=== PATIENT | female | born 1960 | race Caucasian/White ===

== ENCOUNTER 2020-11-06 13:28 | Outpatient (REF) | payer MEDICAID, SELFPAY ==
--- NOTE | ~2020-11-06 | US_ITS ---
EXAMINATION: US RETROPERITONEAL LIMITED (RENAL ONLY) CLINICAL INFORMATION: Renal stones. COMPARISON: Renal ultrasound 11/06/2019 and 08/14/2019. KUB 09/19/2019 and 09/07/2017. CT abdomen and pelvis 07/22/2017. TECHNIQUE: Real-time imaging of the kidneys. FINDINGS: RIGHT KIDNEY: 11.5 x 4.0 x 5.0 cm (SAG x AP x TRV). The kidney is normal in size, contour, and echogenicity. Renal cortical thickness is normal. No calculi or focal parenchymal lesions. No hydronephrosis. LEFT KIDNEY: 10.6 x 3.7 x 5.1 cm (SAG x AP x TRV). The kidney is normal in size, contour, and echogenicity. Renal cortical thickness is normal. No calculi or focal parenchymal lesions. No hydronephrosis. US/US renal BI IMPRESSION: Normal renal ultrasound.
== END 2020-11-06 13:29 | disposition home or self-care (01) ==
LOC: HO.US 13:28
PROVIDERS: Visit Provider Urology
DX: N20.0 Calculus of kidney (principal)
CPT/HCPCS: 76775

== ENCOUNTER 2020-11-06 14:12 | Outpatient (REF) | payer MEDICAID, SELFPAY | END 2020-11-06 14:13 | disposition home or self-care (01) | LOC: HO.LAB 14:12 | PROVIDERS: Visit Provider Internal Medicine | DX: Z20.822 Contact with and (suspected) exposure to COVID-19 (principal) | CPT/HCPCS: 36415; C9803; U0003; U0005 ==

== ENCOUNTER → 2020-11-20 15:05 | Outpatient (BNVA) | payer MEDICAID, SELFPAY | PROVIDERS: PCP Internal Medicine Geriatric Medicine; Visit Provider Urology ==

== ENCOUNTER 2021-02-26 12:55 | Emergency (ER) | payer MEDICAID, SELFPAY ==
--- NOTE | 2021-02-26 | ECG_ITS ---
Test Reason : CHEST PAIN Blood Pressure : / mmHG Vent. Rate : 086 BPM Atrial Rate : 086 BPM P-R Int : 172 ms QRS Dur : 082 ms QT Int : 400 ms P-R-T Axes : 041 060 071 degrees QTc Int : 478 ms Normal sinus rhythm Lateral T- wave changes - consider ischemia (repeat ECG to assess for serial changes) Abnormal ECG When compared to the previous EKG of Lateral T wave changes present Referred By: Generic ED Physician Electronically Signed By:Bertin Leonard
--- NOTE | ~2021-02-26 | XR_ITS ---
EXAMINATION: XR CHEST CLINICAL INFORMATION: Chest pain. COMPARISON: 12/06/2018 chest radiographs. TECHNIQUE: Frontal view of the chest was obtained. FINDINGS: No significant abnormality is noted involving the heart, lungs, mediastinum, bony thorax or soft tissues. XR/XR chest 1V IMPRESSION: No acute cardiopulmonary process.
[2021-02-26 13:00] VITALS: BP 137/74; PULSE 88; RESP 18; TEMP 37.1; O2SAT 96; BMI 35.6
--- NOTE | 2021-02-26 15:01 | ECG_ITS ---
Test Reason : REPEAT Blood Pressure : / mmHG Vent. Rate : 083 BPM Atrial Rate : 083 BPM P-R Int : 166 ms QRS Dur : 082 ms QT Int : 418 ms P-R-T Axes : 039 073 064 degrees QTc Int : 491 ms Normal sinus rhythm with sinus arrhythmia Nonspecific T wave changes Prolonged QT Abnormal ECG When compared with ECG of 26-FEB-2021 13:11, No significant change was found Referred By: Jyoti De La Rosa Electronically Signed By:Bertin Leonard
--- NOTE | 2021-02-26 15:02 | ED.CHESTPAIN ---
HPI - Chest Pain General Chief Complaint: Chest Pain Stated Complaint: chest pain Time Seen by Provider: 02/26/21 13:23 Source: patient Mode of arrival: ambulatory Limitations: no limitations History of Present Illness MD complaint: chest pain Onset (ago): day(s) (Tuesday then came back today worse since waking this AM) Timing of current episode: constant Prior episodes: Yes Onset: during rest Pain location: substernal Pain radiation: neck Severity: moderate Quality: heaviness Relieving factors: nothing Exacerbating factors: nothing Treatment prior to arrival: none Related Data Home Medications Medication Instructions Recorded Confirmed No Known Home Meds 11/20/20 11/20/20 Allergies Allergy/AdvReac Type Severity Reaction Status Date / Time acetaminophen Allergy Unknown MAKES HER Verified 02/26/21 12:59 [From EXCEDRIN BACK & BODY] FEEL SICK aspirin Allergy Unknown MAKES HER Verified 02/26/21 12:59 [From EXCEDRIN BACK & BODY] FEEL SICK calcium carbonate Allergy Unknown MAKES HER Verified 02/26/21 12:59 [From EXCEDRIN BACK & BODY] FEEL SICK caffeine AdvReac Unknown feels dizzy Verified 02/26/21 12:59 [Excedrin Extra Strength] Review of Systems Review of Systems: Constitutional : No Weight loss, No Fever, No Chills ENT/Mouth : No sore throat, No Rhinorrhea Eyes: No Eye Pain, No Swelling Cardiovascular : pos Chest Pain, no SOB, no Dyspnea on Exertion, No Orthopnea, No Edema, No Palpitations Respiratory : No Cough, No Sputum Gastrointestinal : no Nausea, No Vomiting, No Diarrhea, No abdominal Pain, No Hematochezia, No Melena Genitourinary : No Dysuria, No Urinary Frequency Musculoskeletal : No joint pain, No Myalgias, No Joint Swelling Skin : No Skin Lesions, No rash Neuro : No Weakness, No Numbness, No Dizziness, No Headache Psych : No Anxiety/Panic, No Depression Heme/Lymph: No Bruising, No Lymphadenopathy Endocrine : No Polyuria, No Polydipsia All other systems reviewed and are negative [facility] Past Medical History Medical History Asthma HTN (hypertension) Social History Social History (Updated 02/26/21 @ 15:29 by Jyoti De La Rosa DO) Patient Tobacco Use Status: Never used Tobacco Use of substances other than those prescribed or required for medical reasons: No Advance Directives: Yes Advance Directives Information Provided: Yes Advance Directives on File: No Physical Exam Vital Signs: Vital Signs: Last Vital Signs Temp 98.7 F 02/26/21 13:00 Pulse 88 02/26/21 13:00 Resp 18 02/26/21 13:00 BP 137/74 02/26/21 13:00 Pulse Ox 96 02/26/21 13:00 Body Mass Index 35.6 Appearance: Alert. Oriented X3. No acute distress. Eyes: Pupils equal, round and reactive to light. ENT: Pharynx normal. Neck: Normal inspection. Neck supple. CVS: Normal heart rate and rhythm. Pulses normal. Chest: ttp along upper costochondral border Respiratory: No respiratory distress. Breath sounds normal. Abdomen: Soft and nontender. Skin: Skin warm and dry. Normal skin color. Normal skin turgor. Extremities: No lower extremity edema. No calf ttp Neuro: Oriented X 3. No motor deficit. No sensory deficit. Course Course Course Narrative: signed out to Dr. Diaz pending labs and workup MDM - Chest Pain MDM Narrative Medical decision making narrative: 60 yo female with asthma, HTN, denies prior heart disease c/o chest pain and states her lungs hurt, it happened last week and resolved returns today early this AM she has nonspecific EKG changes does not meet criteria for STEMI will need labs, troponin, IV morphine for pain, ddimer, has allergy to aspirin - dispo per results and findings. ECG Data ECG #1: Attestation: I personally reviewed and interpreted this ECG as follows: ECG interpretation date: 02/26/21 ECG interpretation time: 15:13 Interpretation: Rate: 83 Rhythm: NSR [place]: normal Normal P waves. Normal LA NENA. Normal QRS complex. ST T wave : nonspecific I and aVL does not meet criteria for 1mm HARVEY, bipashic t wave in aVL qTC: prolonged prior studies: changed in lateral leads from 2015 The study has been interpreted contemporaneously by me. . Discharge Plan Discharge Clinical Impression: Chest pain Prescriptions: No Action No Known Home Meds RF: 0
[2021-02-26] MEDS: ondansetron HCL 4 MG/2 ML VIAL IVPUSH (16:26)
[2021-02-26] MEDS: Morphine Sulfate 4 MG/ML CARTRIDGE IVPUSH (16:26)
[2021-02-26 16:30] VITALS: BP 132/77; PULSE 75; RESP 16; O2SAT 97
[2021-02-26 16:32] LABS: MANUAL DIFF FLAG NO
[2021-02-26 16:36] LABS: Basophils Percent Auto 0.2 % (0-2); Eosinophils Absolute Auto 0.1 X10*3/uL (0.0-0.4); Eosinophils Percent Auto 1.5 % (0-4); Hematocrit 40.8 % (37-47); Hemoglobin 12.5 g/dl (12.0-16.0); Imm Gran Abs Auto 0.02 X10*3/uL (0.00-0.03); Imm Gran Pct Auto 0.2 % (0.0-0.4); Lymphocytes Absolute Auto 1.5 X10*3/uL (1.2-4.9); Lymphocytes Percent Auto 18.2 % (20-40); Mean Corpuscular HGB Conc 30.6 g/dl (31.0-35.0); Mean Corpuscular Hemoglobin 26.7 pg (27.0-33.0); Mean Platelet Volume 11.1 fL (9.4-12.3); Monocytes Absolute Auto 0.5 X10*3/uL (0.1-1.2); Monocytes Percent Auto 5.8 % (2-11); Neutrophils Absolute Auto 6.2 X10*3/uL (2.0-8.3); Neutrophils Percent Auto 74.1 % (45-73); Platelet Count 239 X10*3/uL (160-400); Red Blood Count 4.69 X10*6/uL (4.20-5.50); Red Cell Distribution Width 14.6 % (11.0-16.0); White Blood Count 8.4 X10*3/uL (4.8-10.8)
[2021-02-26 16:41] LABS: INTERNATIONAL NORM RATIO 0.9 (0.9-1.1); Prothrombin Time 11.1 SEC (10.8-13.0)
[2021-02-26 16:44] LABS: Partial Thromboplastin Time 32.9 SEC (24.1-38.0)
[2021-02-26 16:49] LABS: D Dimer < 200 NG/ML
[2021-02-26 17:02] LABS: Alanine Aminotransferase 18 U/L (0-31); Albumin Level 4.3 g/dL (3.5-5.0); Alkaline Phosphatase 130 U/L (39-117); Anion Gap 15 (12-20); Aspartate Amino Transferase 13 U/L (5-31); Bilirubin Direct 0.2 mg/dL (0.0-0.5); Bilirubin Total 0.6 mg/dL (0.0-1.0); Blood Urea Nitrogen 25 mg/dL (9-16); Calcium 10.2 mg/dL (8.4-10.2); Carbon Dioxide 26 mmol/L (22-29); Chloride 104 mmol/L (96-108); Estimated Glomerular Filt Rate 59; Glucose Random 88 mg/dL (60-115); Potassium 4.2 mmol/L (3.3-5.1); Sodium 141 mmol/L (135-145); Total Protein 7.4 g/dL (6.5-8.0)
[2021-02-26 17:08] LABS: Troponin-I High Sensitivity 92.4 ng/L (<3.5-17.0)
[2021-02-26 17:26] LABS: B Type Natriuretic Peptide 54 pg/mL (<100)
--- NOTE | 2021-02-26 17:50 | ECG_ITS ---
Test Reason : CP, REPEAT Blood Pressure : / mmHG Vent. Rate : 099 BPM Atrial Rate : 099 BPM P-R Int : 160 ms QRS Dur : 082 ms QT Int : 378 ms P-R-T Axes : 040 072 059 degrees QTc Int : 485 ms Sinus rhythm with Premature atrial complexes Nonspecific T wave changes When compared with ECG of 26-FEB-2021 15:04, Premature atrial complexes are now Present Referred By: Sana Diaz Electronically Signed By:Bertin Leonard
[2021-02-26] MEDS: Aspirin Enteric Coated 325 MG TABLET.DR PO (18:01)
[2021-02-26] MEDS: Nitroglycerin 0.4 MG TAB.SUBL SUBLINGUAL (18:06)
[2021-02-26 18:13] VITALS: BP 138/77
[2021-02-26] MEDS: Heparin Sodium,Porcine 5,000 UNIT/ML VIAL 3400 UNIT IVPUSH (18:38)
[2021-02-26] MEDS: Heparin Sodium,Porcine/1/2NS 25,000 UNIT/250 ML IV.SOLN 11.97 UNIT IVCONT (18:39)
[2021-02-26] MEDS: Ticagrelor 90 MG TABLET 180 MG PO (18:44)
[2021-02-26 18:45] LABS: Troponin-I High Sensitivity 84.1 ng/L (<3.5-17.0)
--- NOTE | 2021-02-26 18:47 | PC.NURSE ---
B/P 176/94, pain level 9. Sublingual nitro tab given, pt reports pain level 8, bp 138/78. O2 sat 92% RA, 2L NC applied , o2 sat 97%. Pt ST on monitor. Heparin drip started per protocol at 14u/kg/hr. Pt pending transfer to [facility]. Attempting to place second iv line, son at bedside.
--- NOTE | 2021-02-26 19:10 | PC.NURSE ---
report givn to
--- NOTE | 2021-02-26 19:10 | PC.NURSE ---
Report given to receiving nurse Lizette RN at [facility].
== END 2021-02-26 19:28 | disposition short-term general hospital (02) ==
PROVIDERS: Emergency Medicine; Emergency Provider Emergency Medicine; PCP Internal Medicine Geriatric Medicine
DX: R07.9 Chest pain, unspecified (principal); J45.909 Unspecified asthma, uncomplicated; I10 Essential (primary) hypertension
CPT/HCPCS: 36415; 71045; 80048; 80076; 83735; 83880; 84484; 85025; 85379; 85610; 85730; 93005; 96374; 96375; 99285; 99291; J2270; J2405

== ENCOUNTER 2021-04-20 09:37 | Outpatient (REF) | payer MEDICAID, SELFPAY | END 2021-04-20 09:38 | disposition home or self-care (01) | LOC: HO.LAB 09:37 | PROVIDERS: PCP Internal Medicine Geriatric Medicine; Visit Provider Internal Medicine | DX: Z20.822 Contact with and (suspected) exposure to COVID-19 (principal) | CPT/HCPCS: C9803; U0003; U0005 ==

== ENCOUNTER 2021-05-29 13:55 | Outpatient (REF) | payer MEDICAID, SELFPAY ==
--- NOTE | ~2021-05-29 | MM_ITS ---
EXAMINATION: MM SCREENING DIGITAL BREAST TOMOSYNTHESIS, BILATERAL CLINICAL INFORMATION: Screening. Asymptomatic. The lifetime risk of breast cancer based on the Tyrer-Cuzick Model is 5%. COMPARISON: Mammography: 12/21/2018, 10/31/2017, 09/17/2016 TECHNIQUE: Digital breast tomosynthesis is performed in both the craniocaudal and mediolateral oblique views along with computer-aided detection (CAD). Synthesized 2D images are generated from the tomosynthesis. FINDINGS: There are scattered areas of fibroglandular density (ACR BI-RADS breast composition Category b). There are no significant masses, abnormal calcifications, or other abnormalities. Parenchymal pattern is similar to prior studies. Scattered asymmetries are stable. There is no developing density. No interval mass or architectural abnormality. MM/MM tomosynthesis screening BI IMPRESSION: No mammographic evidence of malignancy. ASSESSMENT: BI-RADS 2: Benign RECOMMENDATION: Routine annual mammography screening. This patient's information was entered into a reminder system with a target due date for their next mammogram.
== END 2021-05-29 13:56 | disposition home or self-care (01) ==
LOC: HO.MAMMO 13:55
PROVIDERS: PCP Internal Medicine Geriatric Medicine; Visit Provider Internal Medicine Geriatric Medicine
DX: Z12.31 Encounter for screening mammogram for malignant neoplasm of breast (principal)
CPT/HCPCS: 77063; 77067

== ENCOUNTER 2021-10-14 14:02 | Outpatient (REF) | payer MEDICAID, SELFPAY ==
--- NOTE | ~2021-10-14 | US_ITS ---
EXAMINATION: US RETROPERITONEAL LIMITED (RENAL ONLY) CLINICAL INFORMATION: Calculus of kidney. COMPARISON: Renal ultrasound 11/06/2020 and 11/06/2019. X-ray abdomen KUB 09/19/2019. CT abdomen and pelvis 07/22/2017. TECHNIQUE: Real-time imaging of the kidneys. FINDINGS: RIGHT KIDNEY: 10.6 x 4.1 x 4.6 cm (SAG x AP x TRV). The kidney is normal in size, contour, and echogenicity. Renal cortical thickness is normal. No calculi or focal parenchymal lesions. No hydronephrosis. LEFT KIDNEY: 10.2 x 3.3 x 4.4 cm (SAG x AP x TRV). The kidney is normal in size, contour, and echogenicity. Renal cortical thickness is normal. No calculi or focal parenchymal lesions. No hydronephrosis. US/US renal BI IMPRESSION: Unremarkable renal ultrasound.
== END 2021-10-14 14:03 | disposition home or self-care (01) ==
LOC: HO.US 14:02
PROVIDERS: Visit Provider Urology
DX: N20.0 Calculus of kidney (principal)
CPT/HCPCS: 76775

== ENCOUNTER → 2021-11-20 11:31 | Outpatient (BNVA) | payer MEDICAID, SELFPAY | PROVIDERS: PCP Internal Medicine Geriatric Medicine | DX: Z13.89 Encounter for screening for other disorder (principal) ==

== ENCOUNTER → 2021-12-04 10:10 | Outpatient (BNVA) | payer MEDICAID, SELFPAY | PROVIDERS: PCP Internal Medicine Geriatric Medicine | DX: Z13.89 Encounter for screening for other disorder (principal) ==

== ENCOUNTER 2022-06-01 12:53 | Outpatient (REF) | payer MEDICAID, SELFPAY ==
--- NOTE | ~2022-06-01 | MM_ITS ---
EXAMINATION: MM SCREENING DIGITAL BREAST TOMOSYNTHESIS, BILATERAL CLINICAL INFORMATION: Screening. Asymptomatic. The lifetime risk of breast cancer based on the Tyrer-Cuzick Model is 4%. COMPARISON: Mammography: 05/29/2021, 12/21/2018, 10/31/2017 TECHNIQUE: Digital breast tomosynthesis is performed in both the craniocaudal and mediolateral oblique views along with computer-aided detection (CAD). Synthesized 2D images are generated from the tomosynthesis. FINDINGS: There are scattered areas of fibroglandular density (ACR BI-RADS breast composition Category b). There are no significant masses, abnormal calcifications, or other abnormalities. No developing density or interval architectural abnormality. Minor asymmetries stable. Parenchymal pattern is similar to prior studies. The axilla are unremarkable. MM/MM tomosynthesis screening BI IMPRESSION: No mammographic evidence of malignancy. ASSESSMENT: BI-RADS 2: Benign RECOMMENDATION: Routine annual mammography screening. This patient's information was entered into a reminder system with a target due date for their next mammogram.
== END 2022-06-01 12:54 | disposition home or self-care (01) ==
LOC: HO.MAMMO 12:53
PROVIDERS: PCP Internal Medicine Geriatric Medicine; Visit Provider Internal Medicine Geriatric Medicine
DX: Z12.31 Encounter for screening mammogram for malignant neoplasm of breast (principal)
CPT/HCPCS: 77063; 77067

== ENCOUNTER 2022-07-06 08:51 | Outpatient (REF) | payer MEDICAID, SELFPAY ==
--- NOTE | ~2022-07-06 | US_ITS ---
EXAMINATION: US RETROPERITONEAL LIMITED (RENAL ONLY) CLINICAL INFORMATION: Calculus of kidney. COMPARISON: Ultrasound retroperitoneal limited (renal only) 10/14/2021 and 11/06/2020. X-ray abdomen KUB 09/19/2019 and 09/07/2017. CT abdomen and pelvis without contrast 07/22/2017. MR abdomen without and with contrast 07/02/2016. TECHNIQUE: Real-time imaging of the kidneys. FINDINGS: RIGHT KIDNEY: 10.9 x 3.8 x 4.4 cm (SAG x AP x TRV). The kidney is normal in size, contour, and echogenicity. Renal cortical thickness is normal. No calculi or focal parenchymal lesions. No hydronephrosis. LEFT KIDNEY: 8.8 x 3.3 x 4.9 cm (SAG x AP x TRV). The kidney is normal in size, contour, and echogenicity. Renal cortical thickness is normal. No calculi or focal parenchymal lesions. No hydronephrosis. US/US renal BI IMPRESSION: Normal renal ultrasound. No stone seen.
== END 2022-07-06 08:52 | disposition home or self-care (01) ==
LOC: HO.US 08:51
DX: N20.0 Calculus of kidney (principal)
CPT/HCPCS: 76775

== ENCOUNTER 2022-08-04 08:00 | Outpatient (REF) | payer MEDICAID, SELFPAY ==
--- NOTE | ~2022-08-04 | XR_ITS ---
EXAMINATION: XR HAND, RIGHT CLINICAL INFORMATION: M79.641 - Pain in right hand. Patient notes pain third finger PIP. COMPARISON: None TECHNIQUE: PA, lateral, and oblique views of the right hand. FINDINGS: No acute or healing fracture, dislocation, or destructive process. The ulnar variance is neutral. There are degenerative changes DIP joints, greatest index finger. The carpus, MCP, and PIP joints are unremarkable. XR/XR hand RT min 3V IMPRESSION: Degenerative changes DIP joints, greatest index finger.
== END 2022-08-04 08:01 | disposition home or self-care (01) ==
LOC: HO.HOSX 08:00
PROVIDERS: Visit Provider Physician Assistant
DX: M67.441 Ganglion, right hand (principal)
CPT/HCPCS: 73130; 99202; 99212

== ENCOUNTER → 2022-11-01 08:28 | Outpatient (REF) | payer MEDICAID, SELFPAY ==
--- NOTE | 2022-11-01 | CA_ITS ---
Acquisition Time: 2022-11-01 09:05:31 Total Exercise Time: 00:03:44 Test Indications: PREOP Medications: SEE CHART Protocol: LYNDSAY Max HR: 136 BPM 86% of Pred: 157 BPM Max BP: 142/062 mmHG Max Work Load: 5.2 METS Exercise stress test using Lyndsay protocol, total of 3 min 44 sec, patient was getting tired and treadmil was stopped. METS 5.2, TAPHR upt o 85%. Pt denies CP, reports SOB. EKG with occasional PAC's no ischemic changes seen, Test reviewed with Dr. Maldonado. Referred By: Anglea Mcgowan Overread By: Alivia Silva NP
== END ==
LOC: HO.CARD 08:28
PROVIDERS: PCP Nurse Practitioner Primary Care; Visit Provider Nurse Practitioner Primary Care
DX: Z01.818 Encounter for other preprocedural examination (principal)
CPT/HCPCS: 93017

== ENCOUNTER → 2022-11-18 07:58 | Outpatient (REF) | payer MEDICAID, SELFPAY ==
--- NOTE | 2022-11-18 | CA_ITS ---
Acquisition Time: 2022-11-18 08:14:03 Total Exercise Time: 00:02:00 Test Indications: Pre-Op Evaluation Medications: SEE H Protocol: LEXISCAN Max HR: 114 BPM 72% of Pred: 157 BPM Max BP: 132/070 mmHG Max Work Load: 1.0 METS Pharmacoloigcal stress test with Lexiscan while sitting and kicking her legs, without anginal symptoms, without arrthymias, with normotensive response with non-diagnostic EKG. Patient reversed with Aminophylline 75mg IVP. Nuclear images pending. Test reviewed with Dr. Leonard. Referred By: Angela Mcgowan Overread By: ZARI HORNE
--- NOTE | ~2022-11-18 | NM_ITS ---
Myocardial perfusion study Indication: Chest pain to evaluate for myocardial ischemia Technique: The patient was brought in for a Lexiscan perfusion study on 11/18/2022. Patient performed low-level exercise and was injected 0.4 mg of Lexiscan intravenously. Within a minute of injection, 30 mCi of sestamibi was given intravenously. Images were obtained using the SPECT gamma camera interlaced with the gating device. Images were obtained in supine position. Resting perfusion study was performed on 11/19/2022. Patient was administered 30 mCi of sestamibi intravenously at rest. Images were then obtained in supine position. Images obtained with and without CT attenuation. Total DLP 82 mGy-cm Images were processed with the software and compared side to side in short axis, horizontal long axis and vertical long axis views. Findings: Both stress and rest perfusion imaging was suboptimal due to intense subdiaphragmatic uptake interfering with inferior wall uptake The stress perfusion study showed non attenuated images were also show normal uptake of radiotracer in all segments of LV myocardium. Attenuation corrected images show mildly reduced uptake in the apex of the LV myocardium. The gated study shows normal LV systolic function with calculated LVEF of 51%. LV cavity is normal in size. The gated study shows normal systolic wall thickening and contraction of segments. Resting study shows non attenuated images show normal uptake of radiotracer in all segments of LV myocardium. Gating at rest reveals normal systolic wall motion with ejection fraction at 45%. The findings are consistent with normal myocardial perfusion. NM/NM naveed perf SPECT rest & str Impression: 1. Myocardial perfusion imaging study shows normal myocardial perfusion 2. Gated LVEF is 51% (visually appears to be minimal, consider performing in echocardiogram to assess LV systolic function more accurately 3. Transient ischemic dilatation not present EKG is nondiagnostic for ischemia
== END ==
LOC: HO.CARD 07:58
PROVIDERS: PCP Internal Medicine Geriatric Medicine; Visit Provider Nurse Practitioner Primary Care
DX: R07.9 Chest pain, unspecified (principal)
CPT/HCPCS: 78452; 93017; A9500; J0280; J2785

== ENCOUNTER 2022-11-29 08:55 | Outpatient (REF) | payer MEDICAID, SELFPAY ==
--- NOTE | ~2022-11-29 | US_ITS ---
EXAMINATION: US RETROPERITONEAL LIMITED (RENAL ONLY) CLINICAL INFORMATION: Calculus of kidney. COMPARISON: Renal ultrasound 07/06/2022 and 10/14/2021. X-ray abdomen KUB 09/19/2019. CT abdomen and pelvis 07/22/2017. TECHNIQUE: Real-time imaging of the kidneys. FINDINGS: RIGHT KIDNEY: 12.0 x 4.2 x 4.1 cm (SAG x AP x TRV). The kidney is normal in size, contour, and echogenicity. Renal cortical thickness is normal. No calculi or focal parenchymal lesions. No hydronephrosis. There is mild pelvic fullness.. LEFT KIDNEY: 10.3 x 3.6 x 4.6 cm (SAG x AP x TRV). The kidney is normal in size, contour, and echogenicity. Renal cortical thickness is normal. No calculi or focal parenchymal lesions. No hydronephrosis. There is mild pelvic fullness. US/US renal BI IMPRESSION: Bilateral mild pelvic fullness.
== END 2022-11-29 08:56 | disposition home or self-care (01) ==
LOC: HO.US 08:55
PROVIDERS: PCP Internal Medicine Geriatric Medicine; Visit Provider Urology
DX: N20.0 Calculus of kidney (principal)
CPT/HCPCS: 76775

== ENCOUNTER → 2022-12-10 13:36 | Outpatient (BNVA) | payer MEDICAID, SELFPAY | PROVIDERS: PCP Internal Medicine Geriatric Medicine; Visit Provider Urology ==

== ENCOUNTER 2023-03-21 13:08 | Outpatient (REF) | payer MEDICAID, SELFPAY | END 2023-03-21 13:09 | disposition home or self-care (01) | LOC: HO.LNP 13:08 | PROVIDERS: Visit Provider Internal Medicine | DX: Z20.822 Contact with and (suspected) exposure to COVID-19 (principal); J40 Bronchitis, not specified as acute or chronic | CPT/HCPCS: 87636 ==

== ENCOUNTER 2023-06-07 12:32 | Outpatient (REF) | payer MEDICAID, SELFPAY | END 2023-06-07 12:33 | disposition home or self-care (01) | LOC: HO.MAMMO 12:32 | PROVIDERS: Visit Provider Internal Medicine Geriatric Medicine | DX: Z12.31 Encounter for screening mammogram for malignant neoplasm of breast (principal) | CPT/HCPCS: 77063; 77067 ==

== ENCOUNTER → 2023-06-07 13:30 | Outpatient (BNV) | payer MEDICAID, SELFPAY | PROVIDERS: Visit Provider Radiology Diagnostic Radiology | DX: Z12.31 Encounter for screening mammogram for malignant neoplasm of breast (principal) | CPT/HCPCS: 77063; 77067 ==

== ENCOUNTER 2023-10-12 14:26 | Outpatient (AMB) | payer MEDICAID, SELFPAY ==
--- NOTE | 2023-10-12 15:49 | A.OFFVIS_ITS ---
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 Zipper Language: Hot Box Operator Name: Tiffaniemaranda GREGORIA Kline/REESE DANIELS Information Interpreted: non-clinical & clinical Accompanied by: Self / Same As Patient Allergies acetaminophen [From EXCEDRIN BACK & BODY] Allergy (Unknown, Verified 10/12/23 15:53) MAKES HER FEEL SICK aspirin [From EXCEDRIN BACK & BODY] Allergy (Unknown, Verified 10/12/23 15:53) MAKES HER FEEL SICK calcium carbonate [From EXCEDRIN BACK & BODY] Allergy (Unknown, Verified 10/12/23 15:53) MAKES HER FEEL SICK caffeine [Excedrin Extra Strength] Adverse Reaction (Unknown, Verified 10/12/23 15:53) feels dizzy Medication List - Last Reconciled 10/12/23 by Priscilla Mills MD albuterol sulfate 90 mcg/actuation (Ventolin HFA) 2 puffs inhalation Q6H PRN atorvastatin 20 mg PO DAILY cholecalciferol (vitamin D3) 25 mcg PO DAILY loratadine 10 mg PO DAILY losartan-hydrochlorothiazide 50-12.5 mg 1 tab PO DAILY pantoprazole 40 mg PO DAILY pyridoxine (vitamin B6) 100 mg PO DAILY sodium chloride 0.65% (Saline Nasal) 1 - 2 sprays intranasal Q2-3H PRN HPI HPI Comments 2 History of Present Illness Details 10/12/23--Cathy is a 63-year-old female patient here for followup for history of kidney stones. Pt states she is drinking alot of water at home and watching the sodium in the diet. She has had some left flank pain and is concerned about another kidney stone. She denies gross hematuria. She denies fever. Review of chart: 12/10/2022--Telehealth visit Renal US results reviewed?11/29/22-- Kidneys: WNL, no renal calculi visualized. Plan: 10/12/23--Advised to consume adequate amou nt of water. Low salt diet. Low oxalate diet. Renal ultrasound Vitamin B6 100 mg daily [facility] Medical History (Updated 10/12/23 @ 16:46 by Priscilla Mills MD) High cholesterol High blood pressure Asthma HTN (hypertension) Social History (Updated 08/04/22 @ 10:35 by Mesfin Rizzo) Alcohol intake: never Patient Tobacco Use Status: Never used Tobacco Current occupational status: retired Current occupation: right hand dominant Review of Systems Const All systems reviewed & are unremarkable except as noted in HPI and below Reports no additional complaints Eyes Reports no additional complaints ENT Reports no additional complaints Card Denies dyspnea Resp Denies cough and Denies dyspnea GI Reports no additional complaints Reports no additional complaints Musc Reports no additional complaints Skin/Breast Denies rash and Denies unusual bruising Neuro Reports no additional complaints Psych Reports no additional complaints Endo Reports no additional complaints Ben/Lymph Reports no additional complaints Aller/Immun Reports no additional complaints Results AMB Urinalysis, Automated UA Leukoctes 0 Sarahi/uL Last Edit by GREGORIA Jernigan on 10/12/23 16:00 UA Nitrite Negative Last Edit by GREGORIA Jernigan on 10/12/23 16:00 UA Urobilinogen 0.2 mg/dL Last Edit by GREGORIA Jernigan on 10/12/23 16:0 0 UA Protein 0 mg/dL Last Edit by GREGORIA Jernigan on 10/12/23 16:00 UA pH 6.0 Last Edit by GREGORIA Jernigan on 10/12/23 16:00 UA Blood 0 Zeus/uL Last Edit by GREGORIA Jernigan on 10/12/23 16:00 UA Specific [place] 1.015 Last Edit by GREGORIA Jernigan on 10/12/23 16: 00 UA Ketone Negative Last Edit by GREGORIA Jernigan on 10/12/23 16:00 UA Bilirubin 0 mg/dL Last Edit by GREGORIA Jernigan on 10/12/23 16:00 UA Glucose 0 mg/dL Last Edit by GREGORIA Jernigan on 10/12/23 16:00 Results Reviewed Results Reviewed: Laboratory Last Values Urine pH (Auto) 6.0 10/12/23 15:55 Specific [place] (Auto) 1.015 10/12/23 15:55 Urine Protein (Auto) 0 mg/dL 10/12/23 15:55 Glucose (UA)(Auto) 0 mg/dL 10/12/23 15:55 Urine Ketones (Auto) Negative 10/12/23 15:55 Urine Blood (Auto) 0 Zeus/uL 10/12/23 15:55 Urine Nitrite (Auto) Negative 10/12/23 15:55 Urine Bilirubin (Auto) 0 mg/dL 10/12/23 15:55 Urine Urobilinogen (Auto) 0.2 mg/dL 10/12/23 15:55 Leukocyte Esterase (Auto) 0 Sarahi/uL 10/12/23 15:55 Date of Service: 11/29/22 EXAMINATION: US RETROPERITONEAL LIMITED (RENAL ONLY) CLINICAL INFORMATION: Calculus of kidney. COMPARISON: Renal ultrasound 07/06/2022 and 10/14/2021. X-ray abdomen KUB 09/19/2019. CT abdomen and pelvis 07/22/2017. TECHNIQUE: Real-time imaging of the kidneys. FINDINGS: RIGHT KIDNEY: 12.0 x 4.2 x 4.1 cm (SAG x AP x TRV). The kidney is normal in size, contour, and echogenicity. Renal cortical thickness is normal. No calculi or focal parenchymal lesions. No hydronephrosis. There is mild pelvic fullness.. LEFT KIDNEY: 10.3 x 3.6 x 4.6 cm (SAG x AP x TRV). The kidney is normal in size, contour, and echogenicity. Renal cortical thickness is normal. No calculi or focal parenchymal lesions. No hydronephrosis. There is mild pelvic fullness. IMPRESSION: Bilateral mild pelvic fullness. Assessment & Plan Assessment & Plan (1) History of renal calculi: Code(s): Z87.442 - Personal history of urinary calculi (2) Left flank discomfort: Code(s): R10.9 - Unspecified abdominal pain Plan Advised to consume adequate amount of water. Low salt diet. Low oxalate diet. Renal ultrasound Vitamin B6 100 mg daily Orders: Orders AMB Urinalysis Automated Today Z13.9 - Encounter for screening, unspecified US renal BI Today Z87.442 - Personal history of urinary calculi US renal BI 11 Months Z87.442 - Personal history of urinary calculi Medications: New pyridoxine (vitamin B6) 100 mg PO DAILY 90 tabs 3RF Patient Instructions: The patient had an opportunity to ask questions regarding treatment plan. All questions were answered. Imaging, Laboratory studies and physical exam results were discussed and reviewed in detail. No major barriers to understanding were identified. The patient expressed understanding and agreement with the above treatment plan. The patient is aware they should contact our office by phone for worsening of their current condition or the appearance of new symptoms. Compliance is encoura ged with any medications and followup testing that is ordered. It is a privilege to be allowed the opportunity to participate in the urologic care of your patient. If you have any questions or concerns regarding treatment for the above conditions please do not hesitate to contact me. The office telephone contact is [phone]. This note is constructed in part using voice recognition software. While every effort has been made to ensure accuracy supervisor filter assembly errors may have been included. Yours sincerely, Priscilla Mills MD Coding Level of Care Code Est Pt Level 4 (30840) Diagnoses History of renal calculi Z87.442 Left flank discomfort R10.9
== END 2023-10-12 16:55 | disposition home or self-care (01) ==
PROVIDERS: PCP Internal Medicine Geriatric Medicine; Visit Provider Urology
DX: Z87.442 Personal history of urinary calculi (principal); R10.9 Unspecified abdominal pain; Z13.9 Encounter for screening, unspecified
CPT/HCPCS: 99214

== ENCOUNTER → 2023-10-12 14:26 | Outpatient (BNVA) | payer MEDICAID, SELFPAY | PROVIDERS: PCP Internal Medicine Geriatric Medicine; Visit Provider Urology | DX: R10.9 Unspecified abdominal pain (principal); Z87.442 Personal history of urinary calculi | CPT/HCPCS: 81003; 99212 ==

== ENCOUNTER 2023-10-26 14:02 | Outpatient (REF) | payer MEDICAID, SELFPAY ==
--- NOTE | ~2023-10-26 | US_ITS ---
EXAMINATION: US RETROPERITONEAL LIMITED (RENAL ONLY) CLINICAL INFORMATION: Personal history of urinary calculi. COMPARISON: Renal ultrasound 11/29/2022 and 07/06/2022. X-ray abdomen KUB 09/19/2019 and 09/07/2017. CT abdomen and pelvis 08/23/2016. MR abdomen without and with contrast 07/02/2016. TECHNIQUE: Real-time imaging of the kidneys. FINDINGS: RIGHT KIDNEY: 12.1 x 5.5 x 4.4 cm (SAG x AP x TRV). The kidney is normal in size, contour, and echogenicity. Renal cortical thickness is normal. No calculi or focal parenchymal lesions. There is mild pelviectasis, without nhi hydronephrosis. LEFT KIDNEY: 10.7 x 3.4 x 4.4 cm (SAG x AP x TRV). The kidney is normal in size, contour, and echogenicity. Renal cortical thickness is normal. No calculi or focal parenchymal lesions. There is mild pelviectasis, without nhi hydronephrosis. US/US renal BI IMPRESSION: Unremarkable examination. No renal calculus or nhi hydronephrosis is noted bilaterally.
== END 2023-10-26 14:03 | disposition home or self-care (01) ==
LOC: HO.US 14:02
PROVIDERS: PCP Internal Medicine Geriatric Medicine; Visit Provider Urology
DX: Z87.442 Personal history of urinary calculi (principal)
CPT/HCPCS: 76775

== ENCOUNTER 2023-11-11 15:44 | Outpatient (AMB) | payer MEDICAID, SELFPAY ==
--- NOTE | 2023-11-11 15:48 | A.OFFVIS_ITS ---
Intake Intake Visit Reasons: US Results Intake Note: Patient presents today for a follow-up on Kidney Stones US Results: medications: Vitamin B6 Blood thinners: none Production Maintenance Mechanic Required: Yes Production Maintenance Mechanic Language: Legal Office Administrator Name: GREGORIA Jernigan/REESE DANIELS Information Interpreted: non-clinical & clinical Accompanied by: Self / Same As Patient Allergies acetaminophen [From EXCEDRIN BACK & BODY] Allergy (Unknown, Verified 11/11/23 15:48) MAKES HER FEEL SICK aspirin [From EXCEDRIN BACK & BODY] Allergy (Unknown, Verified 11/11/23 15:48) MAKES HER FEEL SICK calcium carbonate [From EXCEDRIN BACK & BODY] Allergy (Unknown, Verified 11/11/23 15:48) MAKES HER FEEL SICK caffeine [Excedrin Extra Strength] Adverse Reaction (Unknown, Verified 11/11/23 15:48) feels dizzy HPI HPI Comments History of Present Illness Details 11/11/23---Telehealth FU for h/o kidney st ones. Renal US reviewed--10/26/23--WNL -no stones visual Advised to consume adequate amount of water. Low salt diet. Low oxalate diet. Vitamin B6 100 mg daily Review of chart: 10/12/23--Cathy is a 63-year-old female patient here for followup for history of kidney stones. Pt states she is drinking alot of water at home and watching the sodium in the diet. She has had some left flank pain and is concerned about another kidney stone. She denies gross hematuria. She denies fever. Plan discussed --Advised to consume adequate amount of water. Low salt diet. Low oxalate diet. Monitor kidneys with Renal ultrasound. Vitamin B6 100 mg daily 12/10/2022--Telehealth visit Renal US results reviewed?11/29/22-- Kidneys: WNL, no renal calculi visualized. 11/11/23--PLAN: Advised to consume adequate amount of water. Low salt diet. Low oxalate diet. Cont to monitor kidneys---Renal ultrasound Vitamin B6 100 mg daily PFS Medical History (Updated 10/12/23 @ 16:46 by Priscilla Mills MD) High cholesterol High blood pressure Asthma HTN (hypertension) Family History (Updated 11/11/23 @ 15:49 by GREGORIA Jernigan) Father No problems noted. Mother No problems noted. Social History (Updated 08/04/22 @ 10:35 by Mesfin Rizzo) Alcohol intake: never Patient Tobacco Use Status: Never used Tobacco Current occupational status: retired Current occupation: right hand dominant Review of Systems Const All systems reviewed & are unremarkable except as noted in HPI and below Reports no additional complaints Eyes Reports no additional complaints ENT Reports no additional complaints Card Reports no additional complaints Resp Reports no additional complaints GI Reports no additional complaints Reports as per HPI Musc Reports no additional complaints Skin/Breast Reports system reviewed and no additional complaints, except as documented Neuro Reports no additional complaints Psych Reports no additional complaints Endo Reports no additional complaints Ben/Lymph Reports no additional complaints Aller/Immun Reports no additional complaints Results Reviewed Results Reviewed: Date of Service: 10/26/23 EXAMINATION: US RETROPERITONEAL LIMITED (RENAL ONLY) CLINICAL INFORMATION: Personal history of urinary calculi. COMPARISON: Renal ultrasound 11/29/2022 and 07/06/2022. X-ray abdomen KUB 09/19/2019 and 09/07/2017. CT abdomen and pelvis 08/23/2016. MR abdomen without and with contrast 07/02/2016. TECHNIQUE: Real-time imaging of the kidneys. FINDINGS: RIGHT KIDNEY: 12.1 x 5.5 x 4.4 cm (SAG x AP x TRV). The kidney is normal in size, contour, and echogenicity. Renal cortical thickness is normal. No calculi or focal parenchymal lesions. There is mild pelviectasis, without nhi hydronephrosis. LEFT KIDNEY: 10.7 x 3.4 x 4.4 cm (SAG x AP x TRV). The kidney is normal in size, contour, and echogenicity. Renal cortical thickness is normal. No calculi or focal parenchymal lesions. There is mild pelviectasis, without nhi hydronephrosis. IMPRESSION: Unremarkable examination. No renal calculus or nhi hydronephrosis is noted bilaterally. Assessment & Plan Assessment & Plan (1) History of renal calculi: Code(s): Z87.442 - Personal history of urinary calculi (2) Left flank discomfort: Code(s): R10.9 - Unspecified abdominal pain Plan Advised to consume adequate amount of water. Low salt diet. Low oxalate diet. Cont to monitor kidneys---Renal ultrasound Vitamin B6 100 mg daily Patient Instructions: The patient had an opportunity to ask questions regarding treatment plan. All questions were answered. Imaging, Laboratory studies and physical exam results were discussed and reviewed in detail. No major barriers to understanding were identified. The patient expressed understanding and agreement with the above treatment plan. The patient is aware they should contact our office by phone for worsening of their current condition or the appearance of new symptoms. Compliance is encouraged with any medications and followup testing that is ordered. It is a privilege to be allowed the opportunity to participate in the urologic care of your patient. If you have any questions or concerns regarding treatment for the above conditions please do not hesitate to contact me. The office telephone contact is [phone]. This note is constructed in part using voice recognition software. While every effort has been made to ensure accuracy machine maintenance servicer errors may have been included. Yours sincerely, Priscilla Mills MD Telehealth Telehealth Location of provider rendering services: practice address Location of patient: address on file Patient Identification confirmed using: Name, : Yes Telehealth method: voice only Patient verbally consented to treatment: Yes Patient verbally consented to billing insurance company: Yes Patient informed of any privacy concerns related to visit: Yes Minutes spent on Phone/Video with Pt.: 12 Coding Level of Care Code Tele Est Pt Level 3 (01747) Diagnoses History of renal calculi Z87.442 Left flank discomfort R10.9
== END 2023-11-11 16:46 | disposition home or self-care (01) ==
LOC: HO.HUSH 15:44
PROVIDERS: PCP Internal Medicine Geriatric Medicine; Visit Provider Urology
DX: Z87.442 Personal history of urinary calculi (principal); R10.9 Unspecified abdominal pain
CPT/HCPCS: 99213

== ENCOUNTER → 2023-11-11 15:44 | Outpatient (BNVA) | payer MEDICAID, SELFPAY | PROVIDERS: PCP Internal Medicine Geriatric Medicine; Visit Provider Urology ==

== ENCOUNTER 2023-12-14 10:08 | Outpatient (REF) | payer MEDICAID, SELFPAY | END 2023-12-14 10:09 | disposition home or self-care (01) | LOC: HO.HHCL 10:08 | PROVIDERS: Visit Provider Internal Medicine Geriatric Medicine | DX: Z13.89 Encounter for screening for other disorder (principal) ==

== ENCOUNTER 2023-12-15 11:17 | Outpatient (REF) | payer MEDICAID, SELFPAY ==
[2023-12-15 13:21] LABS: MANUAL DIFF FLAG NO
[2023-12-15 13:32] LABS: Basophils Percent Auto 0.5 % (0-2); Eosinophils Absolute Auto 0.1 X10*3/uL (0.0-0.4); Eosinophils Percent Auto 1.8 % (0-4); Hematocrit 38.8 % (37.0-47.0); Hemoglobin 12.1 g/dl (12.0-16.0); Imm Gran Abs Auto 0.01 X10*3/uL (0.00-0.03); Imm Gran Pct Auto 0.2 % (0.0-0.4); Lymphocytes Absolute Auto 1.6 X10*3/uL (1.2-4.9); Lymphocytes Percent Auto 26.2 % (20-40); Mean Corpuscular HGB Conc 31.2 g/dl (31.0-35.0); Mean Corpuscular Hemoglobin 26.7 pg (27.0-33.0); Mean Corpuscular Volume 85.5 fL (80.0-98.0); Mean Platelet Volume 11.1 fL (9.4-12.3); Monocytes Absolute Auto 0.4 X10*3/uL (0.1-1.2); Monocytes Percent Auto 6.6 % (2-11); Neutrophils Absolute Auto 3.9 x10*3/uL (2.0-8.3); Neutrophils Percent Auto 64.7 % (45-73); Platelet Count 252 X10*3/uL (160-400); Red Blood Count 4.54 X10*6/uL (4.20-5.50); Red Cell Distribution Width 14.8 % (11.0-16.0)
[2023-12-15 13:55] LABS: Alanine Aminotransferase 27 U/L (0-31); Albumin Level 3.9 g/dL (3.5-5.0); Alkaline Phosphatase 131 U/L (39-117); Anion Gap 10 (12-20); Aspartate Amino Transferase 17 U/L (5-31); Bilirubin Total 0.6 mg/dL (0.0-1.0); Blood Urea Nitrogen 22 mg/dL (9-16); Carbon Dioxide 31 mmol/L (22-29); Chloride 103 mmol/L (96-108); Cholesterol 194 mg/dL (<200); Estimated Glomerular Filt Rate > 60; Glucose Random 92 mg/dL (60-115); HDL Cholesterol 57 mg/dL (>40); LDL Cholesterol Calculated 108 mg/dL (<100); Potassium 4.1 mmol/L (3.3-5.1); Sodium 140 mmol/L (135-145); Total Protein 7.4 g/dL (6.5-8.0); Triglycerides 148 mg/dL (<150)
[2023-12-15 14:01] LABS: Creatinine Urine 78.34 mg/dL; Microalbum/Creatinine Ratio Ur 10.2 ug/mg cr (<30)
== END 2023-12-15 11:18 | disposition home or self-care (01) ==
LOC: HO.HHCL 11:17
PROVIDERS: Visit Provider Internal Medicine Geriatric Medicine
DX: Z00.00 Encounter for general adult medical examination without abnormal findings (principal); I10 Essential (primary) hypertension
CPT/HCPCS: 36415; 80053; 80061; 82043; 82570; 85025

== ENCOUNTER 2024-03-15 13:22 | Outpatient (REF) | payer MEDICAID, SELFPAY | END 2024-03-15 13:23 | disposition home or self-care (01) | LOC: HO.HHCLNP 13:22 | PROVIDERS: Visit Provider Family Medicine | DX: J02.9 Acute pharyngitis, unspecified (principal) | CPT/HCPCS: 87070; 87147 ==

== ENCOUNTER 2024-03-18 10:58 | Emergency (ER) | payer MEDICAID, SELFPAY ==
--- NOTE | ~2024-03-18 | XR_ITS ---
EXAMINATION: XR CHEST CLINICAL INFORMATION: Cough, pneumonia COMPARISON: Chest x-ray on 02/26/2021 TECHNIQUE: Frontal view of the chest was obtained. FINDINGS: The cardiac silhouette is normal. There is mild diffuse bronchial wall thickening. There are no areas of consolidation. There are no pleural effusions or pneumothoraces. The bones and soft tissues are unremarkable for the patient's age. XR/XR chest 1V IMPRESSION: Bronchial wall thickening may be infectious and/or inflammatory in etiology.
[2024-03-18 11:07] VITALS: BP 143/76; PULSE 88; RESP 24; TEMP 37.3; O2SAT 95; BMI 35.3
--- NOTE | 2024-03-18 11:11 | ECG_ITS ---
Test Reason : SOB, cough Blood Pressure : / mmHG Vent. Rate : 085 BPM Atrial Rate : 085 BPM P-R Int : 162 ms QRS Dur : 078 ms QT Int : 368 ms P-R-T Axes : 053 072 066 degrees QTc Int : 437 ms Normal sinus rhythm Normal ECG When compared with ECG of 26-FEB-2021 18:09, Premature atrial complexes are no longer Present Referred By: Stanley Francis Electronically Signed By:GINA ARNOLD MD
--- NOTE | 2024-03-18 11:12 | ED_ITS ---
HPI - General Adult General Chief complaint: Upper Respiratory Symptoms Stated complaint: Cough/SOB Time Seen by Provider: 03/18/24 11:15 Source: patient and old records reviewed Mode of arrival: ambulatory Limitations: no limitations History of Present Illness ED Provider: AYSHA GAMA narrative: 63 yo female with PMH of HTN, HLD, asthma here with c/o 1 week productive cough, wheezing, body aches and headaches - went to urgent care on was told she had white spots on throat but states all swabs were negative she was discharged home with amoxicillin and tessalon but it is not helping her cough and she feels short of breath. She did use her nebulizer this AM which helped. No travel or sick contacts. MD complaint: URI symptoms Onset (ago): week(s) (1) Location: chest Radiation: non-radiation Severity: moderate Relieving factors: rest Exacerbating factors: movement Associated symptoms: cough and shortness of breath Treatments prior to arrival: other (nebulizer) Related Data Home Medications ?Medication ?Instructions ?Recorded ?Confirmed atorvastatin 20 mg tablet 20 mg PO DAILY 11/20/21 10/12/23 loratadine 10 mg tablet 10 mg PO DAILY 11/20/21 10/12/23 losartan 50 mg-hydrochlorothiazide 1 tab PO DAILY 11/20/21 10/12/23 12.5 mg tablet pantoprazole 40 mg tablet,delayed 40 mg PO DAILY 11/20/21 10/12/23 release albuterol sulfate 90 mcg/actuation 2 puff inhalation Q6H PRN 10/12/23 10/12/23 aerosol inhaler (Ventolin HFA) cholecalciferol (vitamin D3) 25 25 mcg PO DAILY 10/12/23 10/12/23 mcg (1,000 unit) capsule sodium chloride 0.65 % nasal spray 1 - 2 spray intranasal Q2-3H PRN 10/12/23 10/12/23 aerosol (Saline Nasal) congestion Previous Rx's ?Medication ?Instructions ?Recorded pyridoxine (vitamin B6) 100 mg 100 mg PO DAILY #90 tabs 10/12/23 tablet azithromycin 250 mg tablet See Rx Instructions PO .COMPLEX #6 03/18/24 tabs codeine 10 mg-guaifenesin 100 mg/5 5 ml PO Q6H PRN cough #60 mL 03/18/24 mL oral liquid fluticasone propionate 100 1 inh inhalation BID 2 weeks #60 ea 03/18/24 mcg/actuation blister powder for inhalation prednisone 20 mg tablet 40 mg (2 x 20 mg) PO DAILY 4 days 03/18/24 #8 tabs Allergies Allergy/AdvReac Type Severity Reaction Status Date / Time acetaminophen Allergy Unknown MAKES HER Verified 03/18/24 11:08 [From EXCEDRIN BACK & BODY] FEEL SICK aspirin Allergy Unknown MAKES HER Verified 03/18/24 11:08 [From EXCEDRIN BACK & BODY] FEEL SICK calcium carbonate Allergy Unknown MAKES HER Verified 03/18/24 11:08 [From EXCEDRIN BACK & BODY] FEEL SICK caffeine AdvReac Unknown feels dizzy Verified 03/18/24 11:08 [Excedrin Extra Strength] Review of Systems 2 Review of Systems: Constitutional : No Fever, No Chills ENT/Mouth : No Hoarseness, No sore throat, No Rhinorrhea Eyes: No Redness, No Discharge, No Vision Changes Cardiovascular : No Chest Pain, positive SOB, positive Dyspnea on Exertion, No Edema Respiratory : positive Cough, pos Sputum, positive Wheezing, Gastrointestinal : No Nausea, No Vomiting, No Diarrhea, No abdominal Pain Genitourinary : No Dysuria, No Hematuria Musculoskeletal : No joint pain, No Myalgias Skin : No rash Neuro : No Weakness, No Numbness, No Headache Psych : No anxiety, depression All other systems reviewed and are negative FORMERLY [facility], [facility] Past Medical History Attestation statement: The following information was validated with the patient. Medical History High cholesterol High blood pressure Asthma HTN (hypertension) Family History Family History (Updated 11/11/23 @ 15:49 by GREGORIA Jernigan) Father No problems noted. Mother No problems noted. Social History Social History Alcohol intake: never Patient Tobacco Use Status: Never used Tobacco Advance Directives: No Advance Directives Information Provided: No Current occupational status: retired Current occupation: right hand dominant Physical Exam ED Vital Signs: Vital Signs - 24 hr 03/18/24 11:07 03/18/24 11:57 03/18/24 11:59 Temperature 99.1 F Pulse Rate 88 89 81 Respiratory Rate 24 H 18 11 L Blood Pressure 143/76 H 145/81 H Pulse Oximetry 95 98 Oxygen Delivery Method Room Air Room Air BMI result Body Mass Index 35.3 Appearance: Alert. Oriented X3. No acute distress. Eyes: Pupils equal, round and reactive to light. ENT: Pharynx normal. No white patches or thrush noted Neck: Normal inspection. Neck supple. CVS: Normal heart rate and rhythm. Pulses normal. Respiratory: No respiratory distress. Breath sounds coarse and mild diffuse exp wheezes no distress and not labored. Abdomen: Soft and nontender. Skin: Skin warm and dry. Normal skin color. Normal skin turgor. Extremities: No lower extremity edema. No calf ttp Neuro: Oriented X 3. No motor deficit. No sensory deficit. Course Course Course Narrative: RME Bone by BRIGETTE Francis. 63 yold female presents to the ED coughing, SOB, bodyaches, fever, chills, coughing greeh phelghm since . lungs posirtive for mild wheezing. no legs swelling. labs, EKg, and chest xray. Reevaluation(s) Reevaluation #1: 7 days of symptoms out of window for paxlovid Medications Administered Discontinued Medications Generic Name Dose Route Start Last Admin Trade Name Freq PRN Reason Stop Dose Admin Albuterol Sulfate 2.5 mg/ 0 mg 03/18/24 11:53 03/18/24 11:56 Albuterol/Ipratropium 3 ml INHALE 03/18/24 11:54 1 dose ONCE ONE Administration Guaifenesin/Codeine Phosphate 10 ml 03/18/24 11:34 03/18/24 11:47 Guaifen/Codeine Sf 200/20/10ml 10 Ml Liquid PO 03/18/24 11:35 10 ml ONCE ONE Administration Prednisone 40 mg 03/18/24 11:34 03/18/24 11:47 Prednisone 20 Mg Tablet PO 03/18/24 11:35 40 mg ONCE ONE Administration Medical Decision Making Medical Decision Making MDM Narrative: 63 yo female with PMH of HTN, HLD, asthma here with c/o 1 week productive cough, wheezing not feeling well using nebs at home not on prednisone started on amoxicillin for white spots on throat but negative strep. She feels not better from it. At this time will obtain swab, basic labs, CXR for pneumonia - suspect more bronchitis - start on steroids, nebs, change from augmentin to zpak. Aniticipate DC home. Differential Diagnosis Differential Diagnoses: The differential diagnosis associated with the presentation includes URI, bronchitis Admission/Observation Consideration of admission/observation: Escalation of care including admission/observation considered feels better, no hypoxia - stable for outpatient management Lab Data MDM Lab Attestation statement: I reviewed the patient's lab results. 03/18/24 11:18 03/18/24 11:18 Labs: Lab Results 03/18/24 Range/Units 11:18 WBC 7.4 (4.8-10.8) X10*3/uL RBC 4.24 (4.20-5.50) X10*6/uL Hgb 11.5 L (12.0-16.0) g/dl Hct 35.8 L (37.0-47.0) % MCV 84.4 (80.0-98.0) fL MCH 27.1 (27.0-33.0) pg MCHC 32.1 (31.0-35.0) g/dl RDW 14.9 (11.0-16.0) % Plt Count 243 (160-400) X10*3/uL MPV 10.7 (9.4-12.3) fL Immature Gran % (Auto) 0.4 (0.0-0.4) % Neut % (Auto) 71.6 (45-73) % Lymph % (Auto) 18.4 L (20-40) % [place] % (Auto) 6.9 (2-11) % Eos % (Auto) 2.3 (0-4) % Baso % (Auto) 0.4 (0-2) % Lymph # (Auto) 1.4 (1.2-4.9) X10*3/uL [place] # (Auto) 0.5 (0.1-1.2) X10*3/uL Eos # (Auto) 0.2 (0.0-0.4) X10*3/uL Baso # (Auto) 0.0 (0.0-0.2) X10*3/uL Abs Immat Gran (auto) 0.03 (0.00-0.03) X10*3/uL Absolute Neuts (auto) 5.3 (2.0-8.3) x10*3/uL Absolute Nucleated RBC 0.000 (0.0-0.012) X10*3/uL Nucleated RBC % (auto) 0.0 (0.0-0.2) /100WBC Sodium 141 (135-145) mmol/L Potassium 3.8 (3.3-5.1) mmol/L Chloride 104 (96-108) mmol/L Carbon Dioxide 27 (22-29) mmol/L Anion Gap 14 (12-20) BUN 15 (9-16) mg/dL Creatinine 0.84 (0.5-1.4) mg/dL Estim Creat Clear Calc 66.8 Estimated GFR > 60 Random Glucose 91 (60-115) mg/dL Calcium 9.7 (8.4-10.2) mg/dL Total Bilirubin 0.6 (0.0-1.0) mg/dL AST 14 (5-31) U/L ALT 19 (0-31) U/L Alkaline Phosphatase 113 (39-117) U/L Troponin I High Sens < 2.7 (<3.5-17.0) ng/L B-Natriuretic Peptide 46 (<100) pg/mL Total Protein 7.1 (6.5-8.0) g/dL Albumin 3.7 (3.5-5.0) g/dL Influenza Type A (PCR) NEGATIVE (Negative) Influenza Type B (PCR) NEGATIVE (Negative) RSV RNA Qual (PCR) NEGATIVE (Negative) SARS-CoV-2 RNA (RT-PCR) POSITIVE A (Negative) S. pyogenes GrpA LIZ Negative (Negative) Independent Interpretation I performed an independent interpretation of an: EKG and Plain X-Ray (bronchitis - no focal consolidation) Interpretation: Rate: 85 Rhythm: NSR [place]: normal Normal P waves. Normal LA NENA. Normal QRS complex. ST T wave : normal no HARVEY qTC: 437 prior studies: no acute ischemia The study has been interpreted contemporaneously by me. . Radiology Impression Discussion of test interpretation with radiology: I have reviewed the radiologist's reading. External Record Review External record reviewed: Inpatient record Prescription Management I considered prescription management with: Antibiotic and Other Discharge Plan Discharge Clinical Impression: Bronchitis, COVID-19 Patient Disposition: Home, Self-Care Instructions: Acute Bronchitis (ED), COVID-19 (Coronavirus Disease 2019) (ED) Additional Instructions: STOP AMOXICILLIN CONTINUE TO TAKE INHALERS AND NEBS new inhaler for 2 weeks return for any worsening symptoms or concerns such as worsening breathing Prescriptions: New azithromycin 250 mg tablet See Rx Instructions .ROUTE .COMPLEX Qty: 6 0RF Rx Instructions: For 250 mg dose pack: take 500 mg today (day 1), then 250 mg for 4 days (days 2-5) prednisone 20 mg tablet 40 mg PO DAILY 4 Days Qty: 8 0RF codeine-guaifenesin 10-100 mg/5 mL liquid 5 ml PO Q6H PRN (Reason: cough) Qty: 60 0RF fluticasone propionate 100 mcg/actuation blister with device 1 inh inhalation BID 14 Days Qty: 60 0RF Rx Instructions: rinse mouth after No Action loratadine 10 mg tablet 10 mg PO DAILY atorvastatin 20 mg tablet 20 mg PO DAILY pantoprazole 40 mg tablet,delayed release (DR/EC) 40 mg PO DAILY losartan-hydrochlorothiazide 50-12.5 mg tablet 1 tab PO DAILY Saline Nasal 0.65 % aerosol,spray 1 - 2 spray intranasal Q2-3H PRN (Reason: congestion) albuterol sulfate [Ventolin HFA] 90 mcg/actuation HFA aerosol inhaler 2 puff inhalation Q6H PRN cholecalciferol (vitamin D3) 25 mcg (1,000 unit) capsule 25 mcg PO DAILY pyridoxine (vitamin B6) 100 mg tablet 100 mg PO DAILY Qty: 90 3RF Print Language: Estonian
[2024-03-18 11:24] LABS: MANUAL DIFF FLAG NO
[2024-03-18 11:25] LABS: Basophils Percent Auto 0.4 % (0-2); Eosinophils Absolute Auto 0.2 X10*3/uL (0.0-0.4); Eosinophils Percent Auto 2.3 % (0-4); Hematocrit 35.8 % (37.0-47.0); Hemoglobin 11.5 g/dl (12.0-16.0); Imm Gran Abs Auto 0.03 X10*3/uL (0.00-0.03); Imm Gran Pct Auto 0.4 % (0.0-0.4); Lymphocytes Absolute Auto 1.4 X10*3/uL (1.2-4.9); Lymphocytes Percent Auto 18.4 % (20-40); Mean Corpuscular HGB Conc 32.1 g/dl (31.0-35.0); Mean Corpuscular Hemoglobin 27.1 pg (27.0-33.0); Mean Corpuscular Volume 84.4 fL (80.0-98.0); Mean Platelet Volume 10.7 fL (9.4-12.3); Monocytes Absolute Auto 0.5 X10*3/uL (0.1-1.2); Monocytes Percent Auto 6.9 % (2-11); Neutrophils Absolute Auto 5.3 x10*3/uL (2.0-8.3); Neutrophils Percent Auto 71.6 % (45-73); Platelet Count 243 X10*3/uL (160-400); Red Blood Count 4.24 X10*6/uL (4.20-5.50); Red Cell Distribution Width 14.9 % (11.0-16.0); White Blood Count 7.4 X10*3/uL (4.8-10.8)
[2024-03-18 11:37] LABS: IDNOW Serial# 08D9AD1C
[2024-03-18 11:38] LABS: Strep A Nucleic Acid Negative (Negative)
[2024-03-18] MEDS: guaiFEN/Codeine SF 200/20/10ML 10 ML LIQUID PO (11:47)
[2024-03-18] MEDS: predniSONE 20 MG TABLET 40 MG PO (11:47)
[2024-03-18 11:50] LABS: Alanine Aminotransferase 19 U/L (0-31); Albumin Level 3.7 g/dL (3.5-5.0); Alkaline Phosphatase 113 U/L (39-117); Anion Gap 14 (12-20); Aspartate Amino Transferase 14 U/L (5-31); Bilirubin Total 0.6 mg/dL (0.0-1.0); Blood Urea Nitrogen 15 mg/dL (9-16); Calcium 9.7 mg/dL (8.4-10.2); Carbon Dioxide 27 mmol/L (22-29); Chloride 104 mmol/L (96-108); Creatinine Clr Calc Pharmacy 66.8; Estimated Glomerular Filt Rate > 60; Glucose Random 91 mg/dL (60-115); Potassium 3.8 mmol/L (3.3-5.1); Sodium 141 mmol/L (135-145); Total Protein 7.1 g/dL (6.5-8.0)
[2024-03-18 11:53] LABS: B Type Natriuretic Peptide 46 pg/mL (<100)
[2024-03-18] MEDS: Albuterol Sulfate 2.5 MG, Albuterol/Iprat 2.5/0.5MG 3 ML 3 ML INHALE (11:56)
[2024-03-18 11:57] VITALS: PULSE 89; RESP 18; O2SAT 95
[2024-03-18 11:59] VITALS: BP 145/81; PULSE 81; RESP 11; O2SAT 98
[2024-03-18 12:00] LABS: Troponin-I High Sensitivity < 2.7 ng/L (<3.5-17.0)
[2024-03-18 12:04] LABS: Influenza A PCR NEGATIVE (Negative); Influenza B PCR NEGATIVE (Negative); Resp Syncy Virus RNA Qual PCR NEGATIVE (Negative); SARS COV2 PCR INHOUSE POSITIVE (Negative)
--- NOTE | 2024-03-18 12:06 | MHC.EDTECH ---
pt vitals signs taken, pt in the middle of breathing treatment, call mendez within reach.
[2024-03-18 12:43] VITALS: BP 145/81; PULSE 81; RESP 11; TEMP 36.9; O2SAT 98
== END 2024-03-18 12:44 | disposition home or self-care (01) ==
PROVIDERS: Physician Assistant; Emergency Provider Emergency Medicine; PCP Internal Medicine Geriatric Medicine
DX: U07.1 COVID-19 (principal); J40 Bronchitis, not specified as acute or chronic; R05.9 Cough, unspecified; R06.02 Shortness of breath; M79.10 Myalgia, unspecified site; Z79.899 Other long term (current) drug therapy
CPT/HCPCS: 0241U; 36415; 71045; 80053; 83880; 84484; 85025; 87651; 93005; 94640; 99284; 99285

== ENCOUNTER → 2024-03-18 11:11 | Outpatient (BNV) | payer MEDICAID, SELFPAY | PROVIDERS: Emergency Provider Emergency Medicine; PCP Internal Medicine Geriatric Medicine; Visit Provider Internal Medicine Cardiovascular Disease | DX: R06.02 Shortness of breath (principal) | CPT/HCPCS: 93010 ==

== ENCOUNTER 2024-05-30 12:56 | Outpatient (AMB) | payer MEDICAID, SELFPAY ==
[2024-05-30 13:16] VITALS: BP 136/64; PULSE 74; BMI 35.6
--- NOTE | 2024-05-30 13:16 | MHC.OFFVIS ---
Vital Signs 05/30/24 13:16 Height 5 ft 1 in Weight 188 lb 4.396 oz BMI 35.6 BP 136/64 Blood Pressure Location Lt brachial Position Sitting Pulse 74 Intake Visit Reasons: COLONSCOPY SCREENING Intake Note: New patient in office today for colonoscopy screening. CC: Patient reports constipation and abdominal pain. She states that she takes Prune lax once a week and is able to have BMs. She also takes Pantoprazole for GERD. Denies other GI symptoms. Clerical Adjudicator Required: Yes Accompanied by: Self / Same As Patient Allergies acetaminophen [From Excedrin Back and Body] Allergy (Verified 05/30/24 13:26) Unknown aspirin [From Excedrin Back and Body] Allergy (Verified 05/30/24 13:26) Unknown calcium carbonate [From Excedrin Back and Body] Allergy (Verified 05/30/24 13:26) Unknown HPI HPI COLONSCOPY SCREENING: Details: 63-year-old female here for preprocedural meeting to discuss a screening colonoscopy. She is referred by [facility]. PMX Asthma Allergic rhinitis Hypertension High cholesterol Obesity-BMI of 37 Hypertensive retinopathy Venous insufficiency Lumbar degenerative disc disease with spondylolisthesis Nephrolithiasis * SURGICAL HISTORY Back surgery lumbar fusion L4-L5 EGD and colonoscopy Cataract surgery Tubal ligation * ALLERGIES KRYSTA inhibitors Tylenol - pt denies Aspirin - pt denies Caffeine - pt denies * [facility] Laboratory Tests 03/18/24 11:18 WBC 7.4 Hgb 11.5 L Hct 35.8 L MCV 84.4 MCH 27.1 Plt Count 243 Estimated GFR > 60 Total Bilirubin 0.6 AST 14 ALT 19 Alkaline Phosphatase 113 TODAY'S VISIT [place] #Mus[place] She had prior colonoscopy at [facility], but was many, many years ago. I can not find it in the [facility] records. She says there were no polyps. She denies many of the listed allergies, specifically she says I'm not allergic to caffeine, I drink coffee. Her asthma is well controlled, no cardiac problems There are no prior problems with anesthesia or sedation. NO ID problems. There is no known FHX crc or polyps, her brother of throat cancer - smoker. [facility] Medical History History of renal calculi Left flank discomfort COVID-19 High cholesterol High blood pressure Asthma HTN (hypertension) Surgical History History of back surgery History of esophagogastroduodenoscopy (EGD) H/O colonoscopy Family History Father No problems noted. Mother No problems noted. Social History Alcohol intake: never Patient Tobacco Use Status: Never used Tobacco Current occupational status: retired Current occupation: right hand dominant Review of Systems Const Denies fatigue, Denies fever(s), Denies night sweats, Denies poor appetite and Denies weight loss ENT Reports Normal hearing present, Denies dental pain, Denies dysphagia, Denies hearing loss, Denies mouth pain, Denies odynophagia, Denies throat swelling, Denies tongue swelling and Reports other (Dentition adequate) Card Reports no additional complaints Resp Reports no additional complaints GI Details: Denies abdominal pain, Denies melena, Denies bloating, Denies hematochezia, Denies constipation, Denies GI cramping, Denies dysphagia, Denies excessive flatus, Denies early satiety, Denies heartburn, Denies diarrhea, Denies nausea, Denies odynophagia, Denies vomiting and Denies hematemesis Skin/Breast Denies pruritus, Denies lesions, Denies rash and Denies jaundice Neuro Reports Normal hearing present and Denies Abnormal speech present Endo Denies fatigue Aller/Immun Denies throat swelling and Denies tongue swelling Physical Exam Vital Signs: Last Vital Signs Pulse 74 05/30/24 13:16 BP 136/64 05/30/24 13:16 BMI result Body Mass Index 35.6 Const General: cooperative, no acute distress, well developed and well groomed Nutritional Appearance: well nourished and obese Orientation/consciousness: oriented to person, oriented to place and oriented to time Limitations: language barrier HEENT Head: Yes normocephalic and Yes atraumatic Eyes General: appearance normal, both eyes and all related structures Pupils: Equal, round and reactive pupils present Neck Neck: Yes normal visual inspection and Yes no lymphadenopathy Thyroid: Thyroid normal Resp Effort & Inspection: normal respiratory effort and able to speak in complete sentences Auscultation: clear to auscultation bilaterally Cardio Rate: regular rate Rhythm: regular rhythm Heart sounds: Normal, physiologic split S2 sound present Peripheral pulses: radial pulses present and posterior tibial pulses present GI Inspection: No distended, Yes Abdominal panniculus present and Yes obesity Palpation (GI): Soft to palpation, nontender, no guarding, not rigid and No hepatosplenomegaly present Percussion: Yes normal to percussion Auscultation: normal bowel sounds Rectal Exam - Female: deferred Skin General skin exam: no rashes or lesions noted, turgor normal, skin not dry, no jaundice, No spider nevi and no striae Rashes: no rashes Nails: normal Neuro General: oriented to person, oriented to place and oriented to time Cranial nerves: Yes Equal, round and reactive pupils present and Yes Normal hearing present Speech: No Abnormal speech present Extrem General: Yes normal to inspection, No clubbing, No cyanosis and Yes edema (Mild nonpitting) Psych Appearance: grossly normal and well kempt Mental Status: mental status grossly normal Speech and movement: Normal speech and movement present Affect: normal affect Attitude: cooperative Thought process: Normal thought process present and not confabulating Thought content: Normal thought content present Insight: Good insight present (Psych) Judgement: Good judgement present (Psych) Assessment & Plan Assessment & Plan (1) Pre-op examination: Code(s): Z01.818 - Encounter for other preprocedural examination Category: Medical Plan [place] #Musa She had prior colonoscopy at [facility], but was many, many years ago. I can not find it in the [facility] records. She says there were no polyps. She denies many of the listed allergies, specifically she says I'm not allergic to caffeine, I drink coffee. Her asthma is well controlled, no cardiac problems There are no prior problems with anesthesia or sedation. NO ID problems. There is no known FHX crc or polyps, her brother of throat cancer - smoker. Orders: Orders Colonoscopy - GI Use Only Today Z01.818 - Encounter for other preprocedural examination Medications: New peg 3350-electrolytes 236-22.74-6.74 -5.86 gram (Golytely) until fecal effluent is clear; do not exceed a total volume of 2,000 mL 240 mL PO Q10M 4,000 mL 0RF 1 day Z12.11 - Encounter for screening for malignant neoplasm of colon bisacodyl (Dulcolax (bisacodyl)) 10 mg (2 x 5 mg) PO BEDTIME 4 tabs 0RF 2 days Coding Level of Care Code New Pt Level 3 (46377) Diagnoses Pre-op examination Z01.818
== END 2024-05-30 13:59 | disposition home or self-care (01) ==
PROVIDERS: PCP Internal Medicine Geriatric Medicine; Visit Provider Nurse Practitioner
DX: Z01.818 Encounter for other preprocedural examination (principal)
CPT/HCPCS: 99203

== ENCOUNTER → 2024-05-30 12:56 | Outpatient (BNVA) | payer MEDICAID, SELFPAY | PROVIDERS: PCP Internal Medicine Geriatric Medicine; Visit Provider Nurse Practitioner | DX: Z01.818 Encounter for other preprocedural examination (principal) | CPT/HCPCS: 99212 ==

== ENCOUNTER 2024-06-04 11:18 | Emergency (ER) | payer MEDICAID, SELFPAY ==
--- NOTE | ~2024-06-04 | US_ITS ---
EXAMINATION: US TRIPLEX LOWER EXTREMITY, RIGHT CLINICAL INFORMATION: Edema and pain in right leg COMPARISON: None available. TECHNIQUE: Color-flow triplex imaging with spectral analysis and compression Doppler were performed on the right lower extremity. FINDINGS: Respiratory variation, normal compression and augmented flow are noted throughout the right lower extremity. The visualized common femoral vein, superficial femoral vein, profunda femoral vein, popliteal vein and midcalf peroneal and posterior tibial venous segments show no evidence of deep venous thrombosis. There is no Clarke's cyst. US/US venous duplex LE RT IMPRESSION: No evidence of deep venous thrombosis involving the right lower extremity. Electronically signed by: Jazmin Ochoa MD 06/04/2024 12:42 PM EDT
[2024-06-04 11:36] VITALS: BP 139/63; PULSE 86; RESP 18; TEMP 36.3; O2SAT 94; BMI 35.1
--- NOTE | 2024-06-04 11:40 | ED_ITS ---
HPI - General Adult General Chief complaint: Extremity Problem Stated complaint: R leg pain 4 days Time Seen by Provider: 06/04/24 16:37 Source: patient and translator and interpreter Mode of arrival: ambulatory Limitations: no limitations History of Present Illness ED Provider: Zara Prieto PA-C HPI narrative: 63 yo F with a past medical history hypertension, hyperlipidemia, obesity, nephrolithiasis, hypertensive retinopathy, venous insufficiency presents to the ED c/o atraumatic right leg pain x4 days. Patient states that pain has been progressively worsening, she is able to bear weight but her pain increases while walking. She has tried lidocaine patch, icy hot, home remedies without improvement in pain. Denies chest pain, shortness of breath, palpitations, cough, numbness and tingling, fever, chills, nausea, vomiting. No similar symptoms in past no further complaints this time. Onset (ago): day(s) Related Data Home Medications ?Medication ?Instructions ?Recorded ?Confirmed atorvastatin 20 mg tablet 20 mg PO DAILY 11/20/21 10/12/23 losartan 50 mg-hydrochlorothiazide 1 tab PO DAILY 11/20/21 10/12/23 12.5 mg tablet pantoprazole 40 mg tablet,delayed 40 mg PO DAILY 11/20/21 10/12/23 release albuterol sulfate 90 mcg/actuation 2 puff inhalation Q6H PRN 10/12/23 10/12/23 aerosol inhaler (Ventolin HFA) cholecalciferol (vitamin D3) 25 25 mcg PO DAILY 10/12/23 10/12/23 mcg (1,000 unit) capsule sodium chloride 0.65 % nasal spray 1 - 2 spray intranasal Q2-3H PRN 10/12/23 0 10/12/23 aerosol (Saline Nasal) congestion cetirizine 10 mg tablet 10 mg PO QAM 05/30/24 fluticasone furoate 100 inhalation 05/30/24 mcg/actuation blister powder for inhalation (Arnuity Ellipta) Previous Rx's ?Medication ?Instructions ?Recorded pyridoxine (vitamin B6) 100 mg 100 mg PO DAILY #90 tabs 10/12/23 tablet codeine 10 mg-guaifenesin 100 mg/5 5 ml PO Q6H PRN cough #60 mL 03/18/24 mL oral liquid fluticasone propionate 100 1 inh inhalation BID 2 weeks #60 ea 03/18/24 mcg/actuation blister powder for inhalation bisacodyl 5 mg tablet,delayed 10 mg (2 x 5 mg) PO BEDTIME 2 days 05/30/24 release (Dulcolax (bisacodyl)) #4 tabs peg 3350-electrolytes 236 240 ml PO Q10M 1 day #4,000 mL 05/30/24 gram-22.74 gram-6.74 gram-5.86 gram solution (Golytely) acetaminophen 500 mg tablet 500 mg PO Q6H PRN fever or pain 06/04/24 (Tylenol Extra Strength) #14 tabs naproxen 500 mg tablet 500 mg PO BID PRN pain 10 days #20 06/04/24 tabs Allergies Allergy/AdvReac Type Severity Reaction Status Date / Time acetaminophen Allergy Unknown Verified 06/04/24 11:40 [From Excedrin Back and Body] aspirin Allergy Unknown Verified 06/04/24 11:40 [From Excedrin Back and Body] calcium carbonate Allergy Unknown Verified 06/04/24 11:40 [From Excedrin Back and Body] Review of Systems Review of Systems: Yes all other systems are reviewed and are negative Constitutional: Constitutional: Reports as per [facility] Past Medical History Attestation statement: The following information was validated with the patient. Source: old records reviewed Medical History History of renal calculi Left flank discomfort COVID-19 High cholesterol High blood pressure Asthma HTN (hypertension) Surgical History History of back surgery History of esophagogastroduodenoscopy (EGD) H/O colonoscopy Family History Family History Father No problems noted. Mother No problems noted. Social History Social History Alcohol intake: never Patient Tobacco Use Status: Never used Tobacco Advance Directives: No Advance Directives Information Provided: No Current occupational status: retired Current occupation: right hand dominant Physical Exam ED Vital Signs: Vital Signs - 24 hr 06/04/24 11:36 06/04/24 17:33 Temperature 97.4 F 97.4 F Pulse Rate 86 86 Respiratory Rate 18 18 Blood Pressure 139/63 139/63 Pulse Oximetry 94 94 Oxygen Delivery Method Room Air Room Air BMI result Body Mass Index 35.1 Const General: cooperative, healthy appearing and no acute distress Orientation/consciousness: patient oriented x3 Limitations: no limitations HENMT Head: Yes normal to inspection and Yes atraumatic Ears: hearing grossly normal bilaterally General nose exam: Normal external nose present Face and sinus: Yes normal facial exam Eyes General: appearance normal, both eyes and all related structures EOM: EOMs intact bilaterally Neck Neck: Yes normal visual inspection and Yes no meningeal signs Resp Effort & Inspection: normal respiratory effort and no respiratory distress Cardio Rate: regular rate Skin Rashes: no rashes Wounds: no wounds Neuro General: patient oriented x3, tone normal and no meningeal signs Cranial nerves: Yes CN's II-XII intact bilaterally Gait exam (Neuro): Normal gait present Extrem Other: RLE w/+mild swelling to medial aspect of knee, + TTP. Limited range of motion to full knee flexion 2/2 pain. No ecchymosis, erythema, visual abnormality, crepitus, warmth. Neurovascularly intact. No calf ttp. Negative Dewey's sign General: Yes normal to inspection Course Course Course Narrative: RME, this is a rapid medical exam performed by Liban Rose please refer to primary provider for complete H&P- 63-year-old female with past medical history significant for hypertension, obesity presents for evaluation of atraumatic right leg pain. The pain is 2 her right lower leg for the last 4 days. She has no risk factors for DVT. Plan for ultrasound of right lower extremity. There was no erythema or significant edema to suggest infectious process. US venous duplex LE RT IMPRESSION: No evidence of deep venous thrombosis involving the right lower extremity. > Antony wrap applied. Recommended close Orthopedics/PCP follow-up Results discussed with patient including worrisome signs and symptoms and strict return precautions, and when to return to the emergency department. They verbalized understanding and feel safe for discharge at this time. Medications Administered Discontinued Medications Generic Name Dose Route Start Last Admin Trade Name Freq PRN Reason Stop Dose Admin Ketorolac Tromethamine 30 mg 06/04/24 16:52 06/04/24 17:04 Ketorolac Tromethamine 30 Mg/Ml Vial IM 06/04/24 16:53 30 mg ONCE ONE Administration Medical Decision Making Medical Decision Making [facility] Narrative: 63 yo F with a past medical history hypertension, hyperlipidemia, obesity, nephrolithiasis, hypertensive retinopathy, venous insufficiency presents to the ED c/o atraumatic right leg pain x4 days. On exam, vital signs stable, NAD, nontoxic appearing, right knee with mild swelling and tenderness to medial aspect. Slight limited full flexion secondary to pain. Negative Homans sign. No pitting edema. Concern for arthralgia vs DVT. No evidence of septic joint/arthritis. Compartments soft. Unlikely septic arthritis, fracture, abscess. Plan for venous duplex ultrasound. Please refer to course for remaining medical decision making, discussions with family/patient's and interpretation of labs/imaging. Differential Diagnosis Differential Diagnoses: The differential diagnosis associated with the presentation includes As above Independent Interpretation I performed an independent interpretation of an: Ultrasound Radiology Impression Discussion of test interpretation with radiology: I have reviewed the ra diologist's reading. External Record Review External record reviewed: Inpatient record, Office record, Outpatient record, Prior outpatient labs, Prior outpatient radiology, Primary care record and Outside ED record Tests considered The following testing was considered but not selected: As above Prescription Management I considered prescription management with: Pain Medication Discharge Plan Discharge Clinical Impression: Arthralgia Patient Disposition: Home, Self-Care Instructions: Arthralgia (ED) Additional Instructions: Your ultrasound was negative for blood clot Naproxen as an anti-inflammatory/pain medication, please take with food In addition take Tylenol Wear Antony wrap for comfort and stability Please follow-up with your doctor as well as Orthopedics as needed If symptoms persist or worsen return to the ED Prescriptions: New acetaminophen [Tylenol Extra Strength] 500 mg tablet 500 mg PO Q6H PRN (Reason: fever or pain) Qty: 14 0RF naproxen 500 mg tablet 500 mg PO BID PRN (Reason: pain) 10 Days Qty: 20 0RF No Action codeine-guaifenesin 10-100 mg/5 mL liquid 5 ml PO Q6H PRN (Reason: cough) Qty: 60 0RF fluticasone propionate 100 mcg/actuation blister with device 1 inh inhalation BID 14 Days Qty: 60 0RF Rx Instructions: rinse mouth after atorvastatin 20 mg tablet 20 mg PO DAILY pantoprazole 40 mg tablet,delayed release (DR/EC) 40 mg PO DAILY losartan-hydrochlorothiazide 50-12.5 mg tablet 1 tab PO DAILY peg 3350-electrolytes [Golytely] 236-22.74-6.74 -5.86 gram recon soln 240 ml PO Q10M 1 Days Qty: 4000 0RF Rx Instructions: until fecal effluent is clear; do not exceed a total volume of 2,000 mL bisacodyl [Dulcolax (bisacodyl)] 5 mg tablet,delayed release (DR/EC) 10 mg PO BEDTIME 2 Days Qty: 4 0RF cetirizine 10 mg tablet 10 mg PO QAM Arnuity Ellipta 100 mcg/actuation blister with device inhalation Saline Nasal 0.65 % aerosol,spray 1 - 2 spray intranasal Q2-3H PRN (Reason: congestion) albuterol sulfate [Ventolin HFA] 90 mcg/actuation HFA aerosol inhaler 2 puff inhalation Q6H PRN cholecalciferol (vitamin D3) 25 mcg (1,000 unit) capsule 25 mcg PO DAILY pyridoxine (vitamin B6) 100 mg tablet 100 mg PO DAILY Qty: 90 3RF Referrals: [facility] [facility] Surgeons [Provider Group] Name,MD Best [Primary Care Provider] - Interventions: ED Discharge Assessment Last Done: 06/04/24 17:33 Discharge Date/Time: 06/04/24 17:33 Print Language: Filipino
[2024-06-04] MEDS: Ketorolac Tromethamine 30 MG/ML VIAL IM (17:04)
--- NOTE | 2024-06-04 17:04 | PC.NURSE ---
PT states she does not have an allergy to Tylenol and is unaware on why it's in her chart, pt states she takes Tylenol at home and has no side effects from it.
[2024-06-04 17:33] VITALS: BP 139/63; PULSE 86; RESP 18; TEMP 36.3; O2SAT 94
== END 2024-06-04 17:33 | disposition home or self-care (01) ==
PROVIDERS: Emergency Provider Emergency Medicine; PCP Internal Medicine Geriatric Medicine
DX: M79.604 Pain in right leg (principal); I10 Essential (primary) hypertension; E78.5 Hyperlipidemia, unspecified
CPT/HCPCS: 93971; 96372; 99283; 99284; J1885

== ENCOUNTER 2024-06-10 10:44 | Emergency (ER) | payer MEDICAID, SELFPAY ==
--- NOTE | ~2024-06-10 | XR_ITS ---
EXAMINATION: XR KNEE, RIGHT CLINICAL INFORMATION: Pain. Difficulty emulating. COMPARISON: 11/01/2019 TECHNIQUE: Four views of the right knee. FINDINGS: Small joint effusion. Moderate progressive degenerative disease predominating in the patellofemoral joint. Diffuse demineralization. Diffuse soft tissue swelling of the right lower extremity. Vascular calcifications. No acute fracture. XR/XR knee RT 4V IMPRESSION: 1. Progressive degenerative disease predominating in the patellofemoral joint. 2. Small joint effusion. 3. Diffuse soft tissue edema of the right lower extremity with atherosclerotic peripheral vascular disease. Electronically signed by: Oliver Shin MD 06/10/2024 11:33 AM EDT
[2024-06-10 10:51] VITALS: BP 138/76; PULSE 86; RESP 18; TEMP 36.4; O2SAT 96; BMI 37.9
[2024-06-10] MEDS: predniSONE 20 MG TABLET 60 MG PO (12:24)
[2024-06-10] MEDS: Ketorolac Tromethamine 30 MG/ML VIAL IM (12:25)
--- NOTE | 2024-06-10 12:35 | ED_ITS ---
HPI - General Adult General Chief complaint: Extremity Problem Stated complaint: R knee pain Time Seen by Provider: 06/10/24 11:41 Source: patient Mode of arrival: ambulatory Limitations: no limitations History of Present Illness ED Provider: Stanley Ramirez [facility] narrative: 63 female history of hypertension, venous insufficiency, kidney stones, arthritis presents to the ED right knee pain for 1 week without any trauma. Patient states able to bear weight. Patient denies any chest pain or shortness of breath. Patient denies any redness, hotness, stiffness. Patient denies any calf pain, chest pain, shortness of breath, recent long travel, recent surgery, coughing up blood, or chest pain on inspiration. Related Data Home Medications ?Medication ?Instructions ?Recorded ?Confirmed atorvastatin 20 mg tablet 20 mg PO DAILY 11/20/21 10/12/23 losartan 50 mg-hydrochlorothiazide 1 tab PO DAILY 11/20/21 10/12/23 12.5 mg tablet pantoprazole 40 mg tablet,delayed 40 mg PO DAILY 11/20/21 10/12/23 release albuterol sulfate 90 mcg/actuation 2 puff inhalation Q6H PRN 10/12/23 10/12/23 aerosol inhaler (Ventolin HFA) cholecalciferol (vitamin D3) 25 25 mcg PO DAILY 10/12/23 10/12/23 mcg (1,000 unit) capsule sodium chloride 0.65 % nasal spray 1 - 2 spray intranasal Q2-3H PRN 10/12/23 10/12/23 aerosol (Saline Nasal) congestion cetirizine 10 mg tablet 10 mg PO QAM 05/30/24 fluticasone furoate 100 inhalation 05/30/24 mcg/actuation blister powder for inhalation (Arnuity Ellipta) Previous Rx's ?Medication ?Instructions ?Recorded pyridoxine (vitamin B6) 100 mg 100 mg PO DAILY #90 tabs 10/12/23 tablet codeine 10 mg-guaifenesin 100 mg/5 5 ml PO Q6H PRN cough #60 mL 03/18/24 mL oral liquid fluticasone propionate 100 1 inh inhalation BID 2 weeks #60 ea 03/18/24 mcg/actuation blister powder for inhalation bisacodyl 5 mg tablet,delayed 10 mg (2 x 5 mg) PO BEDTIME 2 days 05/30/24 release (Dulcolax (bisacodyl)) #4 tabs peg 3350-electrolytes 236 240 ml PO Q10M 1 day #4,000 mL 05/30/24 gram-22.74 gram-6.74 gram-5.86 gram solution (Golytely) acetaminophen 500 mg tablet 500 mg PO Q6H PRN fever or pain 06/04/24 (Tylenol Extra Strength) #14 tabs naproxen 500 mg tablet 500 mg PO BID PRN pain 10 days #20 06/04/24 tabs ketorolac 10 mg tablet 10 mg PO Q6H PRN pain 5 days #20 06/10/24 tabs prednisone 20 mg tablet 40 mg (2 x 20 mg) PO DAILY 5 days 06/10/24 #10 tabs Allergies Allergy/AdvReac Type Severity Reaction Status Date / Time acetaminophen Allergy Unknown Verified 06/10/24 10:53 [From Excedrin Back and Body] aspirin Allergy Unknown Verified 06/10/24 10:53 [From Excedrin Back and Body] calcium carbonate Allergy Unknown Verified 06/10/24 10:53 [From Excedrin Back and Body] Review of Systems 2 Review of Systems: Right knee pain Yes all other systems are reviewed and are negative [facility] Past Medical History Medical History History of renal calculi Left flank discomfort COVID-19 High cholesterol High blood pressure Asthma HTN (hypertension) Surgical History History of back surgery History of esophagogastroduodenoscopy (EGD) H/O colonoscopy Family History Family History Father No problems noted. Mother No problems noted. Social History Social History Alcohol intake: never Patient Tobacco Use Status: Never used Tobacco Advance Directives: No Advance Directives Information Provided: Yes Current occupational status: retired Current occupation: right hand dominant Physical Exam ED Vital Signs: Vital Signs - 24 hr 06/10/24 10:51 06/10/24 13:28 06/10/24 13:30 Temperature 97.6 F 98.6 F 98.6 F Pulse Rate 86 80 80 Respiratory Rate 18 20 20 Blood Pressure 138/76 146/86 H 146/86 H Pulse Oximetry 96 98 98 Oxygen Delivery Method Room Air Room Air Room Air BMI result Body Mass Index 37.9 Const General: cooperative, healthy appearing, comfortable, no acute distress, well developed, alert, awake and Physically active [facility] Head: Yes normal to inspection, Yes No palpable skull fracture present, Yes normocephalic, Yes atraumatic and No abrasion Eyes General: appearance normal, both eyes and all related structures Neck Neck: Yes normal visual inspection, Yes full ROM, Yes no lymphadenopathy, Yes no meningeal signs, Yes trachea midline, Yes supple, No anterior neck swelling and No tender Chest Chest palpation & inspection: normal inspection of the chest and normal palpation of entire chest wall Resp Effort & Inspection: normal respiratory effort and able to speak in complete sentences Auscultation: clear to auscultation bilaterally Cardio Jugular venous distension: no JVD Heart sounds: S1 normal heart sound present and S2 normal heart sound present GI Inspection: Yes normal to inspection Palpation (GI): Soft to palpation, not firm, nontender, no guarding and not rigid General: No CVA tenderness and Yes no CVA tenderness Back/Spine/Pelvis Back: no CVA tenderness, No CVA tenderness and No back tenderness Skin General skin exam: no rashes or lesions noted, elasticity normal and turgor normal Neuro General: gait normal, tone normal, moves all extremities, Normal light touch and pain sensation, no meningeal signs, no focal motor deficits, CN's II-XI intact bilaterally and normal sensation to monofilament Extrem General: Yes normal to inspection and Yes full ROM Knee images: 2 1. Positive for tenderness on palpation. Negative for swelling, fluctuance, ecchymosis, hotness, coldness, redness, or deformity. Complete range of motion of knee. Rest of extremity normal. Motor/neuro/vascular exam intact. Negative for calf pain or leg swelling. 2. Positive for tenderness on palpation. Negative for swelling, fluctuance, ecchymosis, hotness, coldness, redness, or deformity. Complete range of motion of knee. Rest of extremity normal. Motor/neuro/vascular exam intact. Negative for calf pain or leg swelling. Psych Appearance: grossly normal, well kempt and not disheveled Medications Administered Discontinued Medications Generic Name Dose Route Start Last Admin Trade Name Freq PRN Reason Stop Dose Admin Ketorolac Tromethamine 30 mg 06/10/24 12:07 06/10/24 12:25 Ketorolac Tromethamine 30 Mg/Ml Vial IM 06/10/24 12:08 30 mg ONCE ONE Administration Prednisone 60 mg 06/10/24 12:07 06/10/24 12:24 Prednisone 20 Mg Tablet PO 06/10/24 12:08 60 mg ONCE ONE Administration Medical Decision Making Medical Decision Making MDM Narrative: 63-year-old female with right knee pain history of arthritis presents to ED for right knee pain without any trauma. X-ray shows arthritis with small joint effusion. Presently no indication for arthrocentesis. Patient will be discharged informed to follow up with the PCP and primary care provider. Patient explained worrisome signs informed to return to ED immediately. not suspecting septic joint, gout, DVT, arterial occlusion, comparment syndrome, fracture, or disclocation. Patient explained worrisome signs and informed to return to the ED immeidately. Differential Diagnosis Differential Diagnoses: The differential diagnosis associated with the presentation includes (Right knee arthritis, fracture, dislocation) Admission/Observation Consideration of admission/observation: Escalation of care including admission/observation considered Independent Interpretation I performed an independent interpretation of an: Plain X-Ray Radiology Impression Discussion of test interpretation with radiology: I have reviewed the radiologist's reading. Independent Historian Clinical information obtained from an independent historian. History obtained from or confirmed by: Other (Patient) External Record Review External record reviewed: Other (prior visists) Prescription Management I considered prescription management with: Pain Medication Discharge Plan Discharge Clinical Impression: Arthritis of knee Patient Disposition: Home, Self-Care Instructions: Osteoarthritis (ED), Swollen Knee Joint (ED) Additional Instructions: You will need follow-up with primary care provider and orthopedic surgeon. You may need physical therapy and MRI. Return to the ED immediately for any knee swelling, redness, knee stiffness, leg swelling, calf pain, chest pain, shortness of breath, hotness, coldness, bluish black discoloration, inability to walk, or any other concerning symptoms. Do not take any other NSAIDS with ketorolac. Do not take naproxen, motrin, or alleve with Ketorolac. XR/XR knee RT 4V IMPRESSION: 1. Progressive degenerative disease predominating in the patellofemoral joint. 2. Small joint effusion. 3. Diffuse soft tissue edema of the right lower extremity with atherosclerotic peripheral vascular disease. Electronically signed by: Oliver Shin MD 06/10/2024 11:33 AM EDT RP Prescriptions: New ketorolac 10 mg tablet 10 mg PO Q6H PRN (Reason: pain) 5 Days Qty: 20 0RF Rx Instructions: Received 30 mg IM Toradol in the ED prednisone 20 mg tablet 40 mg PO DAILY 5 Days Qty: 10 0RF No Action codeine-guaifenesin 10-100 mg/5 mL liquid 5 ml PO Q6H PRN (Reason: cough) Qty: 60 0RF fluticasone propionate 100 mcg/actuation blister with device 1 inh inhalation BID 14 Days Qty: 60 0RF Rx Instructions: rinse mouth after acetaminophen [Tylenol Extra Strength] 500 mg tablet 500 mg PO Q6H PRN (Reason: fever or pain) Qty: 14 0RF naproxen 500 mg tablet 500 mg PO BID PRN (Reason: pain) 10 Days Qty: 20 0RF atorvastatin 20 mg tablet 20 mg PO DAILY pantoprazole 40 mg tablet,delayed release (DR/EC) 40 mg PO DAILY losartan-hydrochlorothiazide 50-12.5 mg tablet 1 tab PO DAILY peg 3350-electrolytes [Golytely] 236-22.74-6.74 -5.86 gram recon soln 240 ml PO Q10M 1 Days Qty: 4000 0RF Rx Instructions: until fecal effluent is clear; do not exceed a total volume of 2,000 mL bisacodyl [Dulcolax (bisacodyl)] 5 mg tablet,delayed release (DR/EC) 10 mg PO BEDTIME 2 Days Qty: 4 0RF cetirizine 10 mg tablet 10 mg PO QAM Arnuity Ellipta 100 mcg/actuation blister with device inhalation Saline Nasal 0.65 % aerosol,spray 1 - 2 spray intranasal Q2-3H PRN (Reason: congestion) albuterol sulfate [Ventolin HFA] 90 mcg/actuation HFA aerosol inhaler 2 puff inhalation Q6H PRN cholecalciferol (vitamin D3) 25 mcg (1,000 unit) capsule 25 mcg PO DAILY pyridoxine (vitamin B6) 100 mg tablet 100 mg PO DAILY Qty: 90 3RF Referrals: [facility] Orthopedic Surgeons [Provider Group] (Right knee arthritis) Stand Alone Forms: Work/School Release Interventions: ED Discharge Assessment Last Done: 06/10/24 13:30 Discharge Date/Time: 06/10/24 13:30 Print Language: Luxembourgish
[2024-06-10 13:28] VITALS: BP 146/86; PULSE 80; RESP 20; TEMP 37; O2SAT 98
[2024-06-10 13:30] VITALS: BP 146/86; PULSE 80; RESP 20; TEMP 37; O2SAT 98
== END 2024-06-10 13:30 | disposition home or self-care (01) ==
PROVIDERS: Emergency Provider Emergency Medicine; PCP Internal Medicine Geriatric Medicine
DX: M17.11 Unilateral primary osteoarthritis, right knee (principal); Z79.899 Other long term (current) drug therapy
CPT/HCPCS: 73564; 96372; 99284; J1885

== ENCOUNTER 2024-07-06 11:54 | Outpatient (AMB) | payer MEDICAID, SELFPAY ==
--- NOTE | 2024-07-06 11:55 | MHC.OFFVIS ---
Intake Visit Reasons: New Pt - Right knee Pain Intake Note: Cathy was a 63 year old female who presents today as a new patient with complaints of right knee pain. Patient reports that she has had ongoing pain for quite some time now. She has history of back surgery. Patient has seen the [facility] for her pain in the right knee on multiple occasions. She tried and failed naproxen, muscle relaxers, Ice , heat and voltaren. Increased pain with standing, stairs and increased acitivty. Allergies acetaminophen [From Excedrin Back and Body] Allergy (Verified 06/10/24 10:53) Unknown aspirin [From Excedrin Back and Body] Allergy (Verified 06/10/24 10:53) Unknown calcium carbonate [From Excedrin Back and Body] Allergy (Verified 06/10/24 10:53) Unknown HPI HPI New Pt - Right knee Pain: Details: Cathy was a 63 year old female who presents today as a new patient with complaints of right knee pain. Patient reports that she has had ongoing pain for quite some time now. She has history of back surgery. Patient has seen the [facility] for her pain in the right knee on multiple occasions. She tried and failed naproxen, muscle relaxers, Ice , heat and voltaren. Increased pain with standing, stairs and increased acitivty. [facility] Medical History History of renal calculi Left flank discomfort COVID-19 High cholesterol High blood pressure Asthma HTN (hypertension) Surgical History History of back surgery History of esophagogastroduodenoscopy (EGD) H/O colonoscopy Family History Father No problems noted. Mother No problems noted. Social History Alcohol intake: never Patient Tobacco Use Status: Never used Tobacco Current occupational status: retired Current occupation: right hand dominant Physical Exam Extrem Other: Mild effusion Medial tibial tenderness to palpation Lateral retropatellar tenderness to palpation Office Procedures Joint Inj/Aspir; Non-Pain Clin Joint Injection/Drain Details: Injected 1 mL of Decadron and 3 mL 1% lidocaine and 3 mL of 0.25% Marcaine. Site was prepped using aseptic technique. Patient tolerated the procedure well. Approach Used: anterolateral Shoulders, Hips, Knees, Knee Large Joint Injection : Right Knee Coding Procedure code (CPT) selection complete Results Reviewed Results Reviewed: I personally reviewed relevant radiographs. Patellofemoral OA moderate to severe Assessment & Plan Assessment & Plan (1) Localized osteoarthritis of right knee: Code(s): M17.11 - Unilateral primary osteoarthritis, right knee Category: Medical Plan: This is a 63-year-old woman with right knee osteoarthritis primarily involving the patellofemoral joint. I explained her diagnosis to her and treatment options. At this point we elected to inject her knee. This was done without complication. She may follow up in 3 months for repeat injection if she so desires. Coding Level of Care Code New Pt Level 3 (46143) Diagnoses Localized osteoarthritis of right knee M17.11 CPT Codes Shoulders, Hips, Knees, - Knee Large Joint Injection : Right Knee ([id number])
== END 2024-07-06 12:27 | disposition home or self-care (01) ==
LOC: HO.HOS 11:54
PROVIDERS: PCP Internal Medicine Geriatric Medicine; Visit Provider Orthopaedic Surgery
DX: M17.11 Unilateral primary osteoarthritis, right knee (principal)
CPT/HCPCS: 20610; 99203

== ENCOUNTER → 2024-07-06 11:54 | Outpatient (BNVA) | payer MEDICAID, SELFPAY | PROVIDERS: PCP Internal Medicine Geriatric Medicine; Visit Provider Orthopaedic Surgery | DX: M17.11 Unilateral primary osteoarthritis, right knee (principal) | CPT/HCPCS: 20610; 99202; J0665; J1100; J2003 ==

== ENCOUNTER 2024-07-13 14:23 | Outpatient (REF) | payer MEDICAID, SELFPAY ==
--- NOTE | ~2024-07-13 | MM_ITS ---
EXAMINATION: MM SCREENING DIGITAL BREAST TOMOSYNTHESIS, BILATERAL CLINICAL INFORMATION: Screening. Asymptomatic. COMPARISON: Mammography: Comparison is made with available priors TECHNIQUE: Digital breast mammography with tomosynthesis is performed in both the craniocaudal and mediolateral oblique views along with computer-aided detection (CAD). FINDINGS: The breasts are heterogeneously dense, which may obscure small masses (ACR BI-RADS breast composition Category c). There are no significant masses, abnormal calcifications, or other abnormalities. MM/MM tomosynthesis screening BI IMPRESSION: No mammographic evidence of malignancy. ASSESSMENT: BI-RADS BI-RADS 1 - Negative RECOMMENDATION: Routine annual mammography screening. 1 year F/U This examination should not preclude the clinical evaluation of a suspicious palpable abnormality. This patient's information was entered into a reminder system with a target due date for their next mammogram. Electronically signed by: Joseline Walter DO 07/24/2024 09:13 AM PEGGY
== END 2024-07-13 14:24 | disposition home or self-care (01) ==
LOC: HO.MAMMO 14:23
PROVIDERS: PCP Internal Medicine Geriatric Medicine; Visit Provider Internal Medicine Geriatric Medicine
DX: Z12.31 Encounter for screening mammogram for malignant neoplasm of breast (principal)
CPT/HCPCS: 77063; 77067

== ENCOUNTER → 2024-07-13 14:45 | Outpatient (BNV) | payer MEDICAID, SELFPAY | PROVIDERS: PCP Internal Medicine Geriatric Medicine; Visit Provider Internal Medicine | DX: Z12.31 Encounter for screening mammogram for malignant neoplasm of breast (principal) | CPT/HCPCS: 77063; 77067 ==

== ENCOUNTER 2024-08-19 17:45 | Outpatient (REF) | payer MEDICAID, SELFPAY ==
--- NOTE | ~2024-08-19 | MR_ITS ---
EXAMINATION: MR KNEE WITHOUT CONTRAST, RIGHT CLINICAL INFORMATION: Chronic right knee pain, did not respond to knee steroid injection. COMPARISON: XR right knee 06/10/2024. TECHNIQUE: MRI of the knee without contrast was performed using routine sequences on a high-field scanner. FINDINGS: MENISCI: Medial Meniscus: Complex tear of the meniscal body with a prominent radial component. Lateral Meniscus: Probable small undersurface tear of the anterior horn. LIGAMENTS: Cruciate: Intact. Collateral: Intact. Mild MCL bursitis. EXTENSOR MECHANISM: Intact. ARTICULAR CARTILAGE/BONE: Patellofemoral Compartment: Severe osteoarthritis with extensive full-thickness cartilage loss and surface remodeling throughout the lateral patellar facet and central/lateral trochlea with small degenerative cysts and prominent marginal osteophytes. Medial Compartment: Cartilage thinning throughout the weightbearing aspect with foci of full-thickness loss, prominent marrow edema and small marginal osteophytes. Lateral Compartment: Peripheral cartilage thinning and prominent marginal osteophytes. JOINT FLUID AND BURSAE: Small joint effusion. Several loose bodies are present within the posterior joint recess. Small chondral bodies present in the popliteus tendon sheath. MR/MR knee RT wo con IMPRESSION: 1. Complex tear of the medial meniscus body with a prominent radial component. 2. Probable small undersurface tear of the anterior horn of the lateral meniscus. 3. Severe patellofemoral and moderate medial compartment osteoarthritis with a small joint effusion and multiple loose bodies. Electronically signed by: Jose R Joy MD 08/23/2024 03:37 PM PEGGY Workstation: [id number]
== END 2024-08-19 17:46 | disposition home or self-care (01) ==
LOC: HO.MRI 17:45
PROVIDERS: PCP Internal Medicine Geriatric Medicine; Visit Provider Internal Medicine Geriatric Medicine
DX: M25.561 Pain in right knee (principal); G89.29 Other chronic pain
CPT/HCPCS: 73721

== ENCOUNTER 2024-10-08 12:59 | Outpatient (AMB) | payer MEDICAID, SELFPAY ==
--- NOTE | 2024-10-08 13:03 | A.OFFVIS_ITS ---
Intake Visit Reasons: Inj- RT Euflexxa #1 Intake Note: Cathy is a 63 year old female who presents today for a follow up of her right knee OA. Last injection was administered 07/06/24. Patient reports that she has not had adequate relief with the cortisone injection. She will be getting her first dose of Euflexxa gel injection on her right knee today. Allergies acetaminophen [From Excedrin Back and Body] Allergy (Verified 10/08/24 13:03) Unknown aspirin [From Excedrin Back and Body] Allergy (Verified 10/08/24 13:03) Unknown calcium carbonate [From Excedrin Back and Body] Allergy (Verified 10/08/24 13:03) Unknown HPI HPI Inj- RT Euflexxa #1: Details: Cathy is a 63 year old female who presents today for a follow up of her right knee OA. Last injection was administered 07/06/24. Patient reports that she has not had adequate relief with the cortisone injection. She will be getting her first dose of Euflexxa gel injection on her right knee today. [facility] Medical History History of renal calculi Left flank discomfort COVID-19 High cholesterol High blood pressure Asthma HTN (hypertension) Surgical History History of back surgery History of esophagogastroduodenoscopy (EGD) H/O colonoscopy Family History Father No problems noted. Mother No problems noted. Social History Alcohol intake: never Patient Tobacco Use Status: Never used Tobacco Current occupational status: retired Current occupation: right hand dominant Physical Exam Extrem Other: Skin clean dry and intact right knee Office Procedures Joint Inj/Aspir; Non-Pain Clin Joint Injection/Drain Details: Injected Euflexxa. Site was prepped using aseptic technique. Patient tolerated the procedure well. Shoulders, Hips, Knees, Knee Large Joint Injection : Right Knee Coding Procedure code (CPT) selection complete Assessment & Plan Assessment & Plan (1) Localized osteoarthritis of right knee: Code(s): M17.11 - Unilateral primary osteoarthritis, right knee Category: Medical Plan: I injected Euflexxa 09/07. No issues. Coding Level of Care Code Est Pt Level 2 (86224) Diagnoses Localized osteoarthritis of right knee M17.11 CPT Codes Shoulders, Hips, Knees, - Knee Large Joint Injection : Right Knee ([id number])
--- OUTSIDE RECORDS SUMMARY | 2024-10-08 14:17 | XMS_ITS | Encounter Summary ---
Author Organization [employer] Address [address] [facility] [address] [address] 7t [place] [address] Care Team Providers Care Nutrition Associate Name Role Phone Name, Best ROCA Primary Care Provider [phone] Reason for Visit * Reason Comments Cough Encounter Details Date Type Department Care Team ([facility] st Contact Info) Description 09/12/2024 6:20 PM EST Office Visit [facility] [address] [place], [place] [phone] Laura Don NP [address] [place], [place] [phone] Cough in adult patient Social History Tobacco Use Types Packs/Day Years Used Date Smoking Tobacco: Never Passive Smoke Exposure: Never Smokeless Tobacco: Never Alcohol Use Standard Drinks/Week Comments Never 0 (1 standard drink = 0.6 oz pur e alcohol) Alcohol Answer Date Recorded Frequency of Alcohol Consumption Not on file 06/22/2024 Average Number of Drinks Not on file 024 Frequency of Binge Drinking Not on file 06/05 Score 0 06/22/2024 Depression Answer Date Recorded Patient Health Questionnaire-9 Score 6 06/22/2024 Patient Health Questionnaire-9 Score 6 06/22/2024 Last PHQ-9: Questionnaire Data Not on file 1 Housing Stability Answer Date Recorded What is your housing situation today? I have carroll montilla 06/26/[address] you li ve. Do you have problems with any of the following? None of the above 06/26/2023 Food Insecurity Answer Date Recorded Within the past 12 months, y ou worried that your food would run out before you got money to buy more: Never True 06/26/2023 Within the past 12 months,th e food you bought just didn't last and you didn't have enough money to get more: Never True Transportation Answer Date Recorded In the past 12 months, has l ack of transportation kept you from medical appts, meetings, work or from getting things needed for daily living? No 06/26/2023 Utilities Answer Date Recorded In the past 12 months, has t he electric, gas, oil or water company threatened to shut off services in your home? No 06/26/2023 Depression Answer Date Recorded Patient Health Questionnaire-2 Score 2 06/22/2024 Comments Unknown Sex and Gender Information Value Date Recorded Sex Assigned at Female 07/05/2022 10:14 AM EDT Legal Sex Female 10:14 AM EDT Gender Identity Female 07/05/2022 10:14 AM EDT Sexual Orientation Straight 07/05/2022 10 :14 AM EDT documented as of this encounter Last Filed Vital Signs Vital Sign Reading Time Taken Comments Blood Pressure 114/76 09/12/2024 6:11 PM EST Pulse 93 09/12/2024 6:11 PM EST Temperature 36.8 ??C (98.3 ??F) 09/12/2024 6:11 PM ES T Respiratory Rate 18 09/12/2024 6:11 PM EST Oxygen Saturation 96% 09/12/2024 6:11 PM EST Inhaled Oxygen Concentration - - Weight 85.3 kg (188 lb) 09/12/2024 6:11 PM EST Height - - Body Mass Index 36.72 08/11/2024 8:55 AM EST documented in this encounter Progress Notes * Laura Don, KEYANNA - 09/12/2024 6:20 PM EST SUBJECTIVE: Cathy Joyner is a 63 y.o. female who presents to the [facility] for a sick visit. Denies recent illness, injury, or hospitalization. HPI Cathy states she's been sick with cough, body ache, headache, nasal congestion, sore throat for the past 4 days. Reports some shortness of breath and fever last night but did not have means of checking her temp. She denies sick contacts. She's been drinking tea with kajal and lemon and has alsotried flonase and not noticed any change in her symptoms. Review of Systems Constitutional: Negative. Negative for chills and fever. HENT: Positive for congestion and sore throat. Negative for ear pain. Respiratory: Positive for cough and shortness of breath. Negative for chest tightness and wheezing. Cardiovascular: Negative for chest pain. Gastrointestinal: Negative for abdominal pain, constipation, diarrhea and nausea. Genitourinary: Negative for dysuria. Musculoskeletal: Negative for arthralgias, back pain, myalgias and neck pain. Skin: Negative. Negative for rash and wound. Neurological: Negative for weakness, light-headedness and headaches. Psychiatric/Behavioral: Negative for behavioral problems, confusion, decreased concentration and suicidal ideas. OBJECTIVE: Visit Vitals BP 114/76 (BP Location: Right arm, Patient Position: Sitting, BP Cuff Size: Adult) Pulse 93 Temp 98.3 ??F (36.8 ??C) (Temporal) Resp 18 Wt 188 lb (85.3 kg) SpO2 96% BMI 36.72 kg/m?? Smoking Status Never BSA 1.9 m?? Patient Active Problem List Diagnosis Allergic conjunctivitis Allergic rhinitis Asthma Blurring of visual image Hiatal hernia Hyperlipidemia Hypertension Nephrolithiasis Chest pain Pain in lower limb Proteinuria Swelling of lower limb Obesity (BMI 35.0-39.9 without comorbidity) History of renal calculi Spondylolisthesis at L4-L5 level History of lumbar spinal fusion Bronchitis Venous insufficiency Hypertensive retinopathy Mild intermittent asthma with exacerbation Cough in adult Viral URI Pre-op examination Lumbar degenerative disc disease Left flank discomfort Ganglion cyst of finger of right hand COVID-19 Arthralgia Subacute maxillary sinusitis Physical Exam Vitals reviewed. Constitutional: General: She is not in acute distress. Appearance: Normal appearance. She is not ill-appearing. HENT: Head: Normocephalic and atraumatic. Right Ear: External ear normal. Left Ear: External ear normal. Nose: Nose normal. Eyes: General: No scleral icterus. Extraocular Movements: Extraocular movements intact. Cardiovascular: Rate and Rhythm: Normal rate and regular rhythm. Pulses: Normal pulses. Heart sounds: Normal heart sounds. Pulmonary: Effort: Pulmonary effort is normal. No respiratory distress. Breath sounds: Normal breath sounds. Decreased air movement present. Musculoskeletal: General: Normal range of motion. Cervical back: Normal range of motion and neck supple. No tenderness. Lymphadenopathy: Cervical: No cervical adenopathy. Skin: General: Skin is warm and dry. Neurological: General: No focal deficit present. Mental Status: She is alert and oriented to person, place, and time. Gait: Gait normal. Psychiatric: Mood and Affect: Mood normal. Behavior: Behavior normal. Assessment/Plan Diagnoses and all orders for this visit: Cough in adult patient Comments: -symptoms suggestive of URI -Rapid COVID-19, Influenza, and Strep all negative today -rx'ed tessalon pearls to aid with cough -advised increase fluid intake and rest. May take tylenol/ibuprofen for body aches. Use previously rx'ed flonase. -Sore throat: salt water gargles, continue drinking tea with honey & lemon, suck lozenge -come to walk-in center if symptoms worsen, increasing shortness of breath or wheezing Orders: - POCT Rapid COVID Ag - POCT rapid strep A manually resulted - Influenza A (ID NOW Rapid Molecular) - Influenza B (ID NOW Rapid Molecular) - benzonatate (Tessalon Perles) 100 MG capsule; Take 1 capsule (100 mg) by mouth if needed in the morning, at noon, and at bedtime for cough for up to 7 days. Do not crush or chew. Slovenian Translation: Provided by [facility] staff member GREGORIA Rivera documented in this encounter Plan of Treatment Upcoming Encounters Date Type Department Care Team (Late st Contact Info) Description 11/06/2024 1:00 PM EST Office Visit [facility] MEDICINE [address] [place] [phone] Name, MD Best [address] [place] [phone] documented as of this encounter Procedures Procedure Name Priority Date/Time Associated Diagnosis Comments POCT INFLUENZA B (ID NOW RAPID MOLECULAR) Routine 09/12/2024 6:22 PM EST Cough in adult patient POCT INFLUENZA A (ID NOW RAPID MOLECULAR) Routine 09/12/2024 6:21 PM EST Cough in adult patient POC RAMSAY ID NOW STREP A Routine 09/12/2024 6:15 PM EST Cough in adult patient POCT RAPID COVID ANTIGEN Routine 09/12/2024 6:15 PM EST Cough in adult patient documented in this encounter Results * Influenza B (ID NOW Rapid Molecular) (09/12/2024 6:22 PM EST) [facility] Influenza B Negative Negative, Indeterminate [facility] Swab 09/12/2024 6:22 PM EST us Laura Appram PROPERTY ECONOMIST POINT OF CARE TEST ENTER/EDIT O RDERABLES Final Result Performing Organization Address [facility]/ZIP Co de Phone Number [facility] [address] [place] [phone] * Influenza A (ID NOW Rapid Molecular) (09/12/2024 6:21 PM EST) [facility] Influenza A Negative Negative, Indeterminate [facility] Swab 09/12/2024 6:21 PM EST us Sanchez Appram PROPERTY ECONOMIST POINT OF CARE TEST ENTER/EDIT O RDERABLES Final Result Performing Organization Address [facility] Co de Phone Number [facility] [address] [place] [phone] * POCT rapid strep A manually resulted (09/12/2024 6:15 PM EST) [facility] Rapid Strep A Screen Negative Negative, None Detected Swab 09/12/2024 6:15 PM EST us Laura Appram PROPERTY ECONOMIST POINT OF CARE TEST ENTER/EDIT O RDERABLES Final Result * POCT Rapid COVID Ag (09/12/2024 6:15 PM EST) [facility] Rapid COVID Ag Negative Swab 09/12/2024 6:15 PM EST us Laura Appram PROPERTY ECONOMIST POINT OF CARE TEST ENTER/EDIT O RDERABLES Final Result documented in this encounter Visit Diagnoses Diagnosis Cough in adult patient documented in this encounter Additional Health Concerns Assessment Noted Time PHQ-9 Depression Total Score: 6 06/22/20 24 1:53 PM EDT documented as of this encounter Care Teams Nutrition Associate Relationship Specialty Start Date End Date Name, MD Best [address] [place] [address] PCP - General Family Medicine 11/07/15 documented as of this encounter
--- OUTSIDE RECORDS SUMMARY | 2024-10-08 14:17 | XMS_ITS | Encounter Summary ---
Author Organization [employer] Address [address] [facility] 7t [place] [address] Care Team Providers Care Ship Steward Name Role Phone Name, Best ROCA Primary Care Provider [phone] Reason for Visit * Reason Onset Date Comments triage 10/19/2022 Encounter Details Date Type Department Care Team ([facility] st Contact Info) Description 10/19/2022 Telephone [facility] MEDICINE [address] [place], [place] [phone] Name, MD Best [address] [place], [place] [phone] triage Social History Tobacco Use Types Packs/Day Years Used Date Smoking Tobacco: Never Smokeless Tobacco: Never Alcohol Use Standard Drinks/Week Comments Never 0 (1 standard drink = 0.6 oz pur e alcohol) Comments Unknown Sex and Gender Information Value Date Recorded Sex Assigned at Female 07/05/2022 10:14 AM EDT Legal Sex Female 10:14 AM EDT Gender Identity Female 07/05/2022 10:14 AM EDT Sexual Orientation Straight 07/05/2022 10 :14 AM EDT COVID-19 Exposure Response Date Recorded In the last 10 days, have yo u been in contact with someone who was confirmed or suspected to have Coronavirus/COVID-19? No / Unsure 10/11/2022 1:35 PM EST documented as of this encounter Miscellaneous Notes * Telephone Encounter - Chuck Acuña - 10/19/2022 9:55 AM EST Symptom: Medication Question Outcome: Schedule an urgent appointment (within 4 hours) or talk to a nurse or provider soon Reason: New prescription question The caller accepted this outcome speaks albanian documented in this encounter Plan of Treatment Upcoming Encounters Date Type Department Care Team (Late st Contact Info) Description 11/06/2024 1:00 PM EST Office Visit [facility] MEDICINE [address] [place] [address] Name, MD Best [address] [place] [address] documented as of this encounter Visit Diagnoses Not on filedocumented in this encounter Care Teams Ship Steward Relationship Specialty Start Date End Date Name, MD Best [address] [place] [phone] PCP - General Family Medicine 11/07/15 documented as of this encounter
--- OUTSIDE RECORDS SUMMARY | 2024-10-08 14:17 | XMS_ITS | Encounter Summary ---
Author Organization [employer] Address [address] 7t [place] [address] Care Team Providers Care Electronic Instrument Trades Worker Name Role Phone Name, Best ROCA Primary Care Provider [phone] Encounter Details Date Type Department Care Team (Late st Contact Info) Description 03/27/2024 Telephone [facility] MEDICINE [address] [place], [place] [phone] Name, MD Best [address] [place], [place] [phone] Social History Tobacco Use Types Packs/Day Years Used Date Smoking Tobacco: Never Passive Smoke Exposure: Never Smokeless Tobacco: Never Alcohol Use Standard Drinks/Week Comments Never 0 (1 standard drink = 0.6 oz pur e alcohol) Depression Answer Date Recorded Patient Health Questionnaire-9 Score 0 12/29/2022 Housing Stability Answer Date Recorded What is [...] Answer Date Recorded Patient Health Questionnaire-2 Score 0 12/29/2022 Comments Unknown Sex and Gender Information Value Date Recorded Sex Assigned at Female 07/05/2022 10:14 AM EDT Legal Sex Female 10:14 AM EDT Gender Identity Female 07/05/2022 10:14 AM EDT Sexual Orientation Straight 07/05/2022 10 :14 AM EDT documented as of this encounter Miscellaneous Notes * Telephone Encounter - Siena Figueroa RN - 03/27/2024 1:34 PM EDT FYI T/C to pt. Through [employer] id - [id number] for below message, No answer. Not able to LVM. ( RN cannot see any discussion for liquid cough medication in last apt. Sending to PCP as FYI ) * Telephone Encounter - Cee Briceno - 03/27/2024 11:19 AM EDT Tc from pt requesting status on liquid cough medication that was going to be prescribe on last visit. documented in this encounter Plan of Treatment Upcoming Encounters Date Type Department Care Team (Late st Contact Info) Description 11/06/2024 1:00 PM EST Office Visit [facility] MEDICINE [address] [place] [phone] Name, MD Best [address] [place] [address] documented as of this encounter Visit Diagnoses Not on filedocumented in this encounter Additional Health Concerns Assessment Noted Time PHQ-9 Depression Total Score: 0 12/30/19 9:03 AM EDT documented as of this encounter Care Teams Electronic Instrument Trades Worker Relationship Specialty Start Date End Date Name, MD Best [address] [place] [phone] PCP - General Family Medicine 11/07/15 documented as of this encounter
--- OUTSIDE RECORDS SUMMARY | 2024-10-08 14:17 | XMS_ITS | Encounter Summary ---
Author Organization [employer] [facility] Address [address] [facility] 7t h Floor [place] [phone] Care Team Providers Care Youtuber Name Role Phone Name, Best ROCA Primary Care Provider [phone] Encounter Details Date Type Department Care Team (Late Contact Info) Description 02/28/2023 Abstract [facility] ADULT DENTAL [address] [place], [place] [phone] Alex Yusuf DDS [address] [place], [place] [phone] Social History Tobacco Use Types Packs/Day Years Used Date Smoking Tobacco: Never Passive Smoke Exposure: Never Smokeless Tobacco: Never Alcohol Use Standard Drinks/Week Comments Never 0 (1 standard drink = 0.6 oz pur e alcohol) Depression Answer Date Recorded Patient Health Questionnaire-9 Score 0 12/29/2022 Depression Answer Date Recorded Patient Health Questionnaire-2 [...] suspected to have Coronavirus/COVID-19? No / Unsure 03/02/2023 9:16 AM EDT documented as of this encounter Plan of Treatment Upcoming Encounters Date Type Department Care Team (Late st Contact Info) Description 11/06/2024 1:00 PM EST Office Visit [facility] MEDICINE [address] [place], [place] [phone] Name, MD Best [address] [place], [place] [phone] documented as of this encounter Visit Diagnoses Not on filedocumented in this encounter Additional Health Concerns Assessment Noted Time PHQ-9 Depression Total Score: 0 12/30/19 23 9:03 AM EDT documented as of this encounter Care Teams Youtuber Relationship Specialty Start Date End Date Name, MD Best [address] [place] [address] PCP - General Family Medicine 11/07/15 documented as of this encounter
--- OUTSIDE RECORDS SUMMARY | 2024-10-08 14:17 | XMS_ITS | Encounter Summary ---
Author Organization [employer] [facility] Address [address] [facility] 7t [place] [address] Care Team Providers Care Wastewater Operator Name Role Phone Name, Best ROCA Primary Care Provider [phone] Encounter Details Date Type Department Care Team (Late st Contact Info) Description 02/28/2023 Abstract [facility] ADULT DENTAL [address] [place], [place] [phone] Misty Fitzgerald [address] [place], [place] [phone] Social History Tobacco Use Types Packs/Day Years [...] Encounters Date Type Department Care Team (Late Contact Info) Description 11/06/2024 1:00 PM EST Office Visit [facility] MEDICINE [address] [place], [place] [phone] Name, MD Best [address] [place] [address] documented as of this encounter Visit Diagnoses Not on filedocumented in this encounter Additional Health Concerns Assessment Noted Time PHQ-9 Depression Total Score: 0 12/30/19 23 9:03 AM EDT documented as of this encounter Care Teams Wastewater Operator Relationship Specialty Start Date End Date Name, MD Best [address] [place] [address] PCP - General Family Medicine 11/07/15 documented as of this encounter
--- OUTSIDE RECORDS SUMMARY | 2024-10-08 14:17 | XMS_ITS | Encounter Summary ---
Author Organization [employer] Address [address] [facility] 7t [place] [address] Care Team Providers Care Warehouse Pricing And Inventory Clerk Name Role Phone Name, Best ROCA Primary Care Provider [phone] Reason for Visit * Reason Onset Date Comments Medication Question 07/26/2023 Encounter Details Date Type Department Care Team ([facility] st Contact Info) Description 07/26/2023 Telephone [facility] MEDICINE [address] [place], [place] [phone] Mikael Olivares MD [address] [place], [place] [phone] Medication Question Social History Tobacco Use Types Packs/Day Years Used Date Smoking Tobacco: Never Passive Smoke Exposure: Never Smokeless Tobacco: Never Alcohol Use Standard Drinks/Week Comments Never 0 (1 standard drink = 0.6 oz pur e alcohol) Depression Answer Date Recorded Patient Health Questionnaire-9 Score 0 12/29/2022 Housing Stability Answer Date Recorded What is your housing situation today? I have carrollrafael montilla 06/26/[address] you [...] encounter Miscellaneous Notes * Telephone Encounter - Jaykristian Andrés Webber - 07/26/2023 3:43 PM EST Tc from pt requesting a call in regards to medications prescribe for Cough: benzonatate (Tessalon Perles) 100 MG capsule and benzonatate (Tessalon) 100 MG capsule. Pt states that medication is not covered by her insurance is requesting if she could be prescribed: Meredith Tussin which was prescribed before for cough by her PCP Please contact pt at [phone] [place] Citizen Speaker documented in this encounter Plan of Treatment Upcoming Encounters Date Type Department Care Team (Late st Contact Info) Description 11/06/2024 1:00 PM EST Office Visit [facility] MEDICINE [address] [place] [phone] Name, MD Best [address] [place] [address] documented as of this encounter Visit Diagnoses Not on filedocumented in this encounter Additional Health Concerns Assessment Noted Time PHQ-9 Depression Total Score: 0 12/30/19 23 9:03 AM EDT documented as of this encounter Care Teams Warehouse Pricing And Inventory Clerk Relationship Specialty Start Date End Date Name, MD Best [address] [place] [phone] PCP - General Family Medicine 11/07/15 documented as of this encounter
--- OUTSIDE RECORDS SUMMARY | 2024-10-08 14:17 | XMS_ITS | Encounter Summary ---
Author Organization [employer] Address [address] 7[address] [place] [address] Care Team Providers Care Dryerman/Woman Name Role Phone Name, Best ROCA Primary Care Provider [phone] Encounter Details Date Type Department Care Team (Latest Contact Info) Description 09/12/2024 Travel Social History Tobacco Use Types Packs/Day Years [...] Description 11/06/2024 1:00 PM EST Office Visit [facility] MEDICINE [address] [place] [phone] Name, MD Best [address] [place] [phone] documented as of this encounter Visit Diagnoses Not on filedocumented in this encounter Additional Health Concerns Assessment Noted Time PHQ-9 Depression Total Score: 6 06/22/20 24 1:53 PM EDT documented as of this encounter Care Teams Dryerman/Woman Relationship Specialty Start Date End Date Name, MD Best [address] [place] [phone] PCP - General Family Medicine 11/07/15 documented as of this encounter
--- OUTSIDE RECORDS SUMMARY | 2024-10-08 14:17 | XMS_ITS | Encounter Summary ---
Author Organization [employer] Address [address] [facility] 7t [place] [address] Care Team Providers Care Practice Support Specialist Name Role Phone Name, Best ROCA Primary Care Provider [phone] Reason for Visit * Reason Comments Med Refill Encounter Details Date Type Department Care Team ([facility] st Contact Info) Description 09/24/2024 Refill [facility] MEDICINE [address] [place], [place] [phone] Name, MD Best [address] [place] [address] Hyperlipidemia, unspecified hyperlipidemia type Social History Tobacco Use Types Packs/Day Years [...] Description 11/06/2024 1:00 PM EST Office Visit [facility] MEDICINE [address] [place] [phone] Name, MD Best [address] [place] [address] documented as of this encounter Visit Diagnoses Diagnosis Hyperlipidemia, unspecified hyperlipidemia type documented in this encounter Additional Health Concerns Assessment Noted Time PHQ-9 Depression Total Score: 6 06/22/20 24 1:53 PM EDT documented as of this encounter Care Teams Practice Support Specialist Relationship Specialty Start Date End Date Best Marcelo MD [address] [place] [phone] PCP - General Family Medicine 11/07/15 documented as of this encounter
--- OUTSIDE RECORDS SUMMARY | 2024-10-08 14:17 | XMS_ITS | Clinical Summary ---
Author Organization [employer] Address [address] [facility] [address] [place] [address] Care Team Providers Care Arcade Attendant Name Role Phone Name, Best ROCA Primary Care Provider [phone] Allergies Active Allergy Reactions Criticality Noted Date Comments Antony Inhibitors Cough 08/21/2010 Acetaminophen Unknown 02/06/2016 Caffeine 02/06/2016 Calcium Carbonate Unknown 06/04/2024 Medications cholecalciferol (Vitamin D-3) 25 MCG (1000 UT) tablet Take 1,000 Units by mouth in the morning. Active clobetasol (Temovate) 0.05 % ointmentIndicatio ns:Lichen sclerosus of vulva Apply topically 2 times daily. 30 g Active pyridoxine (Vitamin B-6) 100 MG tablet Take 100 mg by mouth in the morning. Active albuterol (Ventolin HFA) 108 (90 Base) MCG/ACT inhalerIndication s:Mild intermittent asthma with exacerbation Inhale 2 puffs every 6 (six) hours if needed for shortness of breath or wheezing. 18 g 1 024 Active sodium chloride (Estill Nasal [place]) 0.65 % nasal sprayIndications: Mild intermittent asthma with exacerbation,Coni l URI 1-2 sprays on each nostril every 2-3 hours as needed for nasal congestion 44 mL 1 Active fluticasone furoate (Arnuity Ellipta) 100 MCG/ACT inhaler Inhale 1 puff Once per day. Rinse mouth with water after use to reduce aftertaste and incidence of candidiasis. Do not swallow. 1 each 024 2024 Active cetirizine (ZyrTEC) 10 MG tablet TAKE 1 TABLET BY MOUTH EVERY DAY IN THE MORNING 90 tablet 1 024 Active pantoprazole (ProtoNix) 40 MG EC tabletIndications :Heartburn TAKE 1 TABLET BY MOUTH EVERY DAY 90 tablet Active albuterol (2.5 MG/3ML) 0.083% nebulizer solutionIndicatio ns:Mild intermittent asthma with exacerbation TAKE 3 ML (2.5 MG) VIA NEBULIZATION EVERY 6 HOURS NEEDED FOR WHEEZE 75 mL Active acetaminophen (Tylenol) 500 MG tablet 2 tablets Q4-6h2 tablets Q4-6h 30 tablet Active losartan-hydroCHL OROthiazide (Hyzaar) 50-12.5 MG tablet TAKE 1 TABLET BY MOUTH EVERY DAY 90 tablet 1 024 Active fluticasone (Flonase) 50 MCG/ACT nasal sprayIndications: Mild intermittent asthma with exacerbation SPRAY 1 SPRAY INTO EACH NOSTRIL ONCE A DAY 48 mL Active atorvastatin (Lipitor) 20 MG tabletIndications :Hyperlipidemia, unspecified hyperlipidemia type TAKE 1 TABLET BY MOUTH EVERY DAY IN THE MORNING 90 tablet 1 025 Active atorvastatin (Lipitor) 20 MG tabletIndications :Hyperlipidemia, unspecified hyperlipidemia type TAKE 1 TABLET BY MOUTH EVERY DAY IN THE MORNING 90 tablet 1 024 2024 Discontinued benzonatate (Tessalon Perles) 100 MG capsuleIndication s:Cough in adult patient Take 1 capsule (100 mg) by mouth if needed in the morning, at noon, and at bedtime for cough for up to 7 days. Do not crush or chew. 20 capsule 025 2024 Active Problems Problem Noted Date Diagnosed Date Subacute maxillary sinusitis 08/06/2024 Assessment & Plan (08/06/2024 1:38 PM EST): Augmentin x 7d Rest (sleep at least 8 hours a night). Hydrate with plenty of water (avoid caffeine and alcohol). Use saline nose drops to loosen mucus + Flonase bid x 1w Take Acetaminophen (Tylenol??)/Ibuprofen as needed to reduce fever, headache, body aches or discomfort Gargle with salt water and use throat sprays/lozenges for throat pain. Use heated, humidified air. If you do not have a humidifier, take hot showers. Pre-op examination 06/21/2024 Lumbar degenerative disc disease 06/21/2024 Left flank discomfort 06/21/2024 Ganglion cyst of finger of right hand 06/21/2024 Overview (06/21/2024): Ring finger COVID-19 06/21/2024 Arthralgia 06/21/2024 Mild intermittent asthma with exacerbation 03/26 Assessment & Plan (08/06/2024 1:36 PM EST): Use albuterol tid prn sough/wheezing/ SOB Cough in adult 03/26/2024 Viral URI 03/26/2024 Venous insufficiency 12/12/2023 Hypertensive retinopathy 12/12/2023 Bronchitis 03/18/2023 Assessment & Plan (03/18/2023 9:46 AM EDT): Drink plenty of fluids rest Obesity (BMI 35.0-39.9 without comorbidity) 12/05 History of renal calculi 12/29/2022 Spondylolisthesis at L4-L5 level 12/29/2022 History of lumbar spinal fusion 12/29/2022 Overview (12/29/2022): [facility] on 12/06/22 for spinal fusion: L4-5 transforaminal lumbar interbody fusion and percutaneous posterior instrumented spinal fusion. Allergic conjunctivitis 10/09/2018 Blurring of visual image 10/09/2018 Pain in lower limb 04/12/2017 Swelling of lower limb 04/12/2017 Allergic rhinitis 12/14/2016 Nephrolithiasis 04/05/2016 Proteinuria 09/10/2015 Chest pain 03/01/2014 Asthma 10/02/2012 Hiatal hernia 10/02/2012 Hyperlipidemia 10/02/2012 Hypertension 10/02/2012 Resolved Problems Problem Noted Date Diagnosed Date Resolved Date Abdominal pain, generalized 12/29/2022 12/29/2022 H/O nausea 12/29/2022 12/29/2022 Heartburn symptom 12/29/2022 12/29/2022 LUQ abdominal pain 12/29/2022 Acute midline thoracic back pain 09/21/2022 12/29/2022 Assessment & Plan (09/21/2022 10:55 AM EST): She does have hx of thorascic back pain but reprots this morning it was worse than normal . Improving thoracic back pain pt describes as in the lungs Normal vitals, EKG without evidence of ischemia or past infacrtsion. I recommen Emergency Room evaluation for further imaging. Pt does not want to go. She agrees to go if sympoms worsen or do not improved. Chronic thoracic back pain 02/01/2019 0 12/29/2022 Thoracic radiculopathy 07/13/201612/29 Encounters Date Type Department Care Team Description 09/24/2024 Refill [facility] [address] [place] [phone] Best Marcelo MD Hyperlipidemia, unspecified hyperlipidemia type 09/12/2024 6:20 PM EST Office Visit [facility] [address] [place] [phone] Laura Don NP Cough in adult patient 09/12/2024 Travel 09/03/2024 Telephone [facility] [address] [place] [address] [phone] Rochelle Gaona MA jan recalls 08/27/2024 Orders Only [facility] [address] [place] [address] [phone] Best Marcelo MD Chronic pain of right knee (Primary Dx); Old peripheral tear of meniscus of right knee, unspecified meniscus 08/12/2024 Refill [facility] [address] [place] [address] [phone] Best Marcelo MD Mild intermittent asthma with exacerbation 08/11/2024 9:00 AM EST Office Visit [facility] [address] [place] [address] [phone] Best Marcelo MD Chronic pain of right knee (Primary Dx) 08/11/2024 Travel 08/10/2024 Telephone [facility] [address] [place] [address] [phone] Best Marcelo MD Nurse Triage 08/06/2024 2:40 PM EST Office Visit [facility] [address] [place] [address] Suzanne Frazier MD Subacute maxillary sinusitis (Primary Dx); Mild intermittent asthma with exacerbation; Acute cough 08/06/2024 Travel 08/01/2024 Telephone [facility] [address] [place] [phone] Best Marcelo MD Nurse Triage 08/01/2024 Refill [facility] [address] [place] [phone] Best Marcelo MD Heartburn; Mild intermittent asthma with exacerbation 08/01/2024 Refill [facility] [address] [place] [address] Suzanne Frazier MD Mild intermittent asthma with exacerbation 07/13/2024 Orders Only [facility] [address] [place] [address] [phone] Best Marcelo MD from Last 3 Months Immunizations Name Administration Dates Next Due Hep B, adult 03/06/2013,09/27/2012,08/16/2012 Influenza Injectable Quadriv alant Preservative Free IIV4 MDCK 09/03/2023,05/22/2022,05/21/2018 Influenza injectable quadriv alent IIV4 with preservative 05/29/2019 Influenza injectable quadriv alent preservative free 05/19/2021,05/24/2020,05/02/2017,06/04,05/20/2016,04/29/2015 Influenza, IIV3, injectable 05/24/2020,0 05/29/2019,05/21/2018,05/02,06/04/2016,05/20/2016,04/29/2015 ,07/16/2011 Influenza, Injectable, MDCK, preservative free 05/12/2024 Influenza, Split (incl. nitin fied surface antigen) 05/18/2013 Moderna Covid-19 Vaccine 12+ 10/01/2021,09/28/19 22 Pneumococcal Conjugate PCV 20 12/29/2022 Pneumococcal Polysaccharide PPSV23 07/24/1997 Tdap 09/10/2016 Zoster, Recombinant 03/02/2023,12/29/2022 Social History Tobacco Use Types Packs/Day Years Used Date Smoking Tobacco: Never Passive Smoke Exposure: Never Smokeless Tobacco: Never Tobacco Cessation:Counseling Given: Not Answered Alcohol Use Standard Drinks/Week Comments Never 0 [...] Orientation Straight 07/05/2022 10 :14 AM EDT Last Filed Vital Signs Vital Sign Reading Time Taken Comments Blood Pressure 114/76 09/12/2024 6:11 PM EST Pulse 93 09/12/2024 6:11 PM EST Temperature 36.8 ??C (98.3 ??F) 09/12/2024 6:11 PM ES T Respiratory Rate 18 09/12/2024 6:11 PM EST Oxygen Saturation 96% 09/12/2024 6:11 PM EST Inhaled Oxygen Concentration - - Weight 85.3 kg (188 lb) 09/12/2024 6:11 PM EST Height 152.4 cm (5') 08/11/2024 8:55 AM EST Body Mass Index 36.72 08/11/2024 8:55 AM EST Plan of Treatment Upcoming Encounters Date Type Department Care Team (Late st Contact Info) Description 11/06/2024 1:00 PM EST Office Visit [facility] [address] [place], [place] [phone] Name, MD Best [address] [place] [address] Health Maintenance Due Date Last Done Comments CT Colonography 1960 Colonoscopy 1960 Colorectal Cancer Screening 1960 FIT DNA/Cologuard 1959 FIT 1959 FOBT 1960 Sigmoidoscopy 1960 RSV Patients and Patients Aged 60 years or older (1 - Risk 60-74 years 1-dose series) 2019 Dental Oral Exam 07/08/2022 01/04/2022, , 05/31/2019, Additional history exists Dental Prophylaxis 07/08/2022 01/04/2022, 0 01/01/2021, 04/18/2019, Additional history exists Dental X-Ray: Full Mouth 01/03/2024 01/01/2021, 07/06 Dental X-Ray: Bitewings 02/26/2024 02/25/20 23, 01/04/2022, 01/01/2021, Additional history exists COVID-19 Vaccine ( season) 2024 10/01/2021, 09/28/2021, 01/05/2021, Additional history exists SDOH Screening 12/04/2024 12/05/2023 Alcohol/Substance Use Screening 06/22/2025 06/22/2024 Depression Screening 06/22/2025 06/22/2024, 06/22/20 24 Mammogram 07/13/2025 07/13/2024, 10/0 11/2022, 06/07/2023, Additional history exists Pap Smear 07/14/2025 07/14/2022 Tobacco Screening 08/11/2025 08/11/2024 DTaP/Tdap/Td Vaccines (2 - Td or Tdap) 09/10/2026 09/10/2016 Cervical Cancer Screening 07/14/2027 HPV/Cotest 07/14/2027 07/14/2022 Lipid Panel 12/14/2028 12/15/2023 Hepatitis B Vaccines Completed 03/06/2013, 09/27/2012, 08/16/2012 Hepatitis C Screening Completed 07/14/2022 Pneumococcal Vaccine: 50+ Years Completed 12/29/2022, 07/24/1997 Zoster Vaccines Completed 03/02/2023, 12/29/2022 Influenza Vaccine Completed 05/12/2024, , 05/22/2022, Additional history exists HIB Vaccines Aged Out No longer eligi ble based on patient's age to complete this topic HPV Vaccines Aged Out No longer eligi ble based on patient's age to complete this topic Hepatitis A Vaccines Aged Out No long er eligible based on patient's age to complete this topic IPV Vaccines Aged Out No longer eligi ble based on patient's age to complete this topic Meningococcal Vaccine Aged Out No magnus manju eligible based on patient's age to complete this topic RSV under 20 months Aged Out No longe r eligible based on patient's age to complete this topic Rotavirus Vaccines Aged Out No longer eligible based on patient's age to complete this topic Procedures Procedure Name Priority Date/Time Associated Diagnosis [...] 6:15 PM EST Cough in adult patient MR KNEE WO CONTRAST RIGHT Routine 08/19/2024 5:45 PM EST Chronic pain of right knee POCT COVID-19 AG RAMSAY ID NOW Routine 08/06/2024 1:33 PM EST Acute cough POCT INFLUENZA B (ID NOW RAPID MOLECULAR) Routine 08/06/2024 1:33 PM EST Acute cough POCT INFLUENZA A (ID NOW RAPID MOLECULAR) Routine 08/06/2024 1:33 PM EST Acute cough BI MAMMOGRAM SCREENING TOMOSYNTHESIS BILATERAL Routine 07/13/2024 2:24 PM EST LIPID PANEL, STANDARD Routine 12/15/2023 11:23 AM EDT Primary hypertension PE (physical exam), annual BITEWINGS - 4 RADIOGRAPHIC IMAGES Routine 02/24/2023 9:00 AM EDT ZZZ HISTORICAL HEPATITIS C AB W/REFL TO HCV RNA, QN, PCR Routine 07/14/2022 3:30 PM EST THINPREP IMAGING PAP AND HPV MRNA E6/E7, WITH CT/NG, TRICHOMONAS Routine 07/14/2022 3:03 PM EST PROPHYLAXIS - ADULT Routine 01/04/2022 1 2:00 AM EDT PERIODIC ORAL EVALUATION - ESTABLISHED PATIENT Routine 01/04/2022 12:00 AM EDT DIAGNOSTIC - DIAGNOSTIC IMAGING - INTRAORAL - COMPREHENSIVE SERIES OF RADIOGRAPHIC IMAGES Routine 01/01/2021 12:00 AM EDT from Last 3 Months or Most Recently Relevant to Health Maintenance Results * Influenza B (ID NOW Rapid Molecular) (09/12/2024 6:22 PM EST) Only the most recent of2 resultswithin the time period is included. Influenza B Negative Negative, Indeterminate [facility] Swab 09/12/2024 6:22 PM EST us Laura Appram SOLAR SALES MANAGER POINT OF CARE TEST ENTER/EDIT O RDERABLES Final Result Performing Organization Address City/[facility]/ZIP Co de Phone Number [facility] [address] [place] [phone] * Influenza A (ID NOW Rapid Molecular) (09/12/2024 6:21 PM EST) Only the most recent of2 resultswithin the time period is included. [facility] Influenza A Negative Negative, Indeterminate [facility] Swab 09/12/2024 6:21 PM EST Laura Herrera SOLAR SALES MANAGER POINT OF CARE TEST ENTER/EDIT O RDERABLES Final Result Performing Organization Address [facility] Co de Phone Number [facility] [address] [place] [address] [phone] * POCT rapid strep A manually resulted (09/12/2024 6:15 PM EST) [facility] Rapid Strep A Screen Negative Negative, None Detected Swab 09/12/2024 6:15 PM EST Laura Herrera SOLAR SALES MANAGER POINT OF CARE TEST ENTER/EDIT O RDERABLES Final Result * POCT Rapid COVID Ag (09/12/2024 6:15 PM EST) [facility] Rapid COVID Ag Negative Swab 09/12/2024 6:15 PM EST Laura Herrera SOLAR SALES MANAGER POINT OF CARE TEST ENTER/EDIT O RDERABLES Final Result * MR Knee w/o Contrast Right (08/19/2024 5:45 PM EST) Anatomical Region Laterality Modality Magnetic Resonan ce 08/19/2024 5:45 PM EST Narrative 08/23/2024 3:39 PM EST ? [facility] ?[address] ?[place] [address] ? Magnetic Resonance Report ? Signed ? Patient: Fuller Melguizo,Cathy ?MR#: ?? [id number] ? : 1960 ?Acct:[id number] ? Age/Sex: 63 / F ?ADM Date: 08/19/24 ? Loc: HO.MRI ? Attending Dr: Best Marcelo MD ? Ordering Physician: Best Marcelo MD ?? Date of Service: 08/19/24 ?? Procedure(s): MR knee RT wo con ?? Accession Number(s): [id number] ? cc: Best Marcelo MD ? EXAMINATION: ?? MR KNEE WITHOUT CONTRAST, RIGHT ? CLINICAL INFORMATION: ?? Chronic right knee pain, did not respond to knee steroid injection. ? COMPARISON: ?? XR right knee 06/10/2024. ? TECHNIQUE: ?? MRI of the knee without contrast was performed using routine sequences ?? on a high-field scanner. ? FINDINGS: ? MENISCI: ? Medial Meniscus: Complex tear of the meniscal body with a prominent ?? radial component. ?? Lateral Meniscus: Probable small undersurface tear of the anterior ?? horn. ? LIGAMENTS: ? Cruciate: Intact. ?? Collateral: Intact. Mild MCL bursitis. ? EXTENSOR MECHANISM: Intact. ? ARTICULAR CARTILAGE/BONE: ? Patellofemoral Compartment: ??Severe osteoarthritis with extensive ?? full-thickness cartilage loss and surface remodeling throughout the ?? lateral patellar facet and central/lateral trochlea with small ?? degenerative cysts and prominent marginal osteophytes. ? Medial Compartment: Cartilage thinning throughout the weightbearing ?? aspect with foci of full-thickness loss, prominent marrow edema and ?? small marginal osteophytes. ? Lateral Compartment: Peripheral cartilage thinning and prominent ?? marginal osteophytes. ? JOINT FLUID AND BURSAE: Small joint effusion. Several loose bodies are ?? present within the posterior joint recess. Small chondral bodies ?? present in the popliteus tendon sheath. ? MR/MR knee RT wo con ?? IMPRESSION: ?? 1. Complex tear of the medial meniscus body with a prominent radial ?? component. ? 2. Probable small undersurface tear of the anterior horn of the lateral ?? meniscus. ? 3. Severe patellofemoral and moderate medial compartment osteoarthritis ?? with a small joint effusion and multiple loose bodies. ? Electronically signed by: ??Jose R Joy MD ??08/23/2024 03:37 PM ?? EST RP ? Dictated By: ?Jose R Joy MD ? Signed By: ?<Electronically signed by Jose R Joy MD in OV> ? 08/23/247 ? DD/ 5825 ? TD/TT: 08/19/24 1824 ? Lead Manufacturing Engineer: DM ? Procedure Note Donzehrater, Image - 08/23/[address] [address] Magnetic Resonance Report Signed Patient: Gwen Humphreys#: [id number] : 1960Acct:[id number] Age/Sex: 63 / FADM Date: 08/19/24 Loc: HO.MRI Attending Dr: Best Marcelo MD Ordering Physician: Best Marcelo MD Date of Service: 08/19/24 Procedure(s): MR knee RT wo con Accession Number(s): [id number] cc: Best Marcelo MD EXAMINATION: MR KNEE WITHOUT CONTRAST, RIGHT CLINICAL INFORMATION: Chronic right knee pain, did not respond to knee steroid injection. COMPARISON: XR right knee 06/10/2024. TECHNIQUE: MRI of the knee without contrast was performed using routine sequences on a high-field scanner. FINDINGS: MENISCI: Medial Meniscus: Complex tear of the meniscal body with a prominent radial component. Lateral Meniscus: Probable small undersurface tear of the anterior horn. LIGAMENTS: Cruciate: Intact. Collateral: Intact. Mild MCL bursitis. EXTENSOR MECHANISM: Intact. ARTICULAR CARTILAGE/BONE: Patellofemoral Compartment: Severe osteoarthritis with extensive full-thickness cartilage loss and surface remodeling throughout the lateral patellar facet and central/lateral trochlea with small degenerative cysts and prominent marginal osteophytes. Medial Compartment: Cartilage thinning throughout the weightbearing aspect with foci of full-thickness loss, prominent marrow edema and small marginal osteophytes. Lateral Compartment: Peripheral cartilage thinning and prominent marginal osteophytes. JOINT FLUID AND BURSAE: Small joint effusion. Several loose bodies are present within the posterior joint recess. Small chondral bodies present in the popliteus tendon sheath. MR/MR knee RT wo con IMPRESSION: 1. Complex tear of the medial meniscus body with a prominent radial component. 2. Probable small undersurface tear of the anterior horn of the lateral meniscus. 3. Severe patellofemoral and moderate medial compartment osteoarthritis with a small joint effusion and multiple loose bodies. Electronically signed by: Jose R Joy MD 08/23/2024 03:37 PM EST RP Dictated By: Jose R Joy MD Signed By: <Electronically signed by Joes R Joy MD inOV> 08/23/24 1537 DD/ 1745 TD/TT: 08/19/24 1824 Lead Manufacturing Engineer: DM us Best Marcelo MD IMG MRI PROCEDURES Final Result * POCT COVID-19 Ag Ramsay ID NOW (08/06/2024 1:33 PM EST) Coronavirus Antigen PCR Negative Negative, Indeterminate, None Detected, Invalid, Specimen unsatisfactory for evaluation, Weakly Positive Swab 08/06/2024 1:33 PM EST us Suzanne Frazier MD POINT OF CARE TEST ENTER /EDIT ORDERABLES Final Result * BI Mammogram Screening Tomosynthesis Bilateral (07/13/2024 2:24 PM EST) Anatomical Region Laterality Modality Breast Bilateral Mammography 07/13/2024 2:24 PM EST Narrative 07/24/2024 9:16 AM EST ? [facility] ? [address] ?[place] [address] ? Mammography Report ? Signed ? Patient: Fuller Melguizo,Cathy ?MR#: ?? [id number] ? : 1960 ?Acct:[id number] ? Age/Sex: 63 / F ?ADM Date: 11/08/24 ? Loc: HO.MAMMO ? Attending Dr: Best Marcelo MD ? Ordering Physician: Best Marcelo MD ?Results: 1Negative ? Date of Service: 07/13/24 ?Follow Up: 1 Year From Orig ?? inal Mammogram ? Procedure(s): MM tomosynthesis screening BI ?? Accession Number(s): [id number] ? cc: Davian,Best ROCA ? EXAMINATION: ?? MM SCREENING DIGITAL BREAST TOMOSYNTHESIS, BILATERAL ? CLINICAL INFORMATION: ? Screening. Asymptomatic. ? COMPARISON: ?? Mammography: Comparison is made with available priors ? TECHNIQUE: ?? Digital breast mammography with tomosynthesis is performed in both the ?? craniocaudal and mediolateral oblique views along with computer-aided ?? detection (CAD). ? FINDINGS: ?? The breasts are heterogeneously dense, which may obscure small masses ?? (ACR BI-RADS breast composition Category c). ? There are no significant masses, abnormal calcifications, or other ?? abnormalities. ? MM/MM tomosynthesis screening BI ?? IMPRESSION: ?? No mammographic evidence of malignancy. ? ASSESSMENT: ? BI-RADS BI-RADS 1 - Negative ? RECOMMENDATION: ?? Routine annual mammography screening. ? 1 year F/U ? This examination should not preclude the clinical evaluation of a ?? suspicious palpable abnormality. ? This patient's information was entered into a reminder system with a ?? target due date for their next mammogram. ? Electronically signed by: ??Joseline Walter DO ??07/24/2024 09:13 AM EST ?? RP ? Dictated By: ?Joseline Walter DO ? Signed By: ?<Electronically signed by Joseline Walter, DO in OV> ? 07/24/24 0913 ? DD/ 1424 ? TD/TT: 07/13/24 1440 ? Lead Manufacturing Engineer: ? Procedure Note Donzehrater, Image - 07/24/2024 [facility] [address] [place] [address] Mammography Report Signed Patient: Gwen Humphreys#: [id number] : 1960Acct:[id number] Age/Sex: 63 / FADM Date: 07/13/24 Loc: HO.MAMMO Attending Dr: Best Marcelo MD Ordering Physician: Best Marceloesults: 1Negative Date of Service: 07/13/24Follow Up: 1 Year From Orig inal Mammogram Procedure(s): MM tomosynthesis screening BI Accession Number(s): [id number] cc: Best Marcelo MD EXAMINATION: MM SCREENING DIGITAL BREAST TOMOSYNTHESIS, BILATERAL CLINICAL INFORMATION: Screening. Asymptomatic. COMPARISON: Mammography: Comparison is made with available priors TECHNIQUE: Digital breast mammography with tomosynthesis is performed in both the craniocaudal and mediolateral oblique views along with computer-aided detection (CAD). FINDINGS: The breasts are heterogeneously dense, which may obscure small masses (ACR BI-RADS breast composition Category c). There are no significant masses, abnormal calcifications, or other abnormalities. MM/MM tomosynthesis screening BI IMPRESSION: No mammographic evidence of malignancy. ASSESSMENT: BI-RADS BI-RADS 1 - Negative RECOMMENDATION: Routine annual mammography screening. 1 year F/U This examination should not preclude the clinical evaluation of a suspicious palpable abnormality. This patient's information was entered into a reminder system with a target due date for their next mammogram. Electronically signed by: Joseline Walter DO 07/24/2024 09:13 AM EST Dictated By: Joseline Walter DO Signed By: <Electronically signed by Joseline Walter DO in OV> 07/24/24 0913 DD/ 1424 TD/TT: 07/13/24 1440 Lead Manufacturing Engineer: us Jewell Name IMG BI PROCEDURES Final Result * (ABNORMAL) Lipid Panel, Standard (12/15/2023 11:23 AM EDT) Triglycerides 148 <150 mg/dL [facility] Comment:Desirable Triglyceri de: less than 150 mg/dLBorderline High Triglyceride 150-199 mg/dLHigh Triglyceride: 200-499 mg/dLVery High Triglyceride: greater than or equal to 5OO mg/dL Cholesterol 194 <200 mg/dL [facility] Comment:Desirable Cholestero l: less than 200 mg/dLBorderline High Cholesterol: 200-239 mg/dLHigh Cholesterol: greater than 239 mg/dL LDL Cholesterol Calculated 108(H) <100 mg/dL [facility] Comment:Desirable LDL: less than 100 mg/dLNear Optimal/Above Optimal LDL: 110- 129 mg/dLBorderline High LDL: 130-159 mg/dLHigh LDL: 160-189 mg/dLVery High LDL: greater than or equal to 190 mg/dL HDL Cholesterol 57 >40 mg/dL [facility] Comment:Desirable HDL: great er than 40 mg/dL Note: This HDL assay may give artificially low results in patients with liver disease. Blood Venous blood specimen / Unknown 12/15/2023 11:23 AM EDT 12/15/2023 1:16 PM EDT us Best Marcelo MD LAB BLOOD ORDERABLES Final Resul t [facility] [address] [place] [address] [phone] * HEPATITIS C AB W/REFL TO HCV RNA, QN, PCR (07/14/2022 3:30 PM EST) HEPATITIS C ANTIBODY NON-REACTI VE NON-REACT FABIANA CONVERTED LEGACY LABS INDEX 0.02 <1.00 CONVERTED [facility] Comment: ?? HCV antibody was non-reactive. There is no laboratory ?? evidence of HCV infection. ?? In most cases, no further action is required. However, if recent HCV exposure is suspected, a test for HCV RNA (test code 10463) is suggested. ?? For additional information please refer to http://Lola [email or web address]/faq/EIB77c4 (This link is being provided for informational/ educational purposes only.) ?? 07/14/2022 3:30 PM EST Michell Epperson CNM HISTORICAL/NON ORDERABLE LABS Final Result CONVERTED [facility] * THINPREP TIS PAP AND HPV mRNA E6/E7, CT/NG, TRICH (07/14/2022 3:03 PM EST) Chlamydia trachomatis RNA, TMA, Urogenital NOT DETECTED NOT DETECTED CONVERTED [facility] Clinical Information: NIL NEG 2014 CONVERTED [facility] COMMENT SEE COMMENT MISHAE D [facility] Comment: The analytical performance characteristics of this assay, when used to test SurePath(TM) specimens have been determined by [facility]. The modifications have not been cleared or approved by the FDA. This assay has been validated pursuant to the CLIA regulations and is used for clinical purposes. ?? For additional information, please refer to [email or web address] [email or web address]/faq/FPG679 (This link is being provided for information/ educational purposes only.) ?? COMMENT SEE COMMENT TINA D [facility] Environmental Comment: EXPLANATORY NOTE: ? The Pap is a screening test for cervical cancer. It is ?? not a diagnostic test and is subject to false negative ?? and false positive results. It is most reliable when a ?? satisfactory sample, regularly obtained, is submitted ?? with relevant clinical findings and history, and when ?? the Pap result is evaluated along with historic and ?? current clinical information. ?? COMMENT: This Pap test has been evaluated with computer assisted technology. CONVERTED [facility] Office Services Specialist: SEE COMMENT CONVERTED [facility] Comment: MSM, CT(ASCP) CT screening location: [address] ??[id number] HPV nRNA E6/E7 Not Detected Not Detected CONVERTED [facility] Comment: Methodology: Compliance Quality Performance Analyst-Mediated Amplification This assay detects E6/E7 viral messenger RNA (mRNA) from 14 high-risk HPV types (16,18,31,33,35,39,45,51,52,56,58,59,66,68). ? Cervical sources are required for HPV testing. If a vaginal source from a patient who has had a total hysterectomy with removal of cervix was ?? submitted, please contact the testing laboratory for alternative testing options. ?? For additional information, please refer to http://Lola [email or web address]/faq/LUC538i6 (This link if provided for information/ educational purposes only.) Interpretation/Re sult: Negative for intraepithelial lesion or malignancy. CONVERTED [facility]GAC[facility] LAB[facility] LMP: 50 YR CONVERTED [facility] Neisseria gonorrhoeae RNA, TMA, Urogenital NOT DETECTED NOT DETECTED CONVERTED [facility] Prev. BX: NONE GIVEN CONVERTED [facility] Prev. PAP: NONE GIVEN CONVERTE D [facility] SOURCE: None given CON[facility]ED [facility] Statement Of Adequacy: SEE COMMENT [facility] Comment: Satisfactory for evaluation. Endocervical/transformation zone component present. Trichomonas vaginalis, QL, TMA, PAP Vial NOT DETECTED NOT DETECTED [facility] Comment: The analytical performance characteristics of this assay have been determined by [facility]. The modifications have not been cleared or approved by the FDA. This assay has been validated pursuant to the CLIA regulations and is used for clinical purposes. ?? For additional information, please refer to [email or web address]/Trichomonastma (This link is being provided for information/ educational purposes only.) ?? 07/14/2022 3:03 PM EST Michell Epperson CNM LAB PATHOLOGY ORDERABLES Final Result CONVERTED [facility] from Last 3 Months or Most Recently Relevant to Health Maintenance Insurance [place]IC[place] * Guarantor: Cathy Humphreys Account Type Relation to Patient Date of Phone Billing Address Personal/Family Self [address] Perri Turpin [place] Care Teams Arcade Attendant Relationship Specialty Start Date End Date Name, MD Best [address] [place] [address] AIDAN Turpin [address] PCP - General Family Medicine 11/07/15
--- OUTSIDE RECORDS SUMMARY | 2024-10-08 14:17 | XMS_ITS | Encounter Summary ---
Author Organization [facility] [employer] [facility] Address [address] 7t h Floor [place] [id number] Care Team Providers Care Recruiter Account Manager Name Role Phone Name, Best ROCA Primary Care Provider [phone] Encounter Details Date Type Department Care Team (Latest Contact Info) Description 01/01/2021 Abstract [facility] CONVERSIONS Dental, Provider, DDS Social History Tobacco Use Types Packs/Day Years Used Date Smoking Tobacco: Never Assessed Comments Unknown Sex and Gender Information Value [...] Description 11/06/2024 1:00 PM EST Office Visit [facility] MEDICINE [address] [place] [address] Name, MD Best [address] [place] [address] documented as of this encounter Visit Diagnoses Not on filedocumented in this encounter Care Teams Recruiter Account Manager Relationship Specialty Start Date End Date Name, MD Best [address] [place] [address] PCP - General Family Medicine 11/07/15 documented as of this encounter
--- OUTSIDE RECORDS SUMMARY | 2024-10-08 14:17 | XMS_ITS | Encounter Summary ---
Author Organization [employer] Address [address] 7t [place] [address] Care Team Providers Care Manager Laundry Name Role Phone Name, Best ROCA Primary Care Provider [phone] Reason for Visit * Reason Comments Med Refill Encounter Details Date Type Department Care Team ([facility] st Contact Info) Description 08/20/2023 Refill [facility] [address] [place], [place] [phone] Jason Lopes FNP Viral URI Social History Tobacco Use Types Packs/Day Years [...] Description 11/06/2024 1:00 PM EST Office Visit [facility] [address] [place] [address] NameBest MD [address] [place] [address] documented as of this encounter Visit Diagnoses Diagnosis Viral URI Acute upper respiratory infections of unspecified site documented in this encounter Additional Health Concerns Assessment Noted Time PHQ-9 Depression Total Score: 0 12/30/19 23 9:03 AM EDT documented as of this encounter Care Teams Manager Laundry Relationship Specialty Start Date End Date NameBest MD [address] [place] [phone] PCP - General Family Medicine 11/07/15 documented as of this encounter
--- OUTSIDE RECORDS SUMMARY | 2024-10-08 14:17 | XMS_ITS | Encounter Summary ---
Author Organization [facility] [employer] [facility] Address [address] [facility] 7t [place] [address] Care Team Providers Care Student Activities Director Name Role Phone Name, Best ROCA Primary Care Provider [phone] Encounter Details Date Type Department Care Team (Latest Contact Info) Description 01/04/2022 Abstract [facility] CONVERSIONS Dental, Provider, DDS Social History Tobacco [...] Description 11/06/2024 1:00 PM EST Office Visit [facility] MEDICINE [address] [place] [address] Name, MD Best [address] [place] [address] documented as of this encounter Visit Diagnoses Not on filedocumented in this encounter Care Teams Student Activities Director Relationship Specialty Start Date End Date Name, MD Best [address] [place] [address] PCP - General Family Medicine 11/07/15 documented as of this encounter
--- OUTSIDE RECORDS SUMMARY | 2024-10-08 14:17 | XMS_ITS | Encounter Summary ---
Author Organization [employer] [facility] Address [address] [place] [id number] Care Team Providers Care Transportation Security Officer Name Role Phone Name, Best ROCA Primary Care Provider [phone] Encounter Details Date Type Department Care Team (Latest Contact Info) Description 10/19/2018 Abstract [facility] CONVERSIONS Dental, Provider, DDS Social History [...] Description 11/06/2024 1:00 PM EST Office Visit [facility] MEDICINE [address] [place] [address] Name, MD Best [address] [place] [address] documented as of this encounter Visit Diagnoses Not on filedocumented in this encounter Care Teams Transportation Security Officer Relationship Specialty Start Date End Date Name, MD Best [address] [place] [address] PCP - General Family Medicine 11/07/15 documented as of this encounter
--- OUTSIDE RECORDS SUMMARY | 2024-10-08 14:17 | XMS_ITS | Encounter Summary ---
Author Organization [employer] Address [address] [facility] 7t [place] [address] Care Team Providers Care Care Rep Name Role Phone Name, Best ROCA Primary Care Provider [phone] Reason for Visit * Reason Onset Date Comments Appointment Request 06/12/2024 Encounter Details Date Type Department Care Team ([facility] st Contact Info) Description 06/12/2024 Telephone [facility] MED[facility] [address] [place], [place] [phone] Name, MD Best [address] [place], [place] [phone] Appointment Request Social History Tobacco Use Types Packs/Day Years [...] encounter Miscellaneous Notes * Telephone Encounter - Misty Freedmane - 06/12/2024 11:14 AM EDT Tc from pt requesting to r/s today's follow up. No availability. Audio Visual Equipment Rental Clerk advised will send a message. Contact pt at [phone] documented in this encounter Plan of Treatment Upcoming Encounters Date Type Department Care Team (Late st Contact Info) Description 11/06/2024 1:00 PM EST Office Visit [facility] MED[facility]INE [address] [place] [address] Name, MD Best [address] [place] [address] documented as of this encounter Visit Diagnoses Not on filedocumented in this encounter Additional Health Concerns Assessment Noted Time PHQ-9 Depression Total Score: 0 12/30/19 23 9:03 AM EDT documented as of this encounter Care Teams Care Rep Relationship Specialty Start Date End Date Name, MD Best [address] [place] [address] PCP - General Family Medicine 11/07/15 documented as of this encounter
== END 2024-10-08 13:48 | disposition home or self-care (01) ==
PROVIDERS: PCP Internal Medicine Geriatric Medicine; Visit Provider Orthopaedic Surgery
DX: M17.11 Unilateral primary osteoarthritis, right knee (principal)
CPT/HCPCS: 20610

== ENCOUNTER → 2024-10-08 12:59 | Outpatient (BNVA) | payer MEDICAID, SELFPAY | PROVIDERS: PCP Internal Medicine Geriatric Medicine; Visit Provider Orthopaedic Surgery | DX: M17.11 Unilateral primary osteoarthritis, right knee (principal) | CPT/HCPCS: 20610; J7323 ==

== ENCOUNTER 2024-10-09 | Outpatient (REF) | payer MEDICARE, SELFPAY ==
[2024-10-05 09:29] VITALS: BMI 35.5
--- NOTE | ~2024-10-09 | XR_ITS ---
EXAMINATION: XR SHOULDER 2 OR MORE VIEWS RIGHT HISTORY: acute right shoulder pain COMPARISON: There are no prior studies available for comparison. FINDINGS: Four views of the right shoulder are submitted. Osseous mineralization is normal. There is no fracture or dislocation. The glenohumeral joint is maintained. There is mild degenerative change of the AC joint. The soft tissues are unremarkable. 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 Electronically signed by: Alejo Bravo MD 10/09/2024 09:47 AM PEGGY MAJOR
--- OUTSIDE RECORDS SUMMARY | 2025-02-26 14:20 | XMS_ITS | Encounter Summary ---
Author Organization [employer] [facility] Address [address] [place] [id number] Care Team Providers Care Automotive Electrical Fitter Name Role Phone Name, Best ROCA Primary Care Provider [phone] Encounter Details Date Type Department Care Team (Latest Contact Info) Description 01/01/2021 Abstract [facility] Dental, Provider, DDS Social History Tobacco Use Types Packs/Day Years Used Date Smoking Tobacco: Never Assessed Comments Unknown Sex and Gender Information Value Date Recorded Sex Assigned at Female 07/05/2022 10:14 AM EDT Legal Sex Female 10:14 AM EDT Gender Identity Female 07/05/2022 10:14 AM EDT Sexual Orientation Straight 07/05/2022 10 :14 AM EDT documented as of this encounter Plan of Treatment Not on file documented as of this encounter Visit Diagnoses Not on filedocumented in this encounter Care Teams Automotive Electrical Fitter Relationship Specialty Start Date End Date Name, MD Best [address] [place] [address] PCP - General Family Medicine 11/07/15 documented as of this encounter
== END 2024-10-09 00:01 | disposition home or self-care (01) ==
LOC: HO.XRAY
PROVIDERS: PCP Internal Medicine Geriatric Medicine; Visit Provider Family Medicine
DX: M25.511 Pain in right shoulder (principal)
CPT/HCPCS: 73030

== ENCOUNTER → 2024-10-09 09:10 | Outpatient (BNV) | payer MEDICARE, MEDICAID, SELFPAY | PROVIDERS: PCP Internal Medicine Geriatric Medicine; Visit Provider Radiology Diagnostic Radiology | DX: M25.511 Pain in right shoulder (principal) | CPT/HCPCS: 73030 ==

== ENCOUNTER 2024-10-24 12:28 | Outpatient (REF) | payer MEDICARE, SELFPAY ==
--- NOTE | ~2024-10-24 | US_ITS ---
CLINICAL HISTORY: N20.0 - Calculus of kidney US Renal Comparison: None Findings: Right kidney normal size and echotexture, 11 cm length. Left kidney normal size and echotexture, 9.9cm length. Query duplicated right renal collecting system. Otherwise unremarkable kidneys without evidence of stone or hydronephrosis. IMPRESSION: 1. Normal kidneys. This document has been electronically signed by: Evelia Smith MD on 10/25/2024 12:01:27
--- OUTSIDE RECORDS SUMMARY | 2024-10-24 12:48 | XMS_ITS | Encounter Summary ---
Author Organization [employer] Address [address] 7[address] [place] [address] Care Team Providers Care Physical Therapy Aides Teacher Name Role Phone Name, Best ROCA Primary Care Provider [phone] Reason for Visit * Reason Comments Med Refill Encounter Details Date Type Department Care Team ([facility] st Contact Info) Description 08/20/2023 Refill [facility] [address] [place], [place] [phone] Jason Lopes FNP Viral URI Social History [...] Visit [facility] MEDICINE [address] [place] [address] NameBest MD [address] [place] [address] documented as of this encounter Visit Diagnoses Diagnosis Viral URI Acute upper respiratory infections of unspecified site documented in this encounter Additional Health Concerns Assessment Noted Time PHQ-9 Depression Total Score: 0 12/30/19 23 9:03 AM EDT documented as of this encounter Care Teams Physical Therapy Aides Teacher Relationship Specialty Start Date End Date NameBest MD [address] [place] [address] PCP - General Family Medicine 11/07/15 documented as of this encounter
--- OUTSIDE RECORDS SUMMARY | 2024-10-24 12:48 | XMS_ITS | Encounter Summary ---
Author Organization [facility] [employer] [facility] Address [address] [facility] 7t [place] [address] Care Team Providers Care Stained Glass Joiner Name Role Phone Name, Best ROCA Primary Care Provider [phone] Encounter Details Date Type Department Care Team (Latest Contact Info) Description 01/04/2022 Abstract [facility] CONVERSIONS Dental, Provider, DDS Social History Tobacco [...] Description 11/06/2024 1:00 PM EST Office Visit [facility] MEDICINE [address] [place] [address] Name, MD Best [address] [place] [address] documented as of this encounter Visit Diagnoses Not on filedocumented in this encounter Care Teams Stained Glass Joiner Relationship Specialty Start Date End Date Name, MD Best [address] [place] [address] PCP - General Family Medicine 11/07/15 documented as of this encounter
--- OUTSIDE RECORDS SUMMARY | 2024-10-24 12:48 | XMS_ITS | Encounter Summary ---
Author Organization [employer] Address [address] [place] [address] Care Team Providers Care Sweatband Decorating Machine Operator Name Role Phone Name, Best ROCA Primary Care Provider [phone] Encounter Details Date Type Department Care Team (Late st Contact Info) Description 03/27/2024 Telephone [facility] MEDICINE [address] [place], [place] [phone] Name, MD Best [address] [place], [place] [phone] Social History Tobacco Use Types Packs/Day Years [...] PM EDT FYI T/C to pt. Through Wengo id - [id number] for below message, No answer. Not able [...] Description 11/06/2024 1:00 PM EST Office Visit [facility] MEDICINE [address] [place] [address] Name, MD Best [address] [place] [address] documented as of this encounter Visit Diagnoses Not on filedocumented in this encounter Additional Health Concerns Assessment Noted Time PHQ-9 Depression Total Score: 0 12/30/19 9:03 AM EDT documented as of this encounter Care Teams Sweatband Decorating Machine Operator Relationship Specialty Start Date End Date Name, MD Best [address] [place] [address] PCP - General Family Medicine 11/07/15 documented as of this encounter
--- OUTSIDE RECORDS SUMMARY | 2024-10-24 12:48 | XMS_ITS | Encounter Summary ---
Author Organization [facility] [employer] [facility] Address [address] [facility] 7t [place] [address] Care Team Providers Care Back Maker Name Role Phone Name, Best ROCA Primary Care Provider [phone] Encounter Details Date Type Department Care Team (Latest Contact Info) Description 01/01/2021 Abstract [facility] CONVERSIONS Dental, Provider, DDS Social History [...] Description 11/06/2024 1:00 PM EST Office Visit [facility] MEDICINE [address] [place] [address] Name, MD Best [address] [place] [address] documented as of this encounter Visit Diagnoses Not on filedocumented in this encounter Care Teams Back Maker Relationship Specialty Start Date End Date Name, MD Best [address] [place] [address] PCP - General Family Medicine 11/07/15 documented as of this encounter
--- OUTSIDE RECORDS SUMMARY | 2024-10-24 12:48 | XMS_ITS | Encounter Summary ---
Author Organization [employer] Address [address] [facility] 7t [place] [address] Care Team Providers Care Industrial Maintenance Repairer Name Role Phone Name, Best ROCA Primary Care Provider [phone] Reason for Visit * Reason Onset Date Comments triage 10/19/2022 Encounter Details Date Type Department Care Team ([facility] st Contact Info) Description 10/19/2022 Telephone [facility] MEDIC[facility] [address] [place], [place] [phone] Name, MD Best [address] [place] [address] triage Social History Tobacco Use Types Packs/Day [...] question The caller accepted this outcome speaks lithuanian documented in this encounter Plan of Treatment Upcoming Encounters Date Type Department Care Team (Late st Contact Info) Description 11/06/2024 1:00 PM EST Office Visit [facility] MED[facility] [address] [place] [address] Name, MD Best [address] [place] [address] documented as of this encounter Visit Diagnoses Not on filedocumented in this encounter Care Teams Industrial Maintenance Repairer Relationship Specialty Start Date End Date Name, MD Best [address] [place] [address] PCP - General Family Medicine 11/07/15 documented as of this encounter
--- OUTSIDE RECORDS SUMMARY | 2024-10-24 12:48 | XMS_ITS | Clinical Summary ---
Author Organization [employer] Address [address] [facility] 7t [place] [address] Care Team Providers Care Overhead Garage Door Hanger Name Role Phone Name, Best ROCA Primary Care Provider [phone] Allergies Active Allergy Reactions Criticality Noted Date [...] 18 g 1 024 Active sodium chloride ([place] Nasal [place]) 0.65 % nasal sprayIndications: Mild intermittent asthma [...] BY MOUTH EVERY DAY 90 tablet 1 Active fluticasone (Flonase) 50 MCG/ACT nasal sprayIndications: Mild intermittent asthma with exacerbation SPRAY 1 SPRAY INTO EACH NOSTRIL ONCE A DAY 48 mL Active atorvastatin (Lipitor) 20 MG tabletIndications :Hyperlipidemia, unspecified hyperlipidemia type TAKE 1 TABLET BY MOUTH EVERY DAY IN THE MORNING 90 tablet 1 025 Active Lidocaine 5 % creamIndications: Acute pain of right shoulder Apply topically bid 30 g 3 025 Active cyclobenzaprine (Flexeril) 5 MG tabletIndications :Acute pain of right shoulder 1 tab po at bedtime prn pain kazakh 20 tablet 025 Active atorvastatin (Lipitor) 20 MG tabletIndications :Hyperlipidemia, unspecified hyperlipidemia type TAKE 1 TABLET BY MOUTH EVERY DAY IN THE MORNING 90 tablet 1 024 2024 Discontinued cyclobenzaprine (Flexeril) 5 MG tablet Take 1 tablet (5 mg) by mouth 3 times daily for 10 days. 30 tablet 025 2024 Discontinued Active Problems Problem Noted Date Diagnosed Date Acute pain of right shoulder 10/09/2024 Assessment & Plan (10/09/2024 9:09 AM EST): Likely musculoskeletal. Non-focal, normal motor exam without neurological deficits. -x ray ordered -Recommend acetaminophen, lidocaine cream and muscle relaxer prn. Physical therapy referral offered and ortho referral offered but pt declines at this time. She will call if she changes her mind. -Lifting precaution sand stretching reviewed. -ER precaution discussed. Subacute maxillary sinusitis 08/06/2024 Assessment & Plan [...] Encounters Date Type Department Care Team Description 10/09/2024 8:40 AM EST Office Visit [facility] [address] [place] [phone] Rosa Starkey MD Acute pain of right shoulder (Primary Dx); Radiculopathy, unspecified spinal region 09/24/2024 Refill [facility] [address] [place], [place] [phone] Name, MD Best Hyperlipidemia, unspecified hyperlipidemia type 09/12/2024 6:20 PM EST Office Visit [facility] [address] [place], [place] [phone] Laura Don NP Cough in adult patient 09/12/2024 Travel 09/03/2024 Telephone [facility] [address] [place] [address] [phone] Rochelle Gaona MA jan recalls 08/27/2024 Orders Only [facility] [address] [place] [address] 34972 NameBest MD Chronic pain of right knee (Primary Dx); Old peripheral tear of meniscus of right knee, unspecified meniscus 08/12/2024 Refill [facility] [address] [place] [address] [phone] Best Marcelo MD Mild intermittent asthma with exacerbation 08/11/2024 9:00 AM EST Office Visit [facility] [address] [place] [address] [phone] NameBest MD Chronic pain of right knee (Primary Dx) 08/11/2024 Travel 08/10/2024 Telephone [facility] [address] [place] [address] [phone] Best Marcelo MD Nurse Triage 08/06/2024 2:40 PM EST Office Visit [facility] [address] [place] [address] [phone] Suzanne Frazier MD Subacute maxillary sinusitis (Primary Dx); Mild intermittent asthma with exacerbation; Acute cough 08/06/2024 Travel 08/01/2024 Telephone [facility] [address] [place] [address] [phone] Best Marcelo MD Nurse Triage 08/01/2024 Refill [facility] [address] [place] [address] 47868 Best Marcelo MD Heartburn; Mild intermittent asthma with exacerbation 08/01/2024 Refill [facility] [address] [place] [address] [phone] Suzanne Frazier MD Mild intermittent asthma with exacerbation from Last 3 Months Immunizations Name Administration Dates Next Due Hep B, adult 03/06/2013,09/27/2012,08/16/2012 Influenza Injectable Quadriv alant Preservative Free IIV4 MDCK 09/03/2023,05/22/2022,05/21/2018 Influenza injectable quadriv alent IIV4 with preservative 05/29/2019 Influenza injectable quadriv alent preservative free 05/19/2021,05/24/2020,05/02/2017,06/04,05/20/2016,04/29/2015 Influenza, IIV3, injectable 05/24/2020,0 05/29/2019,05/21/2018,05/02,06/04/2016,05/20/2016,04/29/2015 ,07/16/2011 Influenza, Injectable, MDCK, preservative free 05/12/2024 Influenza, Split (incl. nitin fied surface antigen) 05/18/2013 Moderna Covid-19 Vaccine 12+ 10/01/2021,09/28/19 Pneumococcal Conjugate PCV 20 12/29/2022 Pneumococcal Polysaccharide [...] Sign Reading Time Taken Comments Blood Pressure 133/72 10/09/2024 8:51 AM EST Pulse 79 10/09/2024 8:51 AM EST Temperature 36.7 ??C (98.1 ??F) 10/09/2024 8:51 AM ES T Respiratory Rate 18 10/09/2024 8:51 AM EST Oxygen Saturation 97% 10/09/2024 8:51 AM EST Inhaled Oxygen Concentration - - Weight 85.7 kg (189 lb) 10/09/2024 8:51 AM EST Height 152.4 cm (5') 08/11/2024 8:55 AM EST Body Mass Index 36.91 08/11/2024 8:55 AM EST Plan of Treatment Upcoming Encounters Date Type Department Care Team (Late st Contact Info) Description 11/06/2024 1:00 PM EST Office Visit [facility] [address] [place] [phone] Name, MD Best [address] [place] [phone] Health Maintenance Due Date Last Done Comments [...] 06/22/2025 06/22/2024 Depression Screening 06/22/2025 06/22/2024, 06/22/20 Mammogram 07/13/2025 07/13/2024, 11/2022, 06/07/2023, Additional history exists Pap Smear 07/14/2025 07/14/2022 Tobacco Screening 10/09/2025 10/09/2024 DTaP/Tdap/Td Vaccines (2 - Td or Tdap) [...] Procedure Name Priority Date/Time Associated Diagnosis Comments XR SHOULDER 2+ VIEWS RIGHT Routine 10/09/2024 9:10 AM EST Acute pain of right shoulder POCT INFLUENZA B (ID NOW RAPID MOLECULAR) [...] ESTABLISHED PATIENT Routine 01/04/2022 12:00 AM EDT INTRAORAL - COMPLETE SERIES OF RADIOGRAPHIC IMAGES Routine 01/01/2021 12:00 AM EDT from Last 3 Months or Most Recently Relevant to Health Maintenance Results * XR Shoulder 2+ Views Right (10/09/2024 9:10 AM EST) Anatomical Region Laterality Modality Upper Extremities, Shoulder Right Radi ographic Imaging 10/09/2024 9:10 AM EST Narrative 10/09/2024 9:50 AM EST ? [facility] ?[address] ?[place] [address] ?XRay Report ? Signed ? Patient: Cathy Humphreys ?MR#: ?? [id number] ? : 1960 ?Acct:[id number] ? Age/Sex: 64 / F ?ADM Date: 10/05/24 ? Loc: HO.SSS ? Attending Dr: Tiffani Portillo MD ? Ordering Physician: Rosa Starkey MD ?? Date of Service: 10/09/24 ?? Procedure(s): XR shoulder RT min 2V ?? Accession Number(s): [id number] ? cc: Rosa Starkey MD; Best Marcelo MD ? EXAMINATION: ??XR SHOULDER 2 OR MORE VIEWS RIGHT ? HISTORY: acute right shoulder pain ? COMPARISON: There are no prior studies available for comparison. ? FINDINGS: ? Four views of the right shoulder are submitted. ??Osseous mineralization ?? is normal. ??There is no fracture or dislocation. ??The glenohumeral ?? joint is maintained. There is mild degenerative change of the AC joint. ?? The soft tissues are unremarkable. ? XR/XR shoulder RT min 2V ?? IMPRESSION: ? 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 ? Electronically signed by: ??Alejo Bravo MD ??10/09/2024 09:47 AM EST ?? RP ? Dictated By: ?Alejo Bravo MD ? Signed By: ?<Electronically signed by Alejo Bravo MD in OV> ?10/09/24 0947 ? DD/ 0910 ? TD/TT: 10/09/24 0930 ? Records Management Engineer: ? Procedure Note Donzehrater, Image - 10/09/[address] [address] XRay Report Signed Patient: Adolfo HumphreysR#: [id number] : 1960Acct:[id number] Age/Sex: 64 / FADM Date: 10/05/24 Loc: HO.SSS Attending Dr: Tiffani Portillo MD Ordering Physician: Rosa Starkey MD Date of Service: 10/09/24 Procedure(s): XR shoulder RT min 2V Accession Number(s): [id number] cc: Rosa Starkey MD; Name,Best ROCA EXAMINATION: XR SHOULDER 2 OR MORE VIEWS RIGHT HISTORY: acute right shoulder pain COMPARISON: There are no prior studies available for comparison. FINDINGS: Four views of the right shoulder are submitted. Osseous mineralization is normal. There is no fracture or dislocation. The glenohumeral joint is maintained. There is mild degenerative change of the AC joint. The soft tissues are unremarkable. 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 Electronically signed by: Alejo Bravo MD 10/09/2024 09:47 AM EST Dictated By: Alejo Bravo MD Signed By: <Electronically signed by Alejo Bravo MD in OV> 10/09/2447 DD/ 0910 TD/TT: 10/09/24929 Records Management Engineer: Rosa Starkey MD IMG XR PROCEDURES Edited R esult - Final * Influenza B (ID NOW Rapid Molecular) (09/12/2024 6:22 PM EST) Only the most recent of2 resultswithin the time period is included. Influenza B Negative Negative, Indeterminate [facility] Swab 09/12/2024 6:22 PM EST us Laura Herreram SAMPLER AND TEST PREPARER POINT OF CARE TEST ENTER/EDIT O RDERABLES Final Result Performing Organization Address City/[facility]/ZIP Co de Phone Number [facility] [address] [place] [phone] * Influenza A (ID NOW Rapid Molecular) (09/12/2024 6:21 PM EST) Only the most recent of2 resultswithin the time period is included. [facility] Influenza A Negative Negative, Indeterminate [facility] Swab 09/12/2024 6:21 PM EST Laura Herrera SAMPLER AND TEST PREPARER POINT OF CARE TEST ENTER/EDIT O RDERABLES Final Result Performing Organization Address [facility] Co de Phone Number [facility] [address] [place] [phone] * POCT rapid strep A manually resulted (09/12/2024 6:15 PM EST) [facility] Rapid Strep A Screen Negative Negative, None Detected Swab 09/12/2024 6:15 PM EST us Laura Herrera SAMPLER AND TEST PREPARER POINT OF CARE TEST ENTER/EDIT O RDERABLES Final Result * POCT Rapid COVID Ag (09/12/2024 6:15 PM EST) [facility] Rapid COVID Ag Negative Swab 09/12/2024 6:15 PM EST us Sanchez Appram SAMPLER AND TEST PREPARER POINT OF CARE TEST ENTER/EDIT O RDERABLES Final Result * MR Knee w/o Contrast Right (08/19/2024 5:45 PM EST) Anatomical Region Laterality Modality Magnetic Resonan ce 08/19/2024 5:45 PM EST Narrative 08/23/2024 3:39 PM EST ? [facility] [facility] ?[address] ?[place] [address] ? Magnetic Resonance Report ? Signed ? Patient: Fuller Melguizo,Cathy ?MR#: ?? [id number] ? : 1960 ?Acct:[id number] ? Age/Sex: 63 / F ?ADM Date: 08/19/24 ? Loc: HO.MRI ? Attending Dr: Best Marcelo MD ? Ordering Physician: Best Marcelo MD ?? Date of Service: 08/19/24 ?? Procedure(s): MR knee RT wo con ?? Accession Number(s): [id number] ? cc: Best Marcelo MD ? EXAMINATION: [...] Jose R Joy MD in OV> ? 08/23/24 1537 ? DD/ 1745 ? TD/TT: 08/19/24 1824 ? Records Management Engineer: DM ? Procedure Note Donotnelsoninterpreter, Image - 08/23/2024 [place] [address] Magnetic Resonance Report Signed Patient: Gwen Humphreys#: [id number] : 1960Acct:[id number] Age/Sex: 63 / FADM Date: 08/19/24 Loc: HO.MRI Attending Dr: Best Marcelo MD Ordering Physician: Best Marcelo MD Date of Service: 08/19/24 Procedure(s): MR knee RT wo con Accession Number(s): [id number] cc: Best Marcelo MD EXAMINATION: MR KNEE [...] Joy MD Signed By: <Electronically signed by Jose R Joy MD inOV> 08/23/24 1537 DD/ 1745 TD/TT: 08/19/24 1824 Records Management Engineer: SHYANNE us Bets Marcelo MD IMG MRI PROCEDURES Final Result [...] EST Narrative 07/24/2024 9:16 AM EST ? [facility] [place] ? [address] ?[place] [address] ? Mammography Report ? Signed ? Patient: Fuller Melguizo,Cathy ?MR#: ?? [id number] ? : 1960 ?Acct:[id number] ? Age/Sex: 63 / F ?ADM Date: 11/08/24 ? Loc: HO.MAMMO ? Attending Dr: Best Marcelo MD ? Ordering Physician: Best Marcelo MD ?Results: 1Negative ? Date of Service: 07/13/24 ?Follow Up: 1 Year From Orig ?? inal Mammogram ? Procedure(s): MM tomosynthesis screening BI ?? Accession Number(s): [id number] ? cc: Davian,Best ROCA ? EXAMINATION: ?? [...] in OV> ? 07/24/24 0913 ? DD/ [facility] ? TD/TT: 07/13/24 1440 ? Records Management Engineer: ? Procedure Note Donotuseinterpreter, Image - 07/24/2024 [facility] [address] [place] [address] Mammography Report Signed Patient: Gwen Humphreys#: [id number] : 1960Acct:[id number] Age/Sex: 63 / FADM Date: 07/13/24 Loc: HO.MAMMO Attending Dr: Best Marcelo MD Ordering Physician: Best Marcelo MDResults: 1Negative Date of Service: 07/13/24Follow Up: 1 Year From Orig inal Mammogram Procedure(s): MM tomosynthesis screening BI Accession Number(s): [id number] cc: Best Marcelo MD EXAMINATION: MM SCREENING [...] DO Signed By: <Electronically signed by Joseline Walter, DO in OV> 07/24/24 0913 DD/ 1424 TD/TT: 07/13/24 1440 Records Management Engineer: us Best Marcelo MD IMG BI PROCEDURES Final Result * (ABNORMAL) Lipid Panel, Standard (12/15/2023 11:23 AM EDT) Triglycerides 148 <150 mg/dL [facility] Comment:Desirable Triglyceri de: less than 150 mg/dLBorderline High Triglyceride 150-199 mg/dLHigh Triglyceride: 200-499 mg/dLVery High Triglyceride: greater than or equal to 5OO mg/dL Cholesterol 194 <200 mg/dL [facility] Comment:Desirable Cholestero l: less than 200 mg/dLBorderline High Cholesterol: 200-239 mg/dLHigh Cholesterol: greater than 239 mg/dL LDL Cholesterol Calculated 108(H) <100 mg/dL [facility] Comment:Desirable LDL: less than 100 mg/dLNear Optimal/Above Optimal LDL: 110- 129 mg/dLBorderline High LDL: 130-159 mg/dLHigh LDL: 160-189 mg/dLVery High LDL: greater than or equal to 190 mg/dL HDL Cholesterol 57 >40 mg/dL [facility] Comment:Desirable HDL: great er than 40 mg/dL Note: This HDL assay may give artificially low results in patients with liver disease. Blood Venous blood specimen / Unknown 12/15/2023 11:23 AM EDT 12/15/2023 1:16 PM EDT us Best Marcelo MD LAB BLOOD ORDERABLES Final Resul t [facility] [address] [place], [place] [phone] * HEPATITIS C AB W/REFL TO [...] a test for HCV RNA (test code 12089) is suggested. ?? For additional information please refer to http://[employer].Phone2Action/faq/TAU86t2 (This link is being provided for informational/ educational purposes only.) ?? 07/14/2022 3:30 PM EST us Michell Epperson CNM HISTORICAL/NON ORDERABLE LABS Final Result [facility] [employer] [facility] * THINPREP TIS PAP AND HPV mRNA E6/E7, CT/NG, TRICH (07/14/2022 3:03 PM EST) Chlamydia trachomatis RNA, TMA, Urogenital NOT DETECTED NOT DETECTED [facility]VERT[facility] [facility] Clinical Information: NIL NEG 2014 CONVERTED [facility] COMMENT SEE COMMENT TINA D [facility] Comment: The analytical performance characteristics of this assay, when used to test SurePath(TM) specimens have been determined by [employer]. The modifications have not been cleared or approved by the FDA. This assay has been validated pursuant to the CLIA regulations and is used for clinical purposes. ?? For additional information, please refer to https://[employer].Phone[employer]Action/faq/ZWY141 (This link is being provided for information/ educational purposes only.) ?? COMMENT SEE COMMENT TINA Montgomery [employer] Comment: EXPLANATORY NOTE: ? The Pap is [...] been evaluated with computer assisted technology. CONVERTED [facility] Automatic Quilling Machine Operator: SEE COMMENT [employer] (RIS) Comment: MSM, CT(ASCP) CT screening location: [address] ??[address] HPV nRNA E6/E7 Not Detected Not Detected CONVERTED [facility]GACY LABS Comment: Methodology: Ice Cream Machine Operator-Mediated Amplification This assay detects E6/E7 viral messenger RNA (mRNA) from 14 high-risk HPV types (16,18,31,33,35,39,45,51,52,56,58,59,66,68). ? Cervical sources are required for HPV testing. If a vaginal source from a patient who has had a total hysterectomy with removal of cervix was ?? submitted, please contact the testing laboratory for alternative testing options. ?? For additional information, please refer to http://[employer].Phone2Action/faq/SOY304m0 (This link if provided for information/ educational [...] of this assay have been determined by [employer]. The modifications have not been cleared or approved by the FDA. This assay has been validated pursuant to the CLIA regulations and is used for clinical purposes. ?? For additional information, please refer to http://[employer].Phone[employer]Action/ faq/Trichomonastma (This link is being provided for information/ educational purposes only.) ?? 07/14/2022 3:03 PM EST Michell Epperson CNM LAB PATHOLOGY ORDERABLES Final Result CONVERTED [facility]GACY LABS from Last 3 Months or Most Recently Relevant to Health Maintenance Insurance [facility] STANDARD [address] [place] DENT[place]-[facility] MEDICAID STAND ADULT Care Teams Overhead Garage Door Hanger Relationship Specialty Start Date End Date Name, MD Best [address] [place] [phone] PCP - General Family Medicine 11/07/15
--- OUTSIDE RECORDS SUMMARY | 2024-10-24 12:48 | XMS_ITS | Encounter Summary ---
Author Organization [employer] Address [address] [facility] 7t [place] [address] Care Team Providers Care Document Control Assistant Name Role Phone Name, Best ROCA Primary Care Provider [phone] Reason for Visit * Reason Onset Date Comments Appointment Request 06/12/2024 Encounter Details Date Type Department Care Team ([facility] st Contact Info) Description 06/12/2024 Telephone [facility] [address] [place], [place] [phone] Name, MD Best [address] [place], [place] [phone] Appointment Request Social History Tobacco Use Types [...] to r/s today's follow up. No availability. Casting Room Helper advised will send a message. Contact pt at [phone] documented in this encounter Plan of Treatment Upcoming Encounters Date Type Department Care Team (Late st Contact Info) Description 11/06/2024 1:00 PM EST Office Visit [facility] [address] [place] [address] Name, MD Best [address] [place] [address] documented as of this encounter Visit Diagnoses Not on filedocumented in this encounter Additional Health Concerns Assessment Noted Time PHQ-9 Depression Total Score: 0 12/30/19 23 9:03 AM EDT documented as of this encounter Care Teams Document Control Assistant Relationship Specialty Start Date End Date Name, MD Best [address] [place] [address] PCP - General Family Medicine 11/07/15 documented as of this encounter
--- OUTSIDE RECORDS SUMMARY | 2024-10-24 12:48 | XMS_ITS | Encounter Summary ---
Author Organization [employer] Address [address] [facility] 7t [place] [address] Care Team Providers Care Junior Copywriter Name Role Phone Name, Best ROCA Primary Care Provider [phone] Reason for Visit * Reason Onset Date Comments Medication Question 07/26/2023 Encounter Details Date Type Department Care Team ([facility] st Contact Info) Description 07/26/2023 Telephone [facility] [address] [place], [place] [phone] Mikael Olivares MD [address] [place], [place] [phone] Medication Question Social History Tobacco Use Types [...] by her PCP Please contact pt at [phone] Portuguese Speaker documented in this encounter Plan of Treatment Upcoming Encounters Date Type Department Care Team (Late st Contact Info) Description 11/06/2024 1:00 PM EST Office Visit [facility] [address] [place] [phone] Name, MD Best [address] [place] [address] documented as of this encounter Visit Diagnoses Not on filedocumented in this encounter Additional Health Concerns Assessment Noted Time PHQ-9 Depression Total Score: 0 12/30/19 23 9:03 AM EDT documented as of this encounter Care Teams Junior Copywriter Relationship Specialty Start Date End Date Name, MD Best [address] [place] [phone] PCP - General Family Medicine 11/07/15 documented as of this encounter
--- OUTSIDE RECORDS SUMMARY | 2024-10-24 12:48 | XMS_ITS | Encounter Summary ---
Author Organization [employer] [facility] Address [address] [facility] 7t h Floor [place] [phone] Care Team Providers Care Machinist Mate Name Role Phone Name, Best ROCA Primary Care Provider [phone] Encounter Details Date Type Department Care Team (Latest Contact Info) Description 10/19/2018 Abstract [facility] CONVERSIONS Dental, Provider, DDS Social History [...] Description 11/06/2024 1:00 PM EST Office Visit [facility] [address] [place] [address] Name, MD Bset [address] [place] [address] documented as of this encounter Visit Diagnoses Not on filedocumented in this encounter Care Teams Machinist Mate Relationship Specialty Start Date End Date Name, MD Best [address] [place] [address] PCP - General Family Medicine 11/07/15 documented as of this encounter
--- OUTSIDE RECORDS SUMMARY | 2024-10-24 12:48 | XMS_ITS | Encounter Summary ---
Author Organization [employer] Address [address] [facility] 7t h Floor [place] [phone] Care Team Providers Care Caving Guide Name Role Phone Name, Best ROCA Primary Care Provider [phone] Encounter Details Date Type Department Care Team (Late Contact Info) Description 02/28/[address] [facility] [address] [place], [place] [phone] Alex Yusuf DDS [address] [place], [place] [phone] Social History Tobacco Use Types Packs/Day Years [...] Description 11/06/2024 1:00 PM EST Office Visit [facility] [address] [place], [place] [phone] Name, MD Best [address] [place], [place] [phone] documented as of this encounter Visit Diagnoses Not on filedocumented in this encounter Additional Health Concerns Assessment Noted Time PHQ-9 Depression Total Score: 0 12/30/19 23 9:03 AM EDT documented as of this encounter Care Teams Caving Guide Relationship Specialty Start Date End Date Name, MD Best [address] [place] [address] PCP - General Family Medicine 11/07/15 documented as of this encounter
--- OUTSIDE RECORDS SUMMARY | 2024-10-24 12:48 | XMS_ITS | Encounter Summary ---
Author Organization [employer] Address [address] [facility] 7t [place] [address] Care Team Providers Care Floor Steward/Stewardess Name Role Phone Name, Best ROCA Primary Care Provider Reason for Visit * Reason Comments Med Refill Encounter Details Date Type Department Care Team ([facility] st Contact Info) Description 09/24/2024 Refill [facility] [address] [place], [place] [phone] Name, MD Best [address] [place] [address] Hyperlipidemia, unspecified hyperlipidemia type Social History Tobacco [...] 1:00 PM EST Office Visit [facility] [address] [place] [phone] Name, MD Best [address] [place] [address] documented as of this encounter Visit Diagnoses Diagnosis Hyperlipidemia, unspecified hyperlipidemia type documented in this encounter Additional Health Concerns Assessment Noted Time PHQ-9 Depression Total Score: 6 06/22/20 24 1:53 PM EDT documented as of this encounter Care Teams Floor Steward/Stewardess Relationship Specialty Start Date End Date Best Marcelo MD [address] [place] [phone] PCP - General Family Medicine 11/07/15 documented as of this encounter
--- OUTSIDE RECORDS SUMMARY | 2024-10-24 12:48 | XMS_ITS | Encounter Summary ---
Author Organization [employer] [facility] Address 75 [facility] 7t [place] [address] Care Team Providers Care Coloring Room Worker Name Role Phone Name, Best ROCA Primary Care Provider [phone] Encounter Details Date Type Department Care Team (Late st Contact Info) Description 02/28/2023 Abstract [facility] ADULT DENTAL [address] [place], [place] [phone] Misyt Fitzgerald [address] [place], [place] [phone] Social History Tobacco Use Types Packs/Day Years [...] Description 11/06/2024 1:00 PM EST Office Visit [facility] MEDICINE [address] [place], [place] [phone] Name, MD Best 230 [place] [address] documented as of this encounter Visit Diagnoses Not on filedocumented in this encounter Additional Health Concerns Assessment Noted Time PHQ-9 Depression Total Score: 0 12/30/19 23 9:03 AM EDT documented as of this encounter Care Teams Coloring Room Worker Relationship Specialty Start Date End Date Name, MD Best 230 [place] [address] PCP - General Family Medicine 11/07/15 documented as of this encounter
--- OUTSIDE RECORDS SUMMARY | 2024-10-24 12:48 | XMS_ITS | Encounter Summary ---
Author Organization [employer] Address 75 [facility] 7t [place] [address] Care Team Providers Care Refrigeration Service Technician Name Role Phone Name, Best ROCA Primary Care Provider [phone] Reason for Visit * Reason Comments Arm Pain Encounter Details Date Type Department Care Team ([facility] st Contact Info) Description 10/09/2024 8:40 AM EST Office Visit [facility] 230 [place], [place] [phone] Rosa Starkey MD 230 [place] [address] Acute pain of right shoulder (Primary Dx); Radiculopathy, unspecified spinal region Social History Tobacco Use Types Packs/Day Years [...] (189 lb) 10/09/2024 8:51 AM EST Height - - Body Mass Index 36.91 08/11/2024 8:55 AM EST documented in this encounter Progress Notes * Rosa Starkey MD - 10/09/2024 8:40 AM EST Subjective Patient ID: Cathy Joyner is a 64 y.o. female who presents to walk in clinic for Arm Pain. Arm Pain The incident occurred more than 1 week ago. There was no injury mechanism. The pain is present in the upper right arm. The quality of the pain is described as aching. The pain radiates to the right neck. The pain is at a severity of 7/10. The pain is moderate. The pain has been Fluctuating since the incident. Pertinent negatives include no chest pain, muscle weakness, numbness or tingling. The symptoms are aggravated by lifting. She has tried nothing for the symptoms. The treatment provided mild relief. Review of Systems Cardiovascular: Negative for chest pain. Neurological: Negative for tingling and numbness. Objective Visit Vitals BP 133/72 (BP Location: Left arm, Patient Position: Sitting, BP Cuff Size: Adult) Pulse 79 Temp 98.1 ??F (36.7 ??C) (Temporal) Resp 18 Body mass index is 36.91 kg/m??. Physical Exam Constitutional: Comments: Pain with removing shirt. Musculoskeletal: Right shoulder: Decreased range of motion. Comments: Tenderness up entire arm and spasm. Problem List Items Addressed This Visit Acute pain of right shoulder - Primary Likely musculoskeletal. Non-focal, normal motor exam without neurological deficits. -x ray ordered -Recommend acetaminophen, lidocaine cream and muscle relaxer prn. Physical therapy referral offered and ortho referral offered but pt declines at this time. She willcall if she changes her mind. -Lifting precaution sand stretching reviewed. -ER precaution discussed. Relevant Medications Lidocaine 5 % cream cyclobenzaprine (Flexeril) 5 MG tablet Other Relevant Orders XR Shoulder 2+ Views Right Other Visit Diagnoses Radiculopathy, unspecified spinal region Addendum 10/09/2510:21 AM XR/XR shoulder RT min 2V IMPRESSION: Mild degenerative change of the AC joint. documented in this encounter Miscellaneous Notes * Assessment & Plan Note - Rosa Starkey MD - 10/09/2024 9:09 AM EST Associated Problem(s): Acute pain of right shoulder Likely musculoskeletal. Non-focal, normal motor exam without neurological deficits. -x ray ordered -Recommend acetaminophen, lidocaine cream and muscle relaxer prn. Physical therapy referral offered and ortho referral offered but pt declines at this time. She willcall if she changes her mind. -Lifting precaution sand stretching reviewed. -ER precaution discussed. documented in this encounter Plan of Treatment Upcoming Encounters Date Type Department Care Team (Late st Contact Info) Description 11/06/2024 1:00 PM EST Office Visit [facility] [address] [place] [address] Name, [place] [address] documented as of this encounter Procedures Procedure Name Priority Date/Time Associated Diagnosis Comments XR SHOULDER 2+ VIEWS RIGHT Routine 10/09/2024 9:10 AM EST Acute pain of right shoulder documented in this encounter Results * XR Shoulder 2+ Views Right (10/09/2024 9:10 AM EST) Anatomical Region Laterality Modality Upper Extremities, Shoulder Right Radi ographic Imaging 10/09/2024 9:10 AM EST Narrative 10/09/2024 9:50 AM EST ? [facility] ?[address] ?[place] [address] ?XRay Report ? Signed ? Patient: Cathy Humphreys ?MR#: ?? [id number] ? : 1960 ?Acct:[id number] ? Age/Sex: 64 / F ?ADM Date: 10/05/24 ? Loc: HO.SSS ? Attending Dr: Tiffani Portillo MD ? Ordering Physician: Rosa Starkey MD ?? Date of Service: 10/09/24 ?? Procedure(s): XR shoulder RT min 2V ?? Accession Number(s): [id number] ? cc: Rosa Starkey MD; Name,Best ROCA ? EXAMINATION: ??XR SHOULDER 2 OR MORE [...] ?10/09/24 0947 ? DD/ 0910 ? TD/TT: 10/09/2430 ? Weld Technician: ? Procedure Note Donzehrater, Image - 10/09/[address] [address] XRay Report Signed Patient: Adolfo HumphreysR#: [id number] : 1960Acct:[id number] Age/Sex: 64 / FADM Date: 10/05/24 Loc: HO.SSS Attending Dr: Tiffani Portillo MD Ordering Physician: Rosa Starkey MD Date of Service: 10/09/24 Procedure(s): XR shoulder RT min 2V Accession Number(s): [id number] cc: Rosa Starkey MD; Name,Best ROCA EXAMINATION: [...] signed by Alejo Bravo MD in OV> 10/09/24946 DD/ 9 TD/TT: 10/09/24929 Weld Technician: Rosa Starkey MD IMG XR PROCEDURES Edited R esult - Final documented in this encounter Visit Diagnoses Diagnosis Acute pain of right shoulder- Primary Radiculopathy, unspecified spinal region documented in this encounter Additional Health Concerns Assessment Noted Time PHQ-9 Depression Total Score: 6 06/22/20 24 1:53 PM EDT documented as of this encounter Care Teams Refrigeration Service Technician Relationship Specialty Start Date End Date Name, MD Best [address] [place] [address] PCP - General Family Medicine 11/07/15 documented as of this encounter
== END 2024-10-24 12:29 | disposition home or self-care (01) ==
LOC: HO.US 12:28
PROVIDERS: PCP Internal Medicine Geriatric Medicine; Visit Provider Urology
DX: N20.0 Calculus of kidney (principal)
CPT/HCPCS: 76775

== ENCOUNTER → 2024-10-24 12:29 | Outpatient (BNV) | payer MEDICARE, SELFPAY | PROVIDERS: PCP Internal Medicine Geriatric Medicine; Visit Provider Radiology Diagnostic Radiology | DX: N20.0 Calculus of kidney (principal) | CPT/HCPCS: 76775 ==

== ENCOUNTER 2024-10-26 13:02 | Outpatient (AMB) | payer MEDICARE, SELFPAY ==
--- OUTSIDE RECORDS SUMMARY | 2024-10-26 13:30 | XMS_ITS | Encounter Summary ---
Author Organization [employer] Address [address] [facility] [address] 7t [place] [address] Care Team Providers Care Sexual Health Physician Name Role Phone Name, Best ROCA Primary Care Provider [phone] Encounter Details Date Type Department Care Team (Late st Contact Info) Description 10/24/2024 Orders Only [facility] External Provider, [facility] Social History Tobacco Use Types Packs/Day Years [...] t he electric, gas, oil or water [employer] threatened to shut off services in your [...] Description 11/06/2024 1:00 PM EST Office Visit [address] [address] Best Marcelo MD [address] [place] [address] 01/21/2025 2:45 PM EDT Office Visit [address] [address] Best Marcelo MD [address] [place] [address] documented as of this encounter Procedures Procedure Name Priority Date/Time Associated Diagnosis Comments US RENAL BI Routine 10/25/2024 12:01 PM EST documented in this encounter Results * US RENAL BI (10/25/2024 12:01 PM EST) Anatomical Region Laterality Modality Abdomen Ultrasound 10/25/2024 12:0 1 PM EST Narrative 10/25/2024 12:02 PM EST ? [facility] ?[address] ?[place] [address] ? Ultrasound Report ? Signed ? Patient: Fuller Melguizo,Cathy ?MR#: ?? [id number] ? : 1960 ?Acct:[id number] ? Age/Sex: 64 / F ?ADM Date: 02/19/25 ? Loc: HO.US ? Attending Dr: Priscilla Mills MD ? Ordering Physician: Priscilla Mills MD ?? Date of Service: 10/24/24 ?? Procedure(s): US renal BI ?? Accession Number(s): [id number] ? cc: Priscilla Mills MD; Name,Best ROCA ? CLINICAL HISTORY: N20.0 - Calculus of kidney ? US Renal ? Comparison: None ? Findings: ?? Right kidney normal size and echotexture, 11 cm length. ?? Left kidney normal size and echotexture, 9.9cm length. ? Query duplicated right renal collecting system. Otherwise unremarkable ?? kidneys without evidence of stone or hydronephrosis. ? IMPRESSION: ?? 1. Normal kidneys. ? This document has been electronically signed by: Evelia Smith MD on ?? 10/25/2024 12:01:27 ? Dictated By: ?Evelia Smith MD ? Signed By: ?<Electronically signed by Evelia Smith MD in OV> ? 10/25/24 1201 ? DD/ 1201 ? TD/TT: 10/25/24 1201 ? Library Paraprofessional: ? Procedure Note Felix, Leandra - 10/25/[address] [address] Ultrasound Report Signed Patient: Gwen Humphreys#: [id number] : 1960Acct:[id number] Age/Sex: 64 / FADM Date: 10/24/24 Loc: HO.US Attending Dr: Priscilla Mills MD Ordering Physician: Priscilla Mills MD Date of Service: 10/24/24 Procedure(s): US renal BI Accession Number(s): [id number] cc: Priscilla Mills MD; Name,Best ROCA CLINICAL HISTORY: N20.0 - Calculus of kidney US Renal Comparison: None Findings: Right kidney normal size and echotexture, 11 cm length. Left kidney normal size and echotexture, 9.9cm length. Query duplicated right renal collecting system. Otherwise unremarkable kidneys without evidence of stone or hydronephrosis. IMPRESSION: 1. Normal kidneys. This document has been electronically signed by: Evelia Smith MD on 10/25/2024 12:01:27 Dictated By: Evelia Smith MD Signed By: <Electronically signed by Evelia Smith MD in OV> 10/25/24 1201 DD/ 1201 TD/TT: 10/25/24 1201 Library Paraprofessional: [facility] External Provider IMG US PROCEDURES Final Result documented in this encounter Visit Diagnoses Not on filedocumented in this encounter Additional Health Concerns Assessment Noted Time PHQ-9 Depression Total Score: 6 06/22/20 24 1:53 PM EDT documented as of this encounter Care Teams Sexual Health Physician Relationship Specialty Start Date End Date Name, MD Best 230 [place] [address] PCP - General Family Medicine 11/07/15 documented as of this encounter
--- OUTSIDE RECORDS SUMMARY | 2024-10-26 13:30 | XMS_ITS | Encounter Summary ---
Author Organization [employer] Address 75 [facility] 7t [place] [address] Care Team Providers Care Veneer Jointer Offbearer Name Role Phone Name, Best ROCA Primary Care Provider [phone] Reason for Visit * Reason Onset Date Comments Medication Question 07/26/2023 Encounter Details Date Type Department Care Team ([facility] st Contact Info) Description 07/26/2023 Telephone [facility] MEDICINE 230 [place], [place] [phone] Mikael Olivares MD 230 [place], [place] [phone] Medication Question Social History Tobacco Use Types [...] encounter Miscellaneous Notes * Telephone Encounter - Leorapaulo Andrés Webber - 07/26/2023 3:43 PM EST Tc from pt requesting a call in regards to medications prescribe for Cough: benzonatate (Tessalon Perles) 100 MG capsule and benzonatate (Tessalon) 100 MG capsule. Pt states that medication is not covered by her insurance is requesting if she could be prescribed: Meredith Tuantonioin which was prescribed before for cough by her PCP Please contact pt at [phone] Vincentian Speaker documented in this encounter Plan of Treatment Upcoming Encounters Date Type Department Care Team (Late st Contact Info) Description 11/06/2024 1:00 PM EST Office Visit [facility] [address] [place] [address] Best Marcelo MD [address] [place] [address] 01/21/2025 2:45 PM EDT Office Visit [facility] [address] [place] [address] Best Marcelo MD [address] [place] [address] documented as of this encounter Visit Diagnoses Not on filedocumented in this encounter Additional Health Concerns Assessment Noted Time PHQ-9 Depression Total Score: 0 12/30/19 23 9:03 AM EDT documented as of this encounter Care Teams Veneer Jointer Offbearer Relationship Specialty Start Date End Date Best Marcelo MD [address] [place] [address] PCP - General Family Medicine 11/07/15 documented as of this encounter
--- OUTSIDE RECORDS SUMMARY | 2024-10-26 13:30 | XMS_ITS | Encounter Summary ---
Author Organization [employer] [facility] Address [address] [facility] 7t [place] [address] Care Team Providers Care Mechanical Manager Name Role Phone Name, Best ROCA Primary Care Provider [phone] Encounter Details Date Type Department Care Team (Latest Contact Info) Description 10/19/2018 Abstract [facility] CONVERSIONS Dental, Provider, DDS Social History [...] Description 11/06/2024 1:00 PM EST Office Visit [facility] MEDICINE [address] [place] [address] Best Marcelo MD [address] [place] [address] 01/21/2025 2:45 PM EDT Office Visit [facility] [address] [place] [address] Best Marcelo MD [address] [place] [address] documented as of this encounter Visit Diagnoses Not on filedocumented in this encounter Care Teams Mechanical Manager Relationship Specialty Start Date End Date Best Marcelo MD [address] [place] [address] PCP - General Family Medicine 11/07/15 documented as of this encounter
--- OUTSIDE RECORDS SUMMARY | 2024-10-26 13:30 | XMS_ITS | Encounter Summary ---
Author Organization [facility] [employer] [facility] Address [address] [facility] 7t [place] [address] Care Team Providers Care Keypuncher Name Role Phone Name, Best ROCA Primary Care Provider [phone] Encounter Details Date Type Department Care Team (Latest Contact Info) Description 01/04/2022 Abstract [facility] CONVERSIONS Dental, Provider, DDS Social [...] Description 11/06/2024 1:00 PM EST Office Visit [facility] [address] [place] [address] Best Marcelo MD [address] [place] [address] 01/21/2025 2:45 PM EDT Office Visit [facility] [address] [place] [address] Best Marcelo MD [address] [place] [address] documented as of this encounter Visit Diagnoses Not on filedocumented in this encounter Care Teams Keypuncher Relationship Specialty Start Date End Date Best Marcelo MD [address] [place] [address] PCP - General Family Medicine 11/07/15 documented as of this encounter
--- OUTSIDE RECORDS SUMMARY | 2024-10-26 13:30 | XMS_ITS | Encounter Summary ---
Author Organization [facility] [employer] [facility] Address [address] [facility] 7t [place] [address] Care Team Providers Care Glass Or Mirror Inspector Name Role Phone Name, Best ROCA Primary Care Provider [phone] Encounter Details Date Type Department Care Team (Latest Contact Info) Description 01/01/2021 Abstract [facility] CONVERSIONS Dental, Provider, DDS [...] Description 11/06/2024 1:00 PM EST Office Visit [facility] MEDICINE [address] [place] [address] Best Marcelo MD [address] [place] [address] 01/21/2025 2:45 PM EDT Office Visit [facility] MEDICINE [address] [place] [address] Best Marcelo MD [address] [place] [address] documented as of this encounter Visit Diagnoses Not on filedocumented in this encounter Care Teams Glass Or Mirror Inspector Relationship Specialty Start Date End Date Best Marcelo MD [address] [place] [address] PCP - General Family Medicine 11/07/15 documented as of this encounter
--- OUTSIDE RECORDS SUMMARY | 2024-10-26 13:30 | XMS_ITS | Encounter Summary ---
Author Organization [employer] [facility] Address 75 [facility] 7t [place] [address] Care Team Providers Care Automatic Data Processing Planner Name Role Phone Name, Best ROCA Primary Care Provider [phone] Encounter Details Date Type Department Care Team (Late st Contact Info) Description 02/28/2023 Abstract [facility] ADULT DENTAL [address] [place], [place] [phone] Misty Fitzgerald [address] [place], [place] [phone] Social History Tobacco Use Types Packs/Day Years [...] Description 11/06/2024 1:00 PM EST Office Visit [facility] [address] [place], [place] [phone] Name, MD Best 230 [place] [address] 01/21/2025 2:45 PM EDT Office Visit [facility] [address] [place] [address] Name, MD Best [address] [place] [address] documented as of this encounter Visit Diagnoses Not on filedocumented in this encounter Additional Health Concerns Assessment Noted Time PHQ-9 Depression Total Score: 0 12/30/19 23 9:03 AM EDT documented as of this encounter Care Teams Automatic Data Processing Planner Relationship Specialty Start Date End Date Name, MD Best [address] [place] [address] PCP - General Family Medicine 11/07/15 documented as of this encounter
--- OUTSIDE RECORDS SUMMARY | 2024-10-26 13:30 | XMS_ITS | Encounter Summary ---
Author Organization [employer] Address 75 [facility] 7t [place] [address] Care Team Providers Care Dairy And Food Laboratory Assistant Name Role Phone Name, Best ROCA Primary Care Provider [phone] Reason for Visit * Reason Onset Date Comments triage 10/19/2022 Encounter Details Date Type Department Care Team ([facility] st Contact Info) Description 10/19/[address] [facility] MEDICINE 230 [place], [place] [phone] Name, MD Best 230 [place] [address] triage Social History Tobacco Use Types Packs/Day [...] question The caller accepted this outcome speaks italian documented in this encounter Plan of Treatment Upcoming Encounters Date Type Department Care Team (Late st Contact Info) Description 11/06/2024 1:00 PM EST Office Visit [address] [address] Name, MD Best [address] [place] [address] 01/21/2025 2:45 PM EDT Office Visit [address] [address] Name, MD Best [address] [place] [address] documented as of this encounter Visit Diagnoses Not on filedocumented in this encounter Care Teams Dairy And Food Laboratory Assistant Relationship Specialty Start Date End Date NameBest MD [address] [place] [address] PCP - General Family Medicine 11/07/15 documented as of this encounter
--- OUTSIDE RECORDS SUMMARY | 2024-10-26 13:30 | XMS_ITS | Encounter Summary ---
Author Organization [employer] Address 75 [facility] 7t h Floor [place] [phone] Care Team Providers Care Warehouse Distribution Associate Name Role Phone Name, Best ROCA Primary Care Provider [phone] Encounter Details Date Type Department Care Team (Late Contact Info) Description 02/28/2023 Abstract [facility] ADULT DENTAL 230 [place], [place] [phone] Alex Yusuf DDS [address] [place], [place] [phone] Social History Tobacco Use Types Packs/Day Years [...] Description 11/06/2024 1:00 PM EST Office Visit [facility] MEDICINE 230 [place], [place] [phone] Name, MD Best 230 [place], [place] [phone] 01/21/2025 2:45 PM EDT Office Visit [facility] MEDICINE [address] [place] [address] Name, MD Best [address] [place] [address] documented as of this encounter Visit Diagnoses Not on filedocumented in this encounter Additional Health Concerns Assessment Noted Time PHQ-9 Depression Total Score: 0 12/30/19 23 9:03 AM EDT documented as of this encounter Care Teams Warehouse Distribution Associate Relationship Specialty Start Date End Date Name, MD Best [address] [place] [address] PCP - General Family Medicine 11/07/15 documented as of this encounter
--- OUTSIDE RECORDS SUMMARY | 2024-10-26 13:30 | XMS_ITS | Encounter Summary ---
Author Organization [employer] Address [address] [facility] [address] 7t [place] [address] Care Team Providers Care Food Services Director Name Role Phone Name, Best ROCA Primary Care Provider [phone] Encounter Details Date Type Department Care Team (Late st Contact Info) Description 03/27/2024 Telephone [facility] MEDICINE 230 [place], [place] [phone] Name, MD Best 230 [place], [place] [phone] Social History Tobacco Use Types Packs/Day Years [...] PM EDT FYI T/C to pt. Through [employer] id - [id number] for below message, No answer. Not able [...] 11/06/2024 1:00 PM EST Office Visit [facility] MEDICINE [address] [place] [address] NameBest MD [address] [place] [address] 01/21/2025 2:45 PM EDT Office Visit [facility] MEDICINE [address] [place] [address] Best Marcelo MD [address] [place] [address] documented as of this encounter Visit Diagnoses Not on filedocumented in this encounter Additional Health Concerns Assessment Noted Time PHQ-9 Depression Total Score: 0 12/30/19 9:03 AM EDT documented as of this encounter Care Teams Food Services Director Relationship Specialty Start Date End Date Best Marcelo MD 230 [place] [address] PCP - General Family Medicine 11/07/15 documented as of this encounter
--- OUTSIDE RECORDS SUMMARY | 2024-10-26 13:30 | XMS_ITS | Encounter Summary ---
Author Organization [employer] Address 75 [facility] 7t [place] [address] Care Team Providers Care Wirer Passenger Car Name Role Phone Name, Best ROCA Primary Care Provider [phone] Reason for Visit * Reason Onset Date Comments Appointment Request 06/12/2024 Encounter Details Date Type Department Care Team ([facility] st Contact Info) Description 06/12/2024 Telephone [facility] MEDICINE 230 [place], [place] [phone] Name, MD Best 230 [place], [place] [phone] Appointment Request Social History Tobacco Use Types [...] Miscellaneous Notes * Telephone Encounter - Misty Borges - 06/12/2024 11:14 AM EDT Tc from pt requesting to r/s today's follow up. No availability. Wool Sampler advised will send a message. Contact pt at [phone] documented in this encounter Plan of Treatment Upcoming Encounters Date Type Department Care Team (Late st Contact Info) Description 11/06/2024 1:00 PM EST Office Visit [address] [address] NameBest MD [address] [place] [address] 01/21/2025 2:45 PM EDT Office Visit [address] [address] NameBest MD [address] [place] [address] documented as of this encounter Visit Diagnoses Not on filedocumented in this encounter Additional Health Concerns Assessment Noted Time PHQ-9 Depression Total Score: 0 12/30/19 23 9:03 AM EDT documented as of this encounter Care Teams Wirer Passenger Car Relationship Specialty Start Date End Date Best Marcelo MD [address] [place] [address] PCP - General Family Medicine 11/07/15 documented as of this encounter
--- OUTSIDE RECORDS SUMMARY | 2024-10-26 13:30 | XMS_ITS | Encounter Summary ---
Author Organization [employer] Address [address] [facility] 7t [place] [address] Care Team Providers Care Germ Drier Name Role Phone Name, Best ROCA Primary Care Provider [phone] Reason for Visit * Reason Comments Arm Pain Encounter Details Date Type Department Care Team ([facility] st Contact Info) Description 10/09/2024 8:40 AM EST Office Visit [facility] [address] [place], [place] [phone] Rosa Starkey MD [address] [place] [address] Acute pain of right shoulder (Primary Dx); [...] 1:00 PM EST Office Visit [facility] [place] [address] [place] [address] 01/21/2025 2:45 PM EDT Office Visit [facility] [place] [address] [place] [address] documented as of this encounter Procedures Procedure [...] EST Narrative 10/09/2024 9:50 AM EST ? [facility] ?[address] ?[place] [address] ?XRay Report ? Signed ? Patient: Fuller Melguizo,Cathy ?MR#: ?? [id number] ? : 1960 ?Acct:[id number] ? Age/Sex: 64 / F ?ADM Date: 10/05/24 ? Loc: HO.SSS ? Attending Dr: Tiffani Portillo MD ? Ordering Physician: Rosa Starkey MD ?? Date of Service: 10/09/24 ?? Procedure(s): XR shoulder RT min 2V ?? Accession Number(s): [id number] ? cc: Rosa Starkey MD; Name,Best ROCA [...] MD in OV> ?10/09/24 0947 ? DD/ 9 ? TD/TT: 10/09/24929 ? Supervisor Marble: ? Procedure Note Donzehrater, Image - 10/09/2024 [place] [address] XRay Report Signed Patient: Yasmin HumphreysyMR#: [id number] : 1960Acct:[id number] Age/Sex: 64 / FADM Date: 10/05/24 Loc: HO.SSS Attending Dr: Tiffani Portillo MD Ordering Physician: Rosa Starkey MD Date of Service: 10/09/24 Procedure(s): XR shoulder RT min 2V Accession Number(s): [id number] cc: Rosa Starkey MD; Name,Best ROCA EXAMINATION: [...] in OV> 10/09/24946 DD/ 9 TD/TT: 10/09/24929 Supervisor Marble: Rosa Starkey MD IMG XR PROCEDURES Edited R esult - Final documented in this encounter Visit Diagnoses Diagnosis Acute pain of right shoulder- Primary Radiculopathy, unspecified spinal region documented in this encounter Additional Health Concerns Assessment Noted Time PHQ-9 Depression Total Score: 6 06/22/20 24 1:53 PM EDT documented as of this encounter Care Teams Germ Drier Relationship Specialty Start Date End Date Name, MD Best [address] [place] [address] PCP - General Family Medicine 11/07/15 documented as of this encounter
--- OUTSIDE RECORDS SUMMARY | 2024-10-26 13:30 | XMS_ITS | Encounter Summary ---
Author Organization [employer] Address [address] [facility] [address] 7[address] [place] [address] Care Team Providers Care Graduate Assistant Name Role Phone Name, Best ROCA Primary Care Provider [phone] Reason for Visit * Reason Onset Date Comments Apirl Recalls 10/25/2024 Encounter Details Date Type Department Care Team (Late st Contact Info) Description 10/25/[address] [facility] [address] [facility] [place], [place] [phone] Rochelle Gaona MA Apirl Recalls Social History Tobacco Use Types Packs/Day Years [...] encounter Miscellaneous Notes * Telephone Encounter - Rohcelle Gaona MA - 10/25/2024 1:25 PM EST Telephone call to patient to schedule the following recall: Visit type: Physical Appointment notes: HTN and Physical Patient agree to appointment on 10/25/24 at 2:45 PM with Name. documented in this encounter Plan of Treatment Upcoming Encounters Date Type Department Care Team (Late st Contact Info) Description 11/06/2024 1:00 PM EST Office Visit [address] [address] Best Marcelo MD [address] [place] [address] 01/21/2025 2:45 PM EDT Office Visit [facility] [address] [place] [address] Best Marcelo MD [address] [place] [address] documented as of this encounter Visit Diagnoses Not on filedocumented in this encounter Additional Health Concerns Assessment Noted Time PHQ-9 Depression Total Score: 6 06/22/20 24 1:53 PM EDT documented as of this encounter Care Teams Graduate Assistant Relationship Specialty Start Date End Date Best Marcelo MD [address] [place] [address] PCP - General Family Medicine 11/07/15 documented as of this encounter
--- NOTE | 2024-10-26 13:31 | MHC.OFFVIS ---
Vital Signs 10/26/24 13:32 Height 5 ft 1 in Weight 188 lb BMI 35.5 Intake Visit Reasons: INJ RT Euflexxa #2 Intake Note: Cathy is a 64 year old female who presents today for a right knee Euflexxa #2. Meat Press Operator Required: No Allergies acetaminophen [From Excedrin Back and Body] Allergy (Verified 11/02/24 11:45) Unknown aspirin [From Excedrin Back and Body] Allergy (Verified 11/02/24 11:45) Unknown calcium carbonate [From Excedrin Back and Body] Allergy (Verified 11/02/24 11:45) Unknown HPI HPI INJ RT Euflexxa #2: Details: Cathy is a 64 year old female who presents today for a right knee Euflexxa #2. [facility] Medical History History of renal calculi Left flank discomfort COVID-19 High cholesterol High blood pressure Asthma HTN (hypertension) Surgical History History of back surgery History of esophagogastroduodenoscopy (EGD) H/O colonoscopy Family History Father No problems noted. Mother No problems noted. Social History Alcohol intake: never Patient Tobacco Use Status: Never used Tobacco Current occupational status: retired Current occupation: right hand dominant Review of Systems Const All systems reviewed & are unremarkable except as noted in HPI and below Physical Exam Vital Signs: BMI result Body Mass Index 35.5 Assessment & Plan Assessment & Plan (1) Localized osteoarthritis of right knee: Code(s): M17.11 - Unilateral primary osteoarthritis, right knee Category: Medical Plan Right knee euflexxa i jection performed today without issue or complication Return for injection #3 in one week Coding Level of Care Code Procedure Only Diagnoses Localized osteoarthritis of right knee M17.11
--- OUTSIDE RECORDS SUMMARY | 2024-10-26 13:31 | XMS_ITS | Encounter Summary ---
Author Organization [employer] Address [address] [facility] [address] 7t [place] [address] Care Team Providers Care Golf Caddy Name Role Phone Name, Best ROCA Primary Care Provider [phone] Reason for Visit * Reason Comments Med Refill Encounter Details Date Type Department Care Team ([facility] st Contact Info) Description 08/20/2023 Refill [facility] [address] [place], [place] [phone] Jason Lopes FNP Viral URI Social History [...] Description 11/06/2024 1:00 PM EST Office Visit [facility] [address] [place] [address] NameBest MD [address] [place] [address] 01/21/2025 2:45 PM EDT Office Visit [facility] [address] [place] [address] NameBest MD [address] [place] [address] documented as of this encounter Visit Diagnoses Diagnosis Viral URI Acute upper respiratory infections of unspecified site documented in this encounter Additional Health Concerns Assessment Noted Time PHQ-9 Depression Total Score: 0 12/30/19 23 9:03 AM EDT documented as of this encounter Care Teams Golf Caddy Relationship Specialty Start Date End Date NameBest MD [address] [place] [address] PCP - General Family Medicine 11/07/15 documented as of this encounter
--- OUTSIDE RECORDS SUMMARY | 2024-10-26 13:31 | XMS_ITS | Clinical Summary ---
Author Organization [employer] Address [address] [facility] 7t [place] [address] Care Team Providers Care Aerial Tram Operator Name Role Phone Name, Best ROCA Primary Care Provider [phone] Allergies Active Allergy Reactions Criticality Noted Date [...] 18 g 1 024 Active sodium chloride ([place]orne Nasal [place]mot) 0.65 % nasal sprayIndications: Mild intermittent asthma [...] TABLET BY MOUTH EVERY DAY 90 tablet 024 Active albuterol (2.5 MG/3ML) 0.083% nebulizer solutionIndicatio ns:Mild intermittent asthma with exacerbation TAKE 3 ML (2.5 MG) VIA NEBULIZATION EVERY 6 HOURS NEEDED FOR WHEEZE 75 mL 024 Active acetaminophen (Tylenol) 500 MG tablet 2 tablets Q4-6h2 tablets Q4-6h 30 tablet 024 Active losartan-hydroCHL OROthiazide (Hyzaar) 50-12.5 MG tablet TAKE 1 TABLET BY MOUTH EVERY DAY 90 tablet 1 024 Active fluticasone (Flonase) 50 MCG/ACT nasal sprayIndications: Mild intermittent asthma with exacerbation SPRAY 1 SPRAY INTO EACH NOSTRIL ONCE A DAY 48 mL 024 Active atorvastatin (Lipitor) 20 MG tabletIndications :Hyperlipidemia, unspecified hyperlipidemia type TAKE 1 TABLET BY MOUTH EVERY DAY IN THE MORNING 90 tablet 1 025 Active Lidocaine 5 % creamIndications: Acute pain of right shoulder Apply topically bid 30 g 3 025 Active cyclobenzaprine (Flexeril) 5 MG tabletIndications :Acute pain of right shoulder 1 tab po at bedtime prn pain citizen of [place] 20 tablet 025 Active cyclobenzaprine (Flexeril) 5 MG tablet Take 1 [...] Encounters Date Type Department Care Team Description 10/25/2024 Telephone [facility] [address] [place] [address] Rochelle Gaona [place] Apirl Recalls 10/24/2024 Orders Only [facility] External Provider, [facility] 10/09/2024 8:40 AM EST Office Visit [facility] [address] [address] Rosa Starkey MD Acute pain of right shoulder (Primary Dx); Radiculopathy, unspecified spinal region 09/24/2024 Refill [facility] [address] [place], [place] [phone] Name, MD Best Hyperlipidemia, unspecified hyperlipidemia type 09/12/2024 6:20 PM EST Office Visit [facility] [place] [address] [place] [address] Laura Don NP Cough in adult patient 09/12/2024 Travel 09/03/2024 Telephone [facility] [address] [place] [address] Rochelle GaonaAIDAN recalls 08/27/2024 Orders Only [facility] [address] [place] [address] Best Marcelo MD Chronic pain of right knee (Primary Dx); Old peripheral tear of meniscus of right knee, unspecified meniscus 08/12/2024 Refill [facility] [address] [place] [address] Best Marcelo MD Mild intermittent asthma with exacerbation 08/11/2024 9:00 AM EST Office Visit [facility] [address] [place] [address] Best Marcelo MD Chronic pain of right knee (Primary Dx) 08/11/2024 Travel 08/10/2024 Telephone [facility] [address] [place] [address] Best Marcelo MD Nurse Triage 08/06/2024 2:40 PM EST Office Visit [facility] [address] [place] [address] Suzanne Frazier MD Subacute maxillary sinusitis (Primary Dx); Mild intermittent asthma with exacerbation; Acute cough 08/06/2024 Travel 08/01/2024 Telephone [facility] [address] [place] [address] Best Macrelo MD Nurse Triage 08/01/2024 Refill [facility] [address] [place] [address] Best Marcelo MD Heartburn; Mild intermittent asthma with exacerbation 08/01/2024 Refill [facility] [address] [place] [address] Suzanne Frazier MD Mild intermittent asthma with [...] 11/06/2024 1:00 PM EST Office Visit [facility] [address] [place] [address] Name, MD Best [address] [place] [address] 01/21/2025 2:45 PM EDT Office Visit [address] [address] Name, MD Best [address] [place] [address] Health Maintenance Due Date Last Done Comments [...] 01/03/2024 01/01/2021, 07/06 Dental X-Ray: Bitewings 02/26/2024 02/25/20, 01/04/2022, 01/01/2021, Additional history exists COVID-19 Vaccine ( season) 2024 10/01/2021, 09/28/2021, 01/05/2021, Additional history exists SDOH Screening 12/04/2024 12/05/2023 Alcohol/Substance Use Screening 06/22/2025 06/22/2024 Depression Screening 06/22/2025 06/22/2024, 06/22/20 24 Mammogram 07/13/2025 07/13/2024, 11/2022, 06/07/2023, Additional history [...] RENAL BI Routine 10/25/2024 12:01 PM EST XR SHOULDER 2+ VIEWS RIGHT Routine 10/09/2024 [...] Recently Relevant to Health Maintenance Results * US RENAL BI (10/25/2024 12:01 PM EST) Anatomical Region Laterality Modality Abdomen Ultrasound 10/25/2024 12:0 1 PM EST Narrative 10/25/2024 12:02 PM EST ? [facility] ?[address] ?[place] [address] ? Ultrasound Report ? Signed ? Patient: Fuller Melguabao,Cathy ?MR#: ?? [id number] ? : 1960 ?Acct:[id number] ? Age/Sex: 64 / F ?ADM Date: 10/24/24 ? Loc: HO.US ? Attending Dr: Priscilla Mills MD ? Ordering Physician: Priscilla Mills MD ?? Date of Service: 10/24/24 ?? Procedure(s): US renal BI ?? Accession Number(s): [id number] ? cc: Priscilla Mills MD; Davian,Best ROCA ? CLINICAL HISTORY: N20.0 - Calculus [...] DD/ 1201 ? TD/TT: 10/25/24 1201 ? Cattle Manager: ? Procedure Note Donthorinterpreter, Image - 10/25/[address] [address] Ultrasound Report Signed Patient: Gwen Humphreys#: [id number] : 1960Acct:[id number] Age/Sex: 64 / FADM Date: 10/24/24 Loc: .US Attending Dr: Priscilla Mills MD Ordering Physician: Priscilla Mills MD Date of Service: 10/24/24 Procedure(s): US renal BI Accession Number(s): [id number] cc: Priscilla Mills MD; Name,Best ROCA CLINICAL [...] by Evelia Smith MD in OV> 10/25/24 120 DD/ 120 TD/TT: 10/25/24 120 Cattle Manager: us [facility] External Provider IMG US PROCEDURES Final Result * XR Shoulder 2+ Views Right (10/09/2024 9:10 AM EST) Anatomical Region Laterality Modality Upper Extremities, Shoulder Right Radi ographic Imaging 10/09/2024 9:10 AM EST Narrative 10/09/2024 9:50 AM EST ? [facility] ?[address] ?[place] [address] ?XRay Report ? Signed ? Patient: Fuller Melguizo,Cathy ?MR#: ?? [id number] ? : 1960 ?Acct:[id number] ? Age/Sex: 64 / F ?ADM Date: 10/05/24 ? Loc: HO.SSS ? Attending Dr: Tiffani Portillo MD ? Ordering Physician: Rosa Starkey MD ?? Date of Service: 10/09/24 ?? Procedure(s): XR shoulder RT min 2V ?? Accession Number(s): [id number] ? cc: Rosa Starkey MD; Name,Best ROCA [...] DD/ 0910 ? TD/TT: 10/09/24 0930 ? Cattle Manager: ? Procedure Note Leandra Washington - 10/09/[address] [address] XRay Report Signed Patient: Jonny JoynerYasminyMR#: [id number] : 1960Acct:[id number] Age/Sex: 64 / FADM Date: 10/05/24 Loc: HO.SSS Attending Dr: Tiffani Portillo MD Ordering Physician: Rosa Starkey MD Date of Service: 10/09/24 Procedure(s): XR shoulder RT min 2V Accession Number(s): [id number] cc: Rosa Starkey MD; Name,Best ROCA EXAMINATION: [...] Alejo Bravo MD 10/09/2024 09:47 AM EST RP Dictated By: Alejo Bravo MD Signed By: <Electronically signed by Alejo Bravo MD in OV> 10/09/24 0947 DD/ 0910 TD/TT: 10/09/24 0930 Cattle Manager: Rosa Starkey MD IMG XR PROCEDURES Edited R esult - Final * Influenza B (ID NOW Rapid Molecular) (09/12/2024 6:22 PM EST) Only the most recent of2 resultswithin the time period is included. [facility] Influenza B Negative Negative, Indeterminate [facility] Swab 09/12/2024 6:22 PM EST Laura Don NP POINT OF CARE TEST ENTER/EDIT O RDERABLES Final Result [facility] [address] [place] [phone] * Influenza A (ID NOW Rapid Molecular) (09/12/2024 6:21 PM EST) Only the most recent of2 resultswithin the time period is included. Pathologist [facility] Influenza A Negative Negative, Indeterminate [facility] Swab 09/12/2024 6:21 PM EST us Laura Don CONCRETE SMOOTHER POINT OF CARE TEST ENTER/EDIT O RDERABLES Final Result [facility] [address] [place] [address] [phone] * POCT rapid strep A manually resulted (09/12/2024 6:15 PM EST) [facility] Rapid Strep A Screen Negative Negative, None Detected Swab 09/12/2024 6:15 PM EST us Laura Don CONCRETE SMOOTHER POINT OF CARE TEST ENTER/EDIT O RDERABLES Final Result * POCT Rapid COVID Ag (09/12/2024 6:15 PM EST) [facility] Rapid COVID Ag Negative Swab 09/12/2024 6:15 PM EST us Laura Don CONCRETE SMOOTHER POINT OF CARE TEST ENTER/EDIT O RDERABLES Final Result * MR Knee w/o Contrast Right (08/19/2024 5:45 PM EST) Anatomical Region Laterality Modality Magnetic Resonan ce 08/19/2024 5:45 PM EST Narrative 08/23/2024 3:39 PM EST ? [facility] ?[address] ?[place] [address] ? Magnetic Resonance Report ? Signed ? Patient: Fuller Melguizo,Cathy ?MR#: ?? [id number] ? : 1960 ?Acct:[id number] ? Age/Sex: 63 / F ?ADM Date: 12/15/24 ? Loc: HO.MRI ? Attending Dr: Best Marcelo MD ? Ordering Physician: Best Marcelo MD ?? Date of Service: 08/19/24 ?? Procedure(s): MR knee RT wo con ?? Accession Number(s): [id number] ? cc: Name,Best ROCA ? EXAMINATION: ?? MR KNEE WITHOUT CONTRAST, [...] MD in OV> ? 08/23/24 1537 ? DD/DT: 08/19/ 1745 ? TD/TT: 08/19/24 1824 ? Cattle Manager: DM ? Procedure Note Donotuseinterpreter, Image - 08/23/2024 [place] [address] Magnetic Resonance Report Signed Patient: Gwen Humphreys#: [id number] : 1960Acct:[id number] Age/Sex: 63 / FADM Date: 08/19/24 Loc: HO.MRI Attending Dr: Best Marcelo MD Ordering Physician: Best Marcelo MD Date of Service: 08/19/24 Procedure(s): MR knee RT wo con Accession Number(s): [id number] cc: Best Marcelo MD EXAMINATION: MR KNEE [...] Jose R Joy MD 08/23/2024 03:37 PM [facility] Dictated By: Jose R Joy MD Signed By: <Electronically signed by Jose R Joy MD inOV> 08/23/24 1537 DD/ 1745 TD/TT: 08/19/24 1824 Cattle Manager: SHYANNE us Best Marcelo MD IMG MRI PROCEDURES [...] EST Narrative 07/24/2024 9:16 AM EST ? [facility] ? [address] ?[place] [address] ? Mammography Report ? Signed ? Patient: Jonny Melguabao,Cathy ?MR#: ?? [id number] ? : 1960 ?Acct:[id number] ? Age/Sex: 63 / F ?ADM Date: 11//24 ? Loc: HO.MAMMO ? Attending Dr: Best Name MD ? Ordering Physician: Name,Best MD ?Results: 1Negative ? Date of Service: 07/13/24 ?Follow Up: 1 Year From Orig ?? inal Mammogram ? Procedure(s): MM tomosynthesis screening BI ?? Accession Number(s): [id number] ? cc: Name,Best ROCA ? EXAMINATION: ?? MM SCREENING DIGITAL [...] DD/ 1424 ? TD/TT: 07/13/24 1440 ? Cattle Manager: ? Procedure Note Felix, Image - 07/24/2024 [facility] [address] [place] [address] Dr. [place], [place] [address] Mammography Report Signed Patient: Gwen Humphreys#: [id number] : 1960Acct:[id number] Age/Sex: 63 / FADM Date: 07/13/24 Loc: HO.MAMMO Attending Dr: Best Marcelo MD Ordering Physician: Best Marceloesults: 1Negative Date of Service: 07/13/24Follow Up: 1 Year From Orig ina Mammogram Procedure(s): MM tomosynthesis screening BI Accession Number(s): [id number] cc: Name,Best ROCA EXAMINATION: MM SCREENING DIGITAL BREAST TOMOSYNTHESIS, BILATERAL [...] by: Joseline Walter DO 07/24/2024 09:13 AM [facility] Dictated By: Joseline Walter DO Signed By: <Electronically signed by Joseline Walter DO in OV> 07/24/24 0913 DD/ 1424 TD/TT: 07/13/24 1440 Cattle Manager: Best Marcelo MD IM BI PROCEDURES Final Result * (ABNORMAL) Lipid Panel, Standard (12/15/2023 11:23 AM EDT) Triglycerides 148 <150 mg/dL [facility] Comment:Desirable Triglyceri de: less than 150 mg/dLBorderline High Triglyceride 150-199 mg/dLHigh Triglyceride: 200-499 mg/dLVery High Triglyceride: greater than or equal to 5OO mg/dL Cholesterol 194 <200 mg/dL [facility] Comment:Desirable Cholestero l: less than 200 mg/dLBorderline High Cholesterol: 200-239 mg/dLHigh Cholesterol: greater than 239 mg/dL LDL Cholesterol Calculated 108(H) <100 mg/dL [facility] Comment:Desirable LDL: less than 100 mg/dLNear Optimal/Above Optimal LDL: 110- 129 mg/dLBorderline High LDL: 130-159 mg/dLHigh LDL: 160-189 mg/dLVery High LDL: greater than or equal to 190 mg/dL HDL Cholesterol 57 >40 mg/dL [facility] Comment:Desirable HDL: great er than 40 mg/dL Note: This HDL assay may give artificially low results in patients with liver disease. Blood Venous blood specimen / Unknown 12/15/2023 11:23 AM EDT 12/15/2023 1:16 PM EDT Best Marcelo MD LAB BLOOD ORDERABLES Final Resul t [facility] [address] [place] [phone] * HEPATITIS C AB W/REFL TO [...] a test for HCV RNA (test code 51366) is suggested. ?? For additional information please refer to http://education.[employer]faq/HMA61p3 (This link is being provided for informational/ educational purposes only.) ?? 07/14/2022 3:30 PM EST Michell Epperson DEE DEE HISTORICAL/NON ORDERABLE LABS Final Result [facility] [employer] [facility] * THINPREP TIS PAP AND HPV mRNA E6/E7, CT/NG, TRICH (07/14/2022 3:03 PM EST) Chlamydia trachomatis RNA, TMA, Urogenital NOT DETECTED NOT DETECTED [facility] Clinical Information: NIL NEG 2014 [facility] COMMENT SEE COMMENT MISHAE D [employer] Comment: The analytical performance characteristics of this assay, when used to test SurePath(TM) specimens have been determined by [employer]. The modifications have not been cleared or approved by the FDA. This assay has been validated pursuant to the CLIA regulations and is used for clinical purposes. ?? For additional information, please refer to https://YAZUO.[employer]faq/ZRA482 (This link is being provided for information/ educational purposes only.) ?? COMMENT SEE COMMENT TINA Montgomery [employer] Comment: EXPLANATORY NOTE: ? The Pap is [...] been evaluated with computer assisted technology. CONVERTED [employer] Coloring Checker: SEE COMMENT CONVERTED [employer] Comment: MSM, CT(ASCP) CT screening location: [address] ??[address] HPV nRNA E6/E7 Not Detected Not Detected CONVERTED [employer] Comment: Methodology: Cone Machine Feeder-Mediated Amplification This assay detects E6/E7 viral messenger RNA (mRNA) from 14 high-risk HPV types (16,18,31,33,35,39,45,51,52,56,58,59,66,68). ? Cervical sources are required for HPV testing. If a vaginal source from a patient who has had a total hysterectomy with removal of cervix was ?? submitted, please contact the testing laboratory for alternative testing options. ?? For additional information, please refer to http://education.[employer]faq/VWX369c1 (This link if provided for information/ educational [...] of this assay have been determined by [employer]. The modifications have not been cleared or approved by the FDA. This assay has been validated pursuant to the CLIA regulations and is used for clinical purposes. ?? For additional information, please refer to http://[employer] faq/Trichomonastma (This link is being provided for information/ educational purposes only.) ?? 07/14/2022 3:03 PM EST Michell Epperson CNM LAB PATHOLOGY ORDERABLES Final Result Performing Organization Address City/State/[facility] Co de Phone Number [facility]VERTED [facility] from Last 3 Months or Most Recently Relevant to Health Maintenance Insurance [address] [place] [address] MEDICARE [facility] STANDARD [address] [place] DENTAL-[facility] MEDICAID STAND ADULT * Guarantor: Cathy Humphreys Account Type Relation to Patient Date of Phone Billing Address Personal/Family Self [address] Perri [place] Care Teams Aerial Tram Operator Relationship Specialty Start Date End Date Name, MD Best [address] [place] [phone] PCP - General Family Medicine 11/07/15
[2024-10-26 13:32] VITALS: BMI 35.5
== END 2024-10-26 13:56 | disposition home or self-care (01) ==
PROVIDERS: PCP Internal Medicine Geriatric Medicine
DX: M17.11 Unilateral primary osteoarthritis, right knee (principal)
CPT/HCPCS: 20610

== ENCOUNTER → 2024-10-26 13:02 | Outpatient (BNVA) | payer MEDICARE, SELFPAY | PROVIDERS: PCP Internal Medicine Geriatric Medicine | DX: M17.11 Unilateral primary osteoarthritis, right knee (principal) | CPT/HCPCS: 20610; J7323 ==

== ENCOUNTER 2024-11-02 11:36 | Outpatient (AMB) | payer MEDICARE, SELFPAY ==
--- NOTE | 2024-11-02 11:40 | MHC.OFFVIS ---
Intake Visit Reasons: INJ RT Euflexxa #3 Intake Note: Cathy is a 64 year old female who presents today for Right Knee Euflexxa Injection #3. Patient reports she is feeling some relief in her knee. Allergies acetaminophen [From Excedrin Back and Body] Allergy (Verified 11/02/24 11:45) Unknown aspirin [From Excedrin Back and Body] Allergy (Verified 11/02/24 11:45) Unknown calcium carbonate [From Excedrin Back and Body] Allergy (Verified 11/02/24 11:45) Unknown HPI HPI INJ RT Euflexxa #3: Details: Here for right knee Euflexxa #3 PFSH Medical History History of renal calculi Left flank discomfort COVID-19 High cholesterol High blood pressure Asthma HTN (hypertension) Surgical History History of back surgery History of esophagogastroduodenoscopy (EGD) H/O colonoscopy Family History Father No problems noted. Mother No problems noted. Social History Alcohol intake: never Patient Tobacco Use Status: Never used Tobacco Current occupational status: retired Current occupation: right hand dominant Physical Exam Extrem Other: skin c/d/i Office Procedures Joint Inj/Aspir; Non-Pain Clin Joint Injection/Drain Details: Injected 1 mL of Decadron and 3 mL 1% lidocaine and 3 mL of 0.25% Marcaine. Site was prepped using aseptic technique. Patient tolerated the procedure well. Shoulders, Hips, Knees, Knee Large Joint Injection : Right Knee Coding Procedure code (CPT) selection complete Assessment & Plan Assessment & Plan (1) Localized osteoarthritis of right knee: Code(s): M17.11 - Unilateral primary osteoarthritis, right knee Category: Medical Plan: 11/05 Euflexxa. F/u 3 mo Coding Level of Care Code Est Pt Level 2 (35689) Diagnoses Localized osteoarthritis of right knee M17.11 CPT Codes Shoulders, Hips, Knees, - Knee Large Joint Injection : Right Knee ([id number])
--- OUTSIDE RECORDS SUMMARY | 2024-11-02 13:56 | XMS_ITS | Encounter Summary ---
Author Organization [employer] [facility] Address [address] [facility] 7t [place] [address] Care Team Providers Care Gun Repair Clerk Name Role Phone Name, Best ROCA Primary Care Provider [phone] Encounter Details Date Type Department Care Team (Late st Contact Info) Description 02/28/2023 Abstract [facility] ADULT DENTAL [address] [place], [place] [phone] Misty Fitzgerald [address] [place], [place] [phone] Social History Tobacco Use Types Packs/Day Years [...] Description 11/06/2024 1:00 PM EST Office Visit [facility] MEDICINE [address] [place], [place] [phone] Name, MD Best [address] [place] [address] 01/21/2025 2:45 PM EDT Office Visit [facility] [address] [place] [address] Name, MD Best [address] [place] [address] documented as of this encounter Visit Diagnoses Not on filedocumented in this encounter Additional Health Concerns Assessment Noted Time PHQ-9 Depression Total Score: 0 12/30/19 23 9:03 AM EDT documented as of this encounter Care Teams Gun Repair Clerk Relationship Specialty Start Date End Date Name, MD Best [address] [place] [address] PCP - General Family Medicine 11/07/15 documented as of this encounter
--- OUTSIDE RECORDS SUMMARY | 2024-11-02 13:56 | XMS_ITS | Encounter Summary ---
Author Organization [employer] Address [address] [facility] 7t [place] [address] Care Team Providers Care Pcb Design Engineer Name Role Phone Name, Best ROCA Primary Care Provider [phone] Reason for Visit * Reason Onset Date Comments Medication Question 07/26/2023 Encounter Details Date Type Department Care Team ([facility] st Contact Info) Description 07/26/2023 Telephone [facility] MEDIC[facility] [address] [place], [place] [phone] Mikael Olivares MD [address] [place], [place] [phone] Medication Question Social History Tobacco Use Types [...] by her PCP Please contact pt at [phone] Trinidadian Speaker documented in this encounter Plan of Treatment Upcoming Encounters Date Type Department Care Team (Late st Contact Info) Description 11/06/2024 1:00 PM EST Office Visit [facility] [address] [place] [address] Best Marcelo MD [address] [place] [address] 01/21/2025 2:45 PM EDT Office Visit [facility] [address] [place] [address] Best Marcelo MD [address] [place] [address] documented as of this encounter Visit Diagnoses Not on filedocumented in this encounter Additional Health Concerns Assessment Noted Time PHQ-9 Depression Total Score: 0 12/30/19 23 9:03 AM EDT documented as of this encounter Care Teams Pcb Design Engineer Relationship Specialty Start Date End Date Best Marcelo MD [address] [place] [address] PCP - General Family Medicine 11/07/15 documented as of this encounter
--- OUTSIDE RECORDS SUMMARY | 2024-11-02 13:56 | XMS_ITS | Encounter Summary ---
Author Organization [employer] Address [address] [facility] [address] 7t [place] [address] Care Team Providers Care Director Staffing Name Role Phone Name, Best ROCA Primary Care Provider [phone] Encounter Details Date Type Department Care Team (Late st Contact Info) Description 10/24/2024 Orders Only [facility] External Provider, [facility] Social History Tobacco Use Types Packs/Day [...] t he electric, gas, oil or water [employer] threatened to shut off services in your [...] Description 11/06/2024 1:00 PM EST Office Visit [address] [address] Best Marcelo MD [address] [place] [address] 01/21/2025 2:45 PM EDT Office Visit [address] [address] Best Marcelo MD [address] [place] [address] documented as of this encounter Procedures Procedure Name Priority Date/Time Associated Diagnosis Comments US RENAL BI Routine 10/25/2024 12:01 PM EST documented in this encounter Results * US RENAL BI (10/25/2024 12:01 PM EST) Anatomical Region Laterality Modality Abdomen Ultrasound 10/25/2024 12:0 1 PM EST Narrative 10/25/2024 12:02 PM EST ? [facility] ?[address] ?[place] [address] ? Ultrasound Report ? Signed ? Patient: Fuller Melguizo,Cathy ?MR#: ?? [id number] ? : 1960 ?Acct:[id number] ? Age/Sex: 64 / F ?ADM Date: 02/19/25 ? Loc: HO.US ? Attending Dr: Priscilla Mills MD ? Ordering Physician: Priscilla Mills MD ?? Date of Service: 10/24/24 ?? Procedure(s): US renal BI ?? Accession Number(s): [id number] ? cc: Priscilla Mills MD; Name,Best ROCA [...] DD/ 1201 ? TD/TT: 10/25/24 1201 ? Geoscience Laboratory Technician: ? Procedure Note Felix, Leandra - 10/25/[address] [address] Ultrasound Report Signed Patient: Gwen Humphreys#: [id number] : 1960Acct:[id number] Age/Sex: 64 / FADM Date: 10/24/24 Loc: HO.US Attending Dr: Priscilla Mills MD Ordering Physician: Priscilla Mills MD Date of Service: 10/24/24 Procedure(s): US renal BI Accession Number(s): [id number] cc: Priscilla Mills MD; Name,Best ROCA CLINICAL [...] 10/25/24 1201 DD/ 1201 TD/TT: 10/25/24 1201 Geoscience Laboratory Technician: [facility] External Provider IMG US PROCEDURES Final Result documented in this encounter Visit Diagnoses Not on filedocumented in this encounter Additional Health Concerns Assessment Noted Time PHQ-9 Depression Total Score: 6 06/22/20 24 1:53 PM EDT documented as of this encounter Care Teams Director Staffing Relationship Specialty Start Date End Date Name, MD Best [address] [place] [address] PCP - General Family Medicine 11/07/15 documented as of this encounter
--- OUTSIDE RECORDS SUMMARY | 2024-11-02 13:56 | XMS_ITS | Clinical Summary ---
Author Organization [employer] Address [address] [facility] 7t [place] [address] Care Team Providers Care Weight Checker Name Role Phone Name, Best ROCA Primary Care Provider [phone] Allergies Active Allergy Reactions Criticality Noted Date [...] 18 g 1 024 Active sodium chloride ([place] Nasal [place]) 0.65 % nasal sprayIndications: Mild intermittent asthma [...] 1 tab po at bedtime prn pain hong konger 20 tablet 025 Active cyclobenzaprine (Flexeril) 5 [...] Type Department Care Team Description 10/25/2024 Telephone [facility] MEDICINE [address] [place] [address] Rochelle Gaona [place] Apirl Recalls 10/24/2024 Orders Only [facility] External Provider, [facility] 10/09/2024 8:40 AM EST Office Visit [facility] WALK[facility] [address] [address] Rosa Starkey MD Acute pain of right shoulder (Primary Dx); Radiculopathy, unspecified spinal region 09/24/2024 Refill [facility] MED[facility] [address] [place], [place] [phone] Name, MD Best Hyperlipidemia, unspecified hyperlipidemia type 09/12/2024 6:20 PM EST Office Visit [facility] [place] [address] [place] [address] Laura Don NP Cough in adult patient 09/12/2024 Travel 09/03/2024 Telephone [facility] MED[facility]INE [address] [place] [address] Rochelle Gaona AIDAN talat recalls 08/27/2024 Orders Only [facility] MED[facility]INE [address] [place] [address] Best Marcelo MD Chronic pain of right knee (Primary Dx); Old peripheral tear of meniscus of right knee, unspecified meniscus 08/12/2024 Refill [facility] [address] [place] [address] NameBest MD Mild intermittent asthma with exacerbation 08/11/2024 9:00 AM EST Office Visit [facility] [address] [place] [address] Best Marcelo MD Chronic pain of right knee (Primary Dx) 08/11/2024 Travel 08/10/2024 Telephone [facility] MED[facility]INE [address] [place] [address] Best Marcelo MD Nurse Triage 08/06/2024 2:40 PM EST Office Visit [facility] [address] [place] [address] Suzanne Frazier MD Subacute maxillary sinusitis (Primary Dx); Mild intermittent asthma with exacerbation; Acute cough 08/06/2024 Travel from Last 3 Months Immunizations Name Administration [...] EST Office Visit [facility] [address] [place] [address] NameBest MD [address] [place] [address] 01/21/2025 2:45 PM EDT Office Visit [address] [address] Name, MD Best [address] [place] [address] Health Maintenance Due Date Last Done Comments [...] EST Narrative 10/25/2024 12:02 PM EST ? [facility] ?[address] ?[place] [address] ? Ultrasound Report ? Signed ? Patient: Fuller Melguizo,Cathy ?MR#: ?? [id number] ? : 1960 ?Acct:[id number] ? Age/Sex: 64 / F ?ADM Date: 10/24/24 ? Loc: HO.US ? Attending Dr: Priscilla Mills MD ? Ordering Physician: Priscilla Mills MD ?? Date of Service: 10/24/24 ?? Procedure(s): US renal BI ?? Accession Number(s): [id number] ? cc: Priscilla Mills MD; Name,Best ROCA [...] DD/ 1201 ? TD/TT: 10/25/24 1201 ? Manager Union: ? Procedure Note Felix, Image - 02/20/[address] [address] Ultrasound Report Signed Patient: Adolfo HumphreysR#: [id number] : 1960Acct:[id number] Age/Sex: 64 / FADM Date: 10/24/24 Loc: HO.US Attending Dr: Priscilla Mills MD Ordering Physician: Priscilla Mills MD Date of Service: 10/24/24 Procedure(s): US renal BI Accession Number(s): [id number] cc: Priscilla Mills MD; Name,Best ROCA CLINICAL [...] 10/25/24 1201 DD/ 1201 TD/TT: 10/25/24 1201 Manager Union: us [facility] External Provider IMG US PROCEDURES Final Result * XR Shoulder 2+ Views Right (10/09/2024 9:10 AM EST) Anatomical Region Laterality Modality Upper Extremities, Shoulder Right Radi ographic Imaging 10/09/2024 9:10 AM EST Narrative 10/09/2024 9:50 AM EST ? [facility] ?[address] ?[place] [address] ?XRay Report ? Signed ? Patient: Fuller Melguizo,Cathy ?MR#: ?? [id number] ? : 1960 ?Acct:[id number] ? Age/Sex: 64 / F ?ADM Date: /31/25 ? Loc: HO.SSS ? Attending Dr: Tiffani Portillo MD ? Ordering Physician: Rosa Starkey MD ?? Date of Service: 10/09/24 ?? Procedure(s): XR shoulder RT min 2V ?? Accession Number(s): [id number] ? cc: Rosa Starkey MD; Name,Best ROCA [...] ??Alejo Bravo MD ??10/09/2024 09:47 AM EST ? Dictated By: ?Alejo Bravo MD ? Signed By: ?<Electronically signed by Alejo Bravo MD in OV> ?10/09/2447 ? DD/ ? TD/TT: 10/09/[address] ? Manager Union: ? Procedure Note Felix, Leandra - 10/09/2024 [place] [address] XRay Report Signed Patient: Gwen Humphreys#: [id number] : 1960Acct:[id number] Age/Sex: 64 / FADM Date: 10/05/24 Loc: HO.SSS Attending Dr: Tiffani Portillo MD Ordering Physician: Rosa Starkey MD Date of Service: 10/09/24 Procedure(s): XR shoulder RT min 2V Accession Number(s): [id number] cc: Rosa Starkey MD; Name,Best ROCA EXAMINATION: [...] Alejo Bravo MD in OV> 10/09/2447 DD/ TD/TT: 10/09/24 09 Manager Union: Rosa Starkey MD IMG XR PROCEDURES Edited R esult - Final * Influenza B (ID NOW Rapid Molecular) (09/12/2024 6:22 PM EST) Only the most recent of2 resultswithin the time period is included. Influenza B Negative Negative, Indeterminate [facility] Swab 09/12/2024 6:22 PM EST Laura Don WELLNESS GUIDE POINT OF CARE TEST ENTER/EDIT O RDERABLES Final Result Performing Organization Address [facility] Co de Phone Number [facility] [address] [place] [phone] * Influenza A (ID NOW Rapid Molecular) (09/12/2024 6:21 PM EST) Only the most recent of2 resultswithin the time period is included. Influenza A Negative Negative, Indeterminate [facility] Swab 09/12/2024 6:21 PM EST Laura Appram WELLNESS GUIDE POINT OF CARE TEST ENTER/EDIT O RDERABLES Final Result Performing Organization Address [facility] Co de Phone Number [facility] [address] [place] [phone] * POCT rapid strep A manually resulted (09/12/2024 6:15 PM EST) [facility] Rapid Strep A Screen Negative Negative, None Detected Swab 09/12/2024 6:15 PM EST us Laura Don WELLNESS GUIDE POINT OF CARE TEST ENTER/EDIT O RDERABLES Final Result * POCT Rapid COVID Ag (09/12/2024 6:15 PM EST) [facility] Rapid COVID Ag Negative Swab 09/12/2024 6:15 PM EST us Laura Don WELLNESS GUIDE POINT OF CARE TEST ENTER/EDIT O RDERABLES Final Result * MR Knee w/o Contrast Right (08/19/2024 5:45 PM EST) Anatomical Region Laterality Modality Magnetic Resonan ce 08/19/2024 5:45 PM EST Narrative 08/23/2024 3:39 PM EST ? [facility] ?[address] ?[place] [address] ? Magnetic Resonance Report ? Signed ? Patient: Cathy Humphreys ?MR#: ?? [id number] ? : 1960 ?Acct:[id number] ? Age/Sex: 63 / F ?ADM Date: 08/19/24 ? Loc: HO.MRI ? Attending Dr: Best Marcelo MD ? Ordering Physician: Best Marcelo MD ?? Date of Service: 08/19/24 ?? Procedure(s): MR knee RT wo con ?? Accession Number(s): [id number] ? cc: Best Marcelo MD ? EXAMINATION: [...] DD/ 1745 ? TD/TT: 08/19/24 1824 ? Manager Union: DM ? Procedure Note Felix, Image - 08/23/[address] [address] Magnetic Resonance Report Signed Patient: Gwen Humphreys#: [id number] : 1960Acct:[id number] Age/Sex: 63 / FADM Date: 08/19/24 Loc: HO.MRI Attending Dr: Best Marcelo MD Ordering Physician: Best Marcelo MD Date of Service: 08/19/24 Procedure(s): MR knee RT wo con Accession Number(s): [id number] cc: Name,Best ROCA EXAMINATION: MR KNEE WITHOUT CONTRAST, RIGHT CLINICAL [...] R Joy MD 08/23/2024 03:37 PM EST Dictated By: Jose R Joy MD Signed By: <Electronically signed by Jose R Joy MD inOV> 08/23/24 1537 DD/ 1745 TD/TT: 08/19/24 1824 Manager Union: SHYANNE Best Marcelo MD [facility] MRI PROCEDURES Final Result * POCT COVID-19 [...] EST Narrative 07/24/2024 9:16 AM EST ? [facility] ? [address] ?[place] [address] ? Mammography Report ? Signed ? Patient: Fuller Melguizo,Cathy ?MR#: ?? [id number] ? : 1960 ?Acct:[id number] ? Age/Sex: 63 / F ?ADM Date: 07/13/24 ? Loc: HO.MAMMO ? Attending Dr: Best Name MD ? Ordering Physician: Name,Best MD ?Results: 1Negative ? Date of Service: 07/13/24 ?Follow Up: 1 Year From Orig ?? inal Mammogram ? Procedure(s): MM tomosynthesis screening BI ?? Accession Number(s): [id number] ? cc: Name,Best ? EXAMINATION: ?? MM SCREENING DIGITAL BREAST [...] ??Joseline Walter DO ??07/24/2024 09:13 AM EST ? Dictated By: ?Joseline Walter DO ? Signed By: ?<Electronically signed by Joseline Walter, DO in OV> ? 07/24/24 0913 ? DD/ 1424 ? TD/TT: 07/13/24 1440 ? Manager Union: ? Procedure Note Felix, Image - 07/24/2024 [facility] [address] [place] [address] [place] [address] Mammography Report Signed Patient: Yasmin HumphreysyMR#: [id number] : 1960Acct:[id number] Age/Sex: 63 / FADM Date: 07/13/24 Loc: JOSE MARIA Attending Dr: Best Marcelo MD Ordering Physician: Best Marceloults: 1Negative Date of Service: 07/13/24Follow Up: 1 Year From Orig inal Mammogram Procedure(s): MM tomosynthesis screening BI Accession Number(s): [id number] cc: NameBest MD EXAMINATION: MM SCREENING DIGITAL BREAST TOMOSYNTHESIS, [...] by: Joseline Walter DO 07/24/2024 09:13 AM [facility] Dictated By: Joseline Walter DO Signed By: <Electronically signed by Joseline Walter DO in OV> 07/24/24 0913 DD/ 1424 TD/TT: 07/13/24 1440 Manager Union: Best Marcelo MD IM BI PROCEDURES Final Result * (ABNORMAL) Lipid Panel, Standard (12/15/2023 11:23 AM EDT) Triglycerides 148 <150 mg/dL [facility] Comment:Desirable Triglyceri de: less than 150 mg/dLBorderline High Triglyceride 150-199 mg/dLHigh Triglyceride: 200-499 mg/dLVery High Triglyceride: greater than or equal to 5OO mg/dL Cholesterol 194 <200 mg/dL [facility] Comment:Desirable Cholestero l: less than 200 mg/dLBorderline High Cholesterol: 200-239 mg/dLHigh Cholesterol: greater than 239 mg/dL LDL Cholesterol Calculated 108(H) <100 mg/dL [facility] Comment:Desirable LDL: less than 100 mg/dLNear Optimal/Above Optimal LDL: 110- 129 mg/dLBorderline High LDL: 130-159 mg/dLHigh LDL: 160-189 mg/dLVery High LDL: greater than or equal to 190 mg/dL HDL Cholesterol 57 >40 mg/dL [facility] Comment:Desirable HDL: great er than 40 mg/dL Note: This HDL assay may give artificially low results in patients with liver disease. Blood Venous blood specimen / Unknown 12/15/2023 11:23 AM EDT 12/15/2023 1:16 PM EDT Best Marcelo MD LAB BLOOD ORDERABLES Final Resul t [facility] [address] [place] [phone] * HEPATITIS C AB W/REFL TO [...] a test for HCV RNA (test code 05339) is suggested. ?? For additional information please refer to http://education.[employer] [place]/faq/ZOS90p9 (This link is being provided for informational/ educational purposes only.) ?? 07/14/2022 3:30 PM EST Michell Epperson CNM HISTORICAL/NON ORDERABLE LABS Final Result CONVERTED LEGACY LABS * THINPREP TIS PAP AND HPV mRNA E6/E7, CT/NG, TRICH (07/14/2022 3:03 PM EST) Chlamydia trachomatis RNA, TMA, Urogenital NOT DETECTED NOT DETECTED CONVERTED LEGACY LABS Clinical Information: NIL NEG 2014 CONVERTED LEGACY LABS COMMENT SEE COMMENT CONVERTE D LEGACY LABS Comment: The analytical performance characteristics of this assay, when used to test SurePath(TM) specimens have been determined by [employer]. The modifications have not been cleared or approved by the FDA. This assay has been validated pursuant to the CLIA regulations and is used for clinical purposes. ?? For additional information, please refer to https://[employer].[place] [employer] [place]/faq/DET232 (This link is being provided for information/ educational purposes only.) ?? COMMENT SEE COMMENT [facility]VER[facility]GACY LABS Comment: EXPLANATORY NOTE: ? The Pap is [...] been evaluated with computer assisted technology. CONVERTED LEGACY LABS Veneer Trimmer: SEE COMMENT CONVERTED LEGACY LABS Comment: MSM, CT(ASCP) CT screening location: [address] ??[address] HPV nRNA E6/E7 Not Detected Not Detected CONVERTED LEGACY LABS Comment: Methodology: Straight Truck Driver-Mediated Amplification This assay detects E6/E7 viral messenger RNA (mRNA) from 14 high-risk HPV types (16,18,31,33,35,39,45,51,52,56,58,59,66,68). ? Cervical sources are required for HPV testing. If a vaginal source from a patient who has had a total hysterectomy with removal of cervix was ?? submitted, please contact the testing laboratory for alternative testing options. ?? For additional information, please refer to http://education.[employer] [employer] [place]/faq/PNQ997r7 (This link if provided for information/ educational [...] of this assay have been determined by [employer]. The modifications have not been cleared or approved by the FDA. This assay has been validated pursuant to the CLIA regulations and is used for clinical purposes. ?? For additional information, please refer to http://education.[employer] [employer] [place]/ faq/Trichomonastma (This link is being provided for information/ educational purposes only.) ?? 07/14/2022 3:03 PM EST Michell Epperson CNM LAB PATHOLOGY ORDERABLES Final Result Performing Organization Address City/State/[facility] Co de Phone Number CONVERTED LEGACY LABS from Last 3 Months or Most Recently Relevant to Health Maintenance Insurance [address] [place] [address] [place] [address] [place] [address] [place] [phone] [facility] [place]AND[place] STAND ADULT Care Teams Weight Checker Relationship Specialty Start Date End Date Name, MD Best [address] [place] [address] PCP - General Family Medicine 11/07/15
--- OUTSIDE RECORDS SUMMARY | 2024-11-02 13:56 | XMS_ITS | Encounter Summary ---
Author Organization [employer] Address [address] [facility] 7t [place] [address] Care Team Providers Care Emergency Department Rn Name Role Phone Name, Best ROCA Primary Care Provider [phone] Reason for Visit * Reason Onset Date Comments Appointment Request 06/12/2024 Encounter Details Date Type Department Care Team ([facility] st Contact Info) Description 06/12/2024 Telephone [facility] MEDICINE [address] [place], [place] [phone] Name, MD Best [address] [place], [place] [phone] Appointment Request Social History Tobacco Use Types [...] to r/s today's follow up. No availability. Neurosurgical Nurse Practitioner advised will send a message. Contact pt at [phone] documented in this encounter Plan of Treatment Upcoming Encounters Date Type Department Care Team (Late st Contact Info) Description 11/06/2024 1:00 PM EST Office Visit [address] [address] NameBest MD [address] [place] [address] 01/21/2025 2:45 PM EDT Office Visit [address] [address] NameBest MD [address] [place] [address] documented as of this encounter Visit Diagnoses Not on filedocumented in this encounter Additional Health Concerns Assessment Noted Time PHQ-9 Depression Total Score: 0 12/30/19 23 9:03 AM EDT documented as of this encounter Care Teams Emergency Department Rn Relationship Specialty Start Date End Date Best Marcelo MD [address] [place] [address] PCP - General Family Medicine 11/07/15 documented as of this encounter
--- OUTSIDE RECORDS SUMMARY | 2024-11-02 13:56 | XMS_ITS | Encounter Summary ---
Author Organization [facility] [employer] [facility] Address [address] [facility] 7t [place] [address] Care Team Providers Care Manager Sales And Marketing Name Role Phone Name, Best ROCA Primary Care Provider [phone] Encounter Details Date Type Department Care Team (Latest Contact Info) Description 01/04/2022 Abstract [facility] CONVERSIONS Dental, Provider, DDS Social History [...] 1:00 PM EST Office Visit [facility] MEDICINE [address] [place] [address] Best Marcelo MD [address] [place] [address] 01/21/2025 2:45 PM EDT Office Visit [facility] MEDICINE [address] [place] [address] Best Marcelo MD [address] [place] [address] documented as of this encounter Visit Diagnoses Not on filedocumented in this encounter Care Teams Manager Sales And Marketing Relationship Specialty Start Date End Date Best Marcelo MD [address] [place] [address] 61885 PCP - General Family Medicine 11/07/15 documented as of this encounter
--- OUTSIDE RECORDS SUMMARY | 2024-11-02 13:56 | XMS_ITS | Encounter Summary ---
Author Organization [facility] [employer] [facility] Address [address] [facility] 7t [place] [address] Care Team Providers Care Gear Straightener Name Role Phone Name, Best ROCA Primary Care Provider [phone] Encounter Details Date Type Department Care Team (Latest Contact Info) Description 01/01/2021 Abstract [facility] CONVERSIONS Dental, Provider, DDS Social History Tobacco [...] PM EST Office Visit [facility] MEDICINE [address] [place] [address] Best Marcelo MD [address] [place] [address] 01/21/2025 2:45 PM EDT Office Visit [facility] MEDICINE [address] [place] [address] Best Marcelo MD [address] [place] [address] 922[address] documented as of this encounter Visit Diagnoses Not on filedocumented in this encounter Care Teams Gear Straightener Relationship Specialty Start Date End Date Best Marcelo MD [address] [place] [address] PCP - General Family Medicine 11/07/15 documented as of this encounter
--- OUTSIDE RECORDS SUMMARY | 2024-11-02 13:56 | XMS_ITS | Encounter Summary ---
Author Organization [employer] Address [address] [facility] [address] [address] 7t [place] [address] Care Team Providers Care Psychiatric Nurse Name Role Phone Name, Best ROCA Primary Care Provider [phone] Reason for Visit * Reason Comments Med Refill Encounter Details Date Type Department Care Team ([facility] st Contact Info) Description 08/20/2023 Refill [facility] [address] [place], [place] [phone] Jason Lopes FNP Viral URI Social History [...] Description 11/06/2024 1:00 PM EST Office Visit [facility] [address] [place] [address] NameBest MD [address] [place] [address] 01/21/2025 2:45 PM EDT Office Visit [facility] [address] [place] [address] 96283 NameBest MD [address] [place] [address] documented as of this encounter Visit Diagnoses Diagnosis Viral URI Acute upper respiratory infections of unspecified site documented in this encounter Additional Health Concerns Assessment Noted Time PHQ-9 Depression Total Score: 0 12/30/19 23 9:03 AM EDT documented as of this encounter Care Teams Psychiatric Nurse Relationship Specialty Start Date End Date NameBest MD [address] [place] [address] 9[address] PCP - General Family Medicine 11/07/15 documented as of this encounter
--- OUTSIDE RECORDS SUMMARY | 2024-11-02 13:56 | XMS_ITS | Encounter Summary ---
Author Organization [employer] Address [address] 7t [place] [address] Care Team Providers Care Tentering Machine Off Bearer Name Role Phone Name, Best ROCA Primary Care Provider [phone] Encounter Details Date Type Department Care Team (Late st Contact Info) Description 03/27/2024 Telephone [facility] MEDICINE 230 [place], [place] [phone] Name, MD Best 230 [place], [place] [phone] Social History Tobacco Use Types Packs/Day Years [...] PM EDT FYI T/C to pt. Through MyEdu id - [id number] for below message, No answer. Not able [...] Office Visit [facility] MEDICINE [address] [place] [address] NameBest MD [address] [place] [address] 01/21/2025 2:45 PM EDT Office Visit [facility] MEDICINE [address] [place] [address] Best Marcelo MD [address] [place] [address] documented as of this encounter Visit Diagnoses Not on filedocumented in this encounter Additional Health Concerns Assessment Noted Time PHQ-9 Depression Total Score: 0 12/30/19 9:03 AM EDT documented as of this encounter Care Teams Tentering Machine Off Bearer Relationship Specialty Start Date End Date Best Marcelo MD 230 [place] [address] PCP - General Family Medicine 11/07/15 documented as of this encounter
--- OUTSIDE RECORDS SUMMARY | 2024-11-02 13:56 | XMS_ITS | Encounter Summary ---
Author Organization [employer] Address [address] [facility] 7t [place] [address] Care Team Providers Care Grey Tender Name Role Phone Name, Best ROCA Primary Care Provider [phone] Reason for Visit * Reason Comments Arm Pain Encounter Details Date Type Department Care Team ([facility] st Contact Info) Description 10/09/2024 8:40 AM EST Office Visit [facility] 230 [place], [place] [phone] Rosa Starkey MD 230 [place] [address] Acute pain of right shoulder (Primary Dx); [...] EST Office Visit [facility] [place] [address] [place] [address] 01/21/2025 2:45 PM EDT Office Visit [facility] [place] [address] [place] [address] documented as of this encounter Procedures Procedure [...] EST Narrative 10/09/2024 9:50 AM EST ? [facility] ?[address] ?[place] [address] ?XRay Report ? Signed ? Patient: Fuller Melguizo,Cathy ?MR#: ?? [id number] ? : 1960 ?Acct:[id number] ? Age/Sex: 64 / F ?ADM Date: 10/05/24 ? Loc: HO.SSS ? Attending Dr: Tiffani Portillo MD ? Ordering Physician: Rosa Starkey MD ?? Date of Service: 10/09/24 ?? Procedure(s): XR shoulder RT min 2V ?? Accession Number(s): [id number] ? cc: Rosa Starkey MD; Name,Best ROCA [...] ? DD/ 9 ? TD/TT: 10/09/24929 ? Heavy Equipment Sales Manager: ? Procedure Note Donzehrater, Image - 10/09/2024 [place] [address] XRay Report Signed Patient: Yasmin HumphreysyMR#: [id number] : 1960Acct:[id number] Age/Sex: 64 / FADM Date: 10/05/24 Loc: HO.SSS Attending Dr: Tiffani Portillo MD Ordering Physician: Rosa Starkey MD Date of Service: 10/09/24 Procedure(s): XR shoulder RT min 2V Accession Number(s): [id number] cc: Rosa Starkey MD; Name,Best ROCA EXAMINATION: [...] in OV> 10/09/24946 DD/ 9 TD/TT: 10/09/24929 Heavy Equipment Sales Manager: Rosa Starkey MD IMG XR PROCEDURES Edited R esult - Final documented in this encounter Visit Diagnoses Diagnosis Acute pain of right shoulder- Primary Radiculopathy, unspecified spinal region documented in this encounter Additional Health Concerns Assessment Noted Time PHQ-9 Depression Total Score: 6 06/22/20 24 1:53 PM EDT documented as of this encounter Care Teams Grey Tender Relationship Specialty Start Date End Date Name, MD Best 230 [place] [address] PCP - General Family Medicine 11/07/15 documented as of this encounter
--- OUTSIDE RECORDS SUMMARY | 2024-11-02 13:56 | XMS_ITS | Encounter Summary ---
Author Organization [employer] Address [address] 7t [place] [address] Care Team Providers Care Production Machine Tender Name Role Phone Name, Best ROCA Primary Care Provider [phone] Reason for Visit * Reason Onset Date Comments Apirl Recalls 10/25/2024 Encounter Details Date Type Department Care Team (Late st Contact Info) Description 10/25/2024 Telephone [facility] MEDICINE [address] [facility] [place], [place] [phone] Rochelle Gaona [place] Apirl Recalls Social History [...] encounter Miscellaneous Notes * Telephone Encounter - Rochelle Gaona MA - 10/25/2024 1:25 PM EST Telephone call to patient to schedule the following recall: Visit type: Physical Appointment notes: HTN and Physical Patient agree to appointment on 10/25/24 at 2:45 PM with Name. documented in this encounter Plan of Treatment Upcoming Encounters Date Type Department Care Team (Late st Contact Info) Description 11/06/2024 1:00 PM EST Office Visit [address] [address] Best Marcelo MD [address] [place] [address] 01/21/2025 2:45 PM EDT Office Visit [facility] MEDICINE [address] [place] [address] Best Marcelo MD [address] [place] [address] documented as of this encounter Visit Diagnoses Not on filedocumented in this encounter Additional Health Concerns Assessment Noted Time PHQ-9 Depression Total Score: 6 06/22/20 24 1:53 PM EDT documented as of this encounter Care Teams Production Machine Tender Relationship Specialty Start Date End Date Best Marcelo MD 230 [place] [address] PCP - General Family Medicine 11/07/15 documented as of this encounter
--- OUTSIDE RECORDS SUMMARY | 2024-11-02 13:56 | XMS_ITS | Encounter Summary ---
Author Organization [employer] [facility] Address [address] [facility] 7t h Floor [place] [phone] Care Team Providers Care Fibre Optic Cable Splicer Name Role Phone Name, Best ROCA Primary Care Provider [phone] Encounter Details Date Type Department Care Team (Late Contact Info) Description 02/28/2023 Abstract [facility] 230 [place], [place] [phone] Alex Yusuf DDS 230 [place], [place] [phone] Social History Tobacco Use Types Packs/Day Years [...] Description 11/06/2024 1:00 PM EST Office Visit [facility] MEDICINE 230 [place], [place] [phone] Name, MD Best 230 [place], [place] [phone] 01/21/2025 2:45 PM EDT Office Visit [facility] MEDICINE 230 [place] [address] Name, MD Best [address] [place] [address] documented as of this encounter Visit Diagnoses Not on filedocumented in this encounter Additional Health Concerns Assessment Noted Time PHQ-9 Depression Total Score: 0 12/30/19 23 9:03 AM EDT documented as of this encounter Care Teams Fibre Optic Cable Splicer Relationship Specialty Start Date End Date Name, MD Best [address] [place] [address] PCP - General Family Medicine 11/07/15 documented as of this encounter
--- OUTSIDE RECORDS SUMMARY | 2024-11-02 13:56 | XMS_ITS | Encounter Summary ---
Author Organization [employer] Address [address] [facility] 7t [place] [address] Care Team Providers Care Expense Analyst Name Role Phone Name, Best ROCA Primary Care Provider [phone] Reason for Visit * Reason Onset Date Comments triage 10/19/2022 Encounter Details Date Type Department Care Team ([facility] st Contact Info) Description 10/19/2022 Telephone [facility] MEDICINE 230 [place], [place] [phone] Name, MD Best 230 [place] [address] triage Social History Tobacco Use Types Packs/Day [...] question The caller accepted this outcome speaks yakut documented in this encounter Plan of Treatment Upcoming Encounters Date Type Department Care Team (Late st Contact Info) Description 11/06/2024 1:00 PM EST Office Visit [address] [address] Name, MD Best [address] [place] [address] 01/21/2025 2:45 PM EDT Office Visit [address] [address] Name, MD Best [address] [place] [address] documented as of this encounter Visit Diagnoses Not on filedocumented in this encounter Care Teams Expense Analyst Relationship Specialty Start Date End Date NameBest MD [address] [place] [address] PCP - General Family Medicine 11/07/15 documented as of this encounter
--- OUTSIDE RECORDS SUMMARY | 2024-11-02 13:56 | XMS_ITS | Encounter Summary ---
Author Organization [employer] [facility] Address [address] [facility] 7t [place] [address] Care Team Providers Care Legal Mediator Name Role Phone Name, Best ROCA Primary Care Provider [phone] Encounter Details Date Type Department Care Team (Latest Contact Info) Description 10/19/[address] [facility] CONVERSIONS Dental, Provider, DDS Social [...] 11/06/2024 1:00 PM EST Office Visit [facility] MEDICINE [address] [place] [address] Best Marcelo MD [address] [place] [address] 478[address] 01/21/2025 2:45 PM EDT Office Visit [facility] MEDICINE [address] [place] [address] Best Marcelo MD [address] [place] [address]45 documented as of this encounter Visit Diagnoses Not on filedocumented in this encounter Care Teams Legal Mediator Relationship Specialty Start Date End Date Best Marcelo MD [address] [place] [address] 53416 PCP - General Family Medicine 11/07/15 documented as of this encounter
== END 2024-11-02 11:58 | disposition home or self-care (01) ==
PROVIDERS: PCP Internal Medicine Geriatric Medicine; Visit Provider Orthopaedic Surgery
DX: M17.11 Unilateral primary osteoarthritis, right knee (principal)
CPT/HCPCS: 20610

== ENCOUNTER → 2024-11-02 11:36 | Outpatient (BNVA) | payer MEDICARE, SELFPAY | PROVIDERS: PCP Internal Medicine Geriatric Medicine; Visit Provider Orthopaedic Surgery | DX: M17.11 Unilateral primary osteoarthritis, right knee (principal) | CPT/HCPCS: 20610; J7323 ==

== ENCOUNTER 2024-11-13 12:29 | Outpatient (REF) | payer MEDICARE, SELFPAY ==
[2024-11-13 14:27] LABS: Alanine Aminotransferase 27 U/L (0-31); Alkaline Phosphatase 125 U/L (39-117); Anion Gap 12 (12-20); Aspartate Amino Transferase 17 U/L (5-31); Bilirubin Total 0.6 mg/dL (0.0-1.0); Blood Urea Nitrogen 22 mg/dL (9-16); Calcium 9.7 mg/dL (8.4-10.2); Carbon Dioxide 28 mmol/L (22-29); Chloride 106 mmol/L (96-108); Cholesterol 158 mg/dL (<200); Estimated Glomerular Filt Rate > 60; Glucose Random 87 mg/dL (60-115); HDL Cholesterol 52 mg/dL (>40); LDL Cholesterol Calculated 75 mg/dL (<100); Potassium 4.5 mmol/L (3.3-5.1); Sodium 141 mmol/L (135-145); Total Protein 7.3 g/dL (6.5-8.0); Triglycerides 158 mg/dL (<150)
--- OUTSIDE RECORDS SUMMARY | 2024-11-13 15:04 | XMS_ITS | Encounter Summary ---
Author Organization [employer] Address [address] [facility] [address] [facility] [address] 7t [place] [address] Care Team Providers Care Pit Crane Operator Name Role Phone Name, Best ROCA Primary Care Provider [phone] Reason for Visit * Reason Onset Date Comments Apirl Recalls 10/25/2024 Encounter Details Date Type Department Care Team (Late st Contact Info) Description 10/25/2024 Telephone [facility]INE [facility] [place], [place] [phone] Rochelle Gaona [place] Apirl Recalls Social History [...] Care Team (Late st Contact Info) Description 01/21/2025 2:45 PM EDT Office Visit [facility] MEDICINE [address] [place] [address]38 NameBest MD 230 [place] [address] documented as of this encounter Visit Diagnoses Not on filedocumented in this encounter Additional Health Concerns Assessment Noted Time PHQ-9 Depression Total Score: 6 06/22/20 24 1:53 PM EDT documented as of this encounter Care Teams Pit Crane Operator Relationship Specialty Start Date End Date NameBest MD [address] [place] [address] PCP - General Family Medicine 11/07/15 documented as of this encounter
--- OUTSIDE RECORDS SUMMARY | 2024-11-13 15:04 | XMS_ITS | Encounter Summary ---
Author Organization [employer] Address [address] [facility] [facility] [address] 7t [place] [address] Care Team Providers Care Rail Track Maintainer Name Role Phone Name, Best ROCA Primary Care Provider Reason for Visit * Reason Comments Med Refill Encounter Details Date Type Department Care Team ([facility] st Contact Info) Description 11/12/2024 Refill [facility] MEDICINE 230 [place], [place] [phone] Name, MD Best 230 [place] [address] Mild intermittent asthma with exacerbation Social History Tobacco Use Types Packs/Day Years [...] Description 01/21/2025 2:45 PM EDT Office Visit [facility] MEDICINE [address] [place] [address] Name, MD Best 230 [place] [address] documented as of this encounter Visit Diagnoses Diagnosis Mild intermittent asthma with exacerbation Unspecified asthma, with exacerbation documented in this encounter Additional Health Concerns Assessment Noted Time PHQ-9 Depression Total Score: 6 06/22/20 24 1:53 PM EDT documented as of this encounter Care Teams Rail Track Maintainer Relationship Specialty Start Date End Date Best Marcelo MD [address] [place] [address] PCP - General Family Medicine 11/07/15 documented as of this encounter
--- OUTSIDE RECORDS SUMMARY | 2024-11-13 15:04 | XMS_ITS | Encounter Summary ---
Author Organization [employer] Address [address] [facility] 7t [place] [address] Care Team Providers Care Carpenter Foreman Name Role Phone Name, Best ROCA Primary Care Provider [phone] Reason for Visit * Reason Onset Date Comments Medication Question 07/26/2023 Encounter Details Date Type Department Care Team ([facility] st Contact Info) Description 07/26/2023 Telephone [facility] MEDICINE 230 [place], [place] [phone] Mikael Olivares MD 230 [place], [place] [phone] Medication Question Social History Tobacco Use Types [...] encounter Miscellaneous Notes * Telephone Encounter - Mounika Rodriguezsunil Webber - 07/26/2023 3:43 PM EST Tc from pt requesting a call in regards to medications prescribe for Cough: benzonatate (Tessalon Perles) 100 MG capsule and benzonatate (Tessalon) 100 MG capsule. Pt states that medication is not covered by her insurance is requesting if she could be prescribed: Meredith Tussin which was prescribed before for cough by her PCP Please contact pt at [phone] Armenian Speaker documented in this encounter Plan of Treatment Upcoming Encounters Date Type Department Care Team (Late st Contact Info) Description 01/21/2025 2:45 PM EDT Office Visit [facility] MEDICINE [address] [place] [address] Name, MD Best 230 [place] [address] documented as of this encounter Visit Diagnoses Not on filedocumented in this encounter Additional Health Concerns Assessment Noted Time PHQ-9 Depression Total Score: 0 12/30/19 23 9:03 AM EDT documented as of this encounter Care Teams Carpenter Foreman Relationship Specialty Start Date End Date Name, MD Best [address] [place] [address] PCP - General Family Medicine 11/07/15 documented as of this encounter
--- OUTSIDE RECORDS SUMMARY | 2024-11-13 15:04 | XMS_ITS | Encounter Summary ---
Author Organization [employer] Address [address] [facility] [address] 7t [place] [address] Care Team Providers Care Rural Route Mail Carrier Name Role Phone Name, Best ROCA Primary Care Provider [phone] Encounter Details Date Type Department Care Team (Late st Contact Info) Description 10/24/2024 Orders Only [facility] External Provider, [facility] Social History Tobacco Use Types Packs/Day [...] t he electric, gas, oil or water pocketvillage threatened to shut off services in your [...] Description 01/21/2025 2:45 PM EDT Office Visit [facility] MEDICINE 230 [place] [address] Name, MD Best 230 [place] [address] documented as of this encounter Procedures Procedure Name Priority Date/Time Associated Diagnosis Comments US RENAL BI Routine 10/25/2024 12:01 PM EST documented in this encounter Results * US RENAL BI (10/25/2024 12:01 PM EST) Anatomical Region Laterality Modality Abdomen Ultrasound 10/25/2024 12:0 1 PM EST Narrative 10/25/2024 12:02 PM EST ? [facility] ?[address] ?[place] [address] ? Ultrasound Report ? Signed ? Patient: Fuller Melguizo,Cathy ?MR#: ?? [id number] ? : 1960 ?Acct:[id number] ? Age/Sex: 64 / F ?ADM Date: //25 ? Loc: HO.US ? Attending Dr: Priscilla Mills MD ? Ordering Physician: Priscilla Mills MD ?? Date of Service: 10/24/24 ?? Procedure(s): US renal BI ?? Accession Number(s): [id number] ? cc: Priscilla Mills MD; Name,Best ROCA [...] DD/ 1201 ? TD/TT: 10/25/24 1201 ? Lightning Rod Erector: ? Procedure Note Donzehrater, Image - 10/25/2024 [place] [address] Ultrasound Report Signed Patient: Gwen Humphreys#: [id number] : 1960Acct:[id number] Age/Sex: 64 / FADM Date: 10/24/24 Loc: HO.US Attending Dr: Priscilla Mills MD Ordering Physician: Priscilla Mills MD Date of Service: 10/24/24 Procedure(s): US renal BI Accession Number(s): [id number] cc: Priscilla Mills MD; Name,Best ROCA CLINICAL [...] 10/25/24 1201 DD/ 1201 TD/TT: 10/25/24 1201 Lightning Rod Erector: [facility] External Provider IMG US PROCEDURES Final Result documented in this encounter Visit Diagnoses Not on filedocumented in this encounter Additional Health Concerns Assessment Noted Time PHQ-9 Depression Total Score: 6 06/22/20 24 1:53 PM EDT documented as of this encounter Care Teams Rural Route Mail Carrier Relationship Specialty Start Date End Date Name, MD Best 230 [place] [address] PCP - General Family Medicine 11/07/15 documented as of this encounter
--- OUTSIDE RECORDS SUMMARY | 2024-11-13 15:04 | XMS_ITS | Encounter Summary ---
Author Organization [employer] Address [address] [facility] [address] 7t [place] [address] Care Team Providers Care Fixture Maker Name Role Phone Name, Best ROCA Primary Care Provider [phone] Reason for Visit * Reason Comments Med Refill Encounter Details Date Type Department Care Team ([facility] st Contact Info) Description 11/03/2024 Refill [facility] MEDICINE 230 [place], [place] [phone] Monica Russ MD 230 [place], [place] [phone] Heartburn Social History Tobacco Use Types Packs/Day Years [...] Description 01/21/2025 2:45 PM EDT Office Visit [facility] MEDICINE [address] [place] [address] Name, MD Best 230 [place] [address] documented as of this encounter Visit Diagnoses Diagnosis Heartburn documented in this encounter Additional Health Concerns Assessment Noted Time PHQ-9 Depression Total Score: 6 06/22/20 24 1:53 PM EDT documented as of this encounter Care Teams Fixture Maker Relationship Specialty Start Date End Date Name, MD Best [address] [place] [address] PCP - General Family Medicine 11/07/15 documented as of this encounter
--- OUTSIDE RECORDS SUMMARY | 2024-11-13 15:04 | XMS_ITS | Encounter Summary ---
Author Organization [employer] [facility] Address [address] [facility] 7t [place] [address] Care Team Providers Care Scalp Treatment Operator Name Role Phone Name, Best ROCA Primary Care Provider [phone] Encounter Details Date Type Department Care Team (Latest Contact Info) Description 01/01/2021 Abstract [facility] CONVERSIONS Dental, Provider, DDS Social History [...] Description 01/21/2025 2:45 PM EDT Office Visit [facility] MEDICINE 230 [place] [address] Name, MD Best 230 [place] [address] documented as of this encounter Visit Diagnoses Not on filedocumented in this encounter Care Teams Scalp Treatment Operator Relationship Specialty Start Date End Date Name, MD Best 230 [place] [address] PCP - General Family Medicine 11/07/15 documented as of this encounter
--- OUTSIDE RECORDS SUMMARY | 2024-11-13 15:04 | XMS_ITS | Encounter Summary ---
Author Organization [employer] Address [address] [facility] 7t [place] [address] Care Team Providers Care Strategic Partnership Manager Name Role Phone Name, Best ROCA Primary Care Provider [phone] Reason for Visit * Reason Onset Date Comments Appointment Request 06/12/2024 Encounter Details Date Type Department Care Team ([facility] st Contact Info) Description 06/12/2024 Telephone [facility] [address] [place], [place] [phone] Name, MD Best [address] [place], [place] [phone] Appointment Request Social History Tobacco Use Types [...] to r/s today's follow up. No availability. Hyster Driver advised will send a message. Contact pt at [phone] documented in this encounter Plan of Treatment Upcoming Encounters Date Type Department Care Team (Late st Contact Info) Description 01/21/2025 2:45 PM EDT Office Visit [facility] [address] [place] [address] Name, MD Best [address] [place] [address] documented as of this encounter Visit Diagnoses Not on filedocumented in this encounter Additional Health Concerns Assessment Noted Time PHQ-9 Depression Total Score: 0 12/30/19 23 9:03 AM EDT documented as of this encounter Care Teams Strategic Partnership Manager Relationship Specialty Start Date End Date Name, MD Best [address] [place] [address] PCP - General Family Medicine 11/07/15 documented as of this encounter
--- OUTSIDE RECORDS SUMMARY | 2024-11-13 15:04 | XMS_ITS | Encounter Summary ---
Author Organization [employer] Address [address] [facility] [address] [place] [address] Care Team Providers Care Manager Field Sales Name Role Phone Name, Best ROCA Primary Care Provider [phone] Reason for Visit * Reason Comments Med Refill Encounter Details Date Type Department Care Team ([facility] st Contact Info) Description 08/20/2023 Refill [facility] [address] [place], [place] [phone] Jason Lopes FNP Viral URI Social History [...] PM EDT Office Visit [facility] [address] [place] [address] NameBest MD [address] [place] [address] documented as of this encounter Visit Diagnoses Diagnosis Viral URI Acute upper respiratory infections of unspecified site documented in this encounter Additional Health Concerns Assessment Noted Time PHQ-9 Depression Total Score: 0 12/30/19 23 9:03 AM EDT documented as of this encounter Care Teams Manager Field Sales Relationship Specialty Start Date End Date NameBest MD [address] [place] [address] PCP - General Family Medicine 11/07/15 documented as of this encounter
--- OUTSIDE RECORDS SUMMARY | 2024-11-13 15:04 | XMS_ITS | Encounter Summary ---
Author Organization [employer] [facility] Address [address] [facility] 7t [place] [address] Care Team Providers Care Christmas Tree Contractor Name Role Phone Name, Best ROCA Primary Care Provider [phone] Encounter Details Date Type Department Care Team (Latest Contact Info) Description 01/04/2022 Abstract [facility] CON[facility] Dental, Provider, DDS Social History [...] Description 01/21/2025 2:45 PM EDT Office Visit [facility] [address] [place] [address] Name, MD Best [address] [place] [address] documented as of this encounter Visit Diagnoses Not on filedocumented in this encounter Care Teams Christmas Tree Contractor Relationship Specialty Start Date End Date Name, MD Best [address] [place] [address] PCP - General Family Medicine 11/07/15 documented as of this encounter
--- OUTSIDE RECORDS SUMMARY | 2024-11-13 15:04 | XMS_ITS | Clinical Summary ---
Author Organization [employer] Address [address] [facility] 7t [place] [address] Care Team Providers Care Precision Lens Grinder Apprentice Name Role Phone Name, Best ROCA Primary Care Provider [phone] Allergies Active Allergy Reactions Criticality Noted Date [...] 18 g 1 024 Active sodium chloride (Yulee Nasal Darfur) 0.65 % nasal sprayIndications: Mild intermittent asthma [...] DAY IN THE MORNING 90 tablet 1 Active albuterol (2.5 MG/3ML) 0.083% nebulizer solutionIndicatio ns:Mild intermittent asthma with exacerbation TAKE 3 ML (2.5 MG) VIA NEBULIZATION EVERY 6 HOURS NEEDED FOR WHEEZE 75 mL Active acetaminophen (Tylenol) 500 MG tablet 2 tablets Q4-6h2 tablets Q4-6h 30 tablet Active losartan-hydroCHL OROthiazide (Hyzaar) 50-12.5 MG tablet TAKE 1 TABLET BY MOUTH EVERY DAY 90 tablet 1 Active atorvastatin (Lipitor) 20 MG tabletIndications :Hyperlipidemia, unspecified hyperlipidemia type TAKE 1 TABLET BY MOUTH EVERY DAY IN THE MORNING 90 tablet 1 Active Lidocaine 5 % creamIndications: Acute pain of right shoulder Apply topically bid 30 g 3 025 Active pantoprazole (ProtoNix) 40 MG EC tabletIndications :Heartburn TAKE 1 TABLET BY MOUTH EVERY DAY 90 tablet Active celecoxib (CeleBREX) 200 MG capsule Take 1 capsule (200 mg) by mouth 2 times daily for 20 days. 40 capsule 3 025 2024 Active Diclofenac Sodium 1 % gel Apply thin layer by topical route (quantity as directed on package insert) to affected area of pain 3 times daily as needed. 50 g 3 025 Active fluticasone (Flonase) 50 MCG/ACT nasal sprayIndications: Mild intermittent asthma with exacerbation USE 1 SPRAY IN EACH NOSTRIL ONCE A DAY 48 mL 025 Active pantoprazole (ProtoNix) 40 MG EC tabletIndications :Heartburn TAKE 1 TABLET BY MOUTH EVERY DAY 90 tablet 2024 Discontinued fluticasone (Flonase) 50 MCG/ACT nasal sprayIndications: Mild intermittent asthma with exacerbation SPRAY 1 SPRAY INTO EACH NOSTRIL ONCE A DAY 48 mL 024 2024 Discontinued cyclobenzaprine (Flexeril) 5 MG tabletIndications :Acute pain of right shoulder 1 tab po at bedtime prn pain khmer 20 tablet 025 2024 Discontinued(T herapy completed) Active Problems Problem Noted Date Diagnosed Date [...] Encounters Date Type Department Care Team Description 11/12/2024 Refill [facility] [address] [place] [address] Name, MD Best Mild intermittent asthma with exacerbation 11/06/2024 1:00 PM EST Office Visit [facility] [address] [place] [address] Name, MD Best Primary hypertension (Primary Dx); Primary osteoarthritis of right knee; On statin therapy; Blurred vision, bilateral 11/03/2024 Refill [facility] [address] [place] [address] Monica Russ MD Heartburn 10/25/2024 Telephone [facility] [address] [place] [address] [place] Apirl Recalls 10/24/2024 Orders Only [facility] External Provider, [facility] 10/09/2024 8:40 AM EST [facility] [address] [address] Rosa Starkey MD Acute pain of right shoulder (Primary Dx); Radiculopathy, unspecified spinal region 09/24/2024 Refill [facility] [address] [place] [address] Best Marcelo MD Hyperlipidemia, unspecified hyperlipidemia type 09/12/2024 6:20 PM EST Office Visit [address] [address] Laura Don NP Cough in adult patient 09/12/2024 Travel 09/03/2024 Telephone [facility] [address] [place] [address] [place] Ga[place] talat recalls 08/27/2024 Orders Only [address] [address] Best Marcelo MD Chronic pain of right knee (Primary Dx); Old peripheral tear of meniscus of right knee, unspecified meniscus from Last 3 Months Immunizations Name Administration [...] Sign Reading Time Taken Comments Blood Pressure 116/79 11/06/2024 1:06 PM EST Pulse 85 11/06/2024 1:06 PM EST Temperature 36.6 ??C (97.8 ??F) 11/06/2024 1:06 PM ES T Respiratory Rate 14 11/06/2024 1:06 PM EST Oxygen Saturation 95% 11/06/2024 1:06 PM EST Inhaled Oxygen Concentration - - Weight 84.2 kg (185 lb 9.6 oz) 11/06/2024 1:06 P M EST Height 154.9 cm (5' 1 ) 11/06/2024 1:06 PM EST Body Mass Index 35.07 11/06/2024 1:06 PM EST Plan of Treatment Upcoming Encounters Date Type Department Care Team (Late st Contact Info) Description 01/21/2025 2:45 PM EDT Office Visit [facility] [address] [place] [address] Name, MD Best [address] [place] [address] Health Maintenance Due Date Last Done Comments [...] exists Pap Smear 07/14/2025 07/14/2022 Tobacco Screening 11/06/2025 11/06/2024 DTaP/Tdap/Td Vaccines (2 - Td or Tdap) 09/10/2026 09/10/2016 Cervical Cancer Screening 07/14/2027 HPV/Cotest 07/14/2027 07/14/2022 Lipid Panel 12/14/2028 11/13/2024, 12/15/2023 Hepatitis B Vaccines Completed 03/06/2013, 09/27/2012, [...] Procedure Name Priority Date/Time Associated Diagnosis Comments LIPID PANEL, STANDARD Routine 11/13/2024 12:31 PM EDT Primary hypertension On statin therapy COMPREHENSIVE METABOLIC PANEL Routine 11/13/2024 12:31 PM EDT Primary hypertension On statin therapy US RENAL BI Routine 10/25/2024 12:01 PM [...] PM EST Chronic pain of right knee BI MAMMOGRAM SCREENING TOMOSYNTHESIS BILATERAL Routine 07/13/2024 2:24 PM EST BITEWINGS - 4 RADIOGRAPHIC IMAGES Routine 02/24/2023 [...] Recently Relevant to Health Maintenance Results * (ABNORMAL) Lipid Panel, Standard (11/13/2024 12:31 PM EDT) Triglycerides 158(H) <150 mg/dL [facility] Comment:Desirable Triglyceri de: less than 150 mg/dLBorderline High Triglyceride 150-199 mg/dLHigh Triglyceride: 200-499 mg/dLVery High Triglyceride: greater than or equal to 5OO mg/dL Cholesterol 158 <200 mg/dL [facility] Comment:Desirable Cholestero l: less than 200 mg/dLBorderline High Cholesterol: 200-239 mg/dLHigh Cholesterol: greater than 239 mg/dL LDL Cholesterol Calculated 75 <100 mg/dL [facility] Comment:Desirable LDL: less than 100 mg/dLNear Optimal/Above Optimal LDL: 110- 129 mg/dLBorderline High LDL: 130-159 mg/dLHigh LDL: 160-189 mg/dLVery High LDL: greater than or equal to 190 mg/dL HDL Cholesterol 52 >40 mg/dL [facility] Comment:Desirable HDL: great er than 40 mg/dL Note: This HDL assay may give artificially low results in patients with liver disease. Blood Venous blood specimen / Unknown 11/13/2024 12:31 PM EDT 11/13/2024 1:08 PM EDT us Best Name MD LAB BLOOD ORDERABLES Final Resul t [facility] [address] [place] [address] [phone] * (ABNORMAL) Comprehensive Metabolic Panel (11/13/2024 12:31 PM EDT) Sodium 141 135 - 145 mmol/L [facility] Potassium 4.5 3.3 - 5.1 mmol/L [facility] Chloride 106 96 - 108 mmol/L [facility] Carbon Dioxide 28 22 - 29 mmol/L [facility] Anion Gap 12 12 - 20 [facility] Urea Nitrogen (BUN) 22(H) 9 - 16 mg/dL [facility] Creatinine, Serum 0.81 0.5 - 1.4 mg/dL [facility] Estimated Glomerular Filt Rate >60 [facility] Comment:Chronic Kidney Disea se: Estimated GFR < 60 mL/min/1.65c1Wwhqwn Kidney Disease: Estimated GFR < 15 mL/min/1.73m2 Glucose 87 60 - 115 mg/dL [facility] Calcium 9.7 8.4 - 10.2 mg/dL [facility] Bilirubin, Total 0.6 0.0 - 1.0 mg/dL [facility] Aspartate Amino Transferase 17 5 - 31 U/L [facility] Alanine Aminotransferase 27 0 - 31 U/L [facility] Total Protein 7.3 6.5 - 8.0 g/dL [facility] Albumin Level 4.0 3.5 - 5.0 g/dL [facility] Alkaline Phosphatase 125(H) 39 - 117 U/L [facility] Blood Venous blood specimen / Unknown 11/13/2024 12:31 PM EDT 11/13/2024 1:08 PM EDT us Best Marcelo MD LAB BLOOD ORDERABLES Final Resul t [facility] [address] [place] [address] [phone] * US RENAL BI (10/25/2024 12:01 PM EST) Anatomical Region Laterality Modality Abdomen Ultrasound 10/25/2024 12:0 1 PM EST Narrative 10/25/2024 12:02 PM EST ? [facility] ?[address] ?[place] [address] ? Ultrasound Report ? Signed ? Patient: Fuller Melguizo,Cathy ?MR#: ?? [id number] ? : 1960 ?Acct:[id number] ? Age/Sex: 64 / F ?ADM Date: 02/19/25 ? Loc: HO.US ? Attending Dr: Priscilla Mills MD ? Ordering Physician: Priscilla Mills MD ?? Date of Service: 10/24/24 ?? Procedure(s): US renal BI ?? Accession Number(s): [id number] ? cc: Priscilla Mills MD; Name,Best ROCA [...] DD/ 1201 ? TD/TT: 10/25/24 1201 ? Bridal Gown Fitter: ? Procedure Note Donzehrater, Image - 10/25/2024 [place] [address] Ultrasound Report Signed Patient: Gwen Humphreys#: [id number] : 1960Acct:[id number] Age/Sex: 64 / FADM Date: 10/24/24 Loc: HO.US Attending Dr: Priscilla Mills MD Ordering Physician: Priscilla Mills MD Date of Service: 10/24/24 Procedure(s): US renal BI Accession Number(s): [id number] cc: Priscilla Mills MD; Name,Best ROCA CLINICAL [...] 10/25/24 1201 DD/ 1201 TD/TT: 10/25/24 1201 Bridal Gown Fitter: us [facility] External Provider IMG US PROCEDURES Final Result * XR Shoulder 2+ Views Right (10/09/2024 9:10 AM EST) Anatomical Region Laterality Modality Upper Extremities, Shoulder Right Radi ographic Imaging 10/09/2024 9:10 AM EST Narrative 10/09/2024 9:50 AM EST ? [facility] ?[address] ?[place] [address] ?XRay Report ? Signed ? Patient: Fuller Melguizo,Cathy ?MR#: ?? [id number] ? : 1960 ?Acct:[id number] ? Age/Sex: 64 / F ?ADM Date: 10/05/24 ? Loc: HO.SSS ? Attending Dr: Tiffani Portillo MD ? Ordering Physician: Rosa Starkey MD ?? Date of Service: 10/09/24 ?? Procedure(s): XR shoulder RT min 2V ?? Accession Number(s): [id number] ? cc: Rosa Starkey MD; Best Marcelo [...] DD/ 0910 ? TD/TT: 10/09/24 0930 ? Bridal Gown Fitter: ? Procedure Note Donmonica, Image - 10/09/[address] [address] XRay Report Signed Patient: Gwen Humphreys#: [id number] : 1960Acct:[id number] Age/Sex: 64 / FADM Date: 10/05/24 Loc: HO.SSS Attending Dr: Tiffani Portillo MD Ordering Physician: Rosa Starkey MD Date of Service: 10/09/24 Procedure(s): XR shoulder RT min 2V Accession Number(s): [id number] cc: Rosa Starkey MD; Name,Best ROCA EXAMINATION: [...] in OV> 10/09/2447 DD/ 0910 TD/TT: 10/09/[address] Bridal Gown Fitter: Rosa Starkey MD IMG XR PROCEDURES Edited R esult - Final * Influenza B (ID NOW Rapid Molecular) (09/12/2024 6:22 PM EST) Influenza B Negative Negative, Indeterminate [facility] Swab 09/12/2024 6:22 PM EST us Sanchez Appram [facility] POINT OF CARE TEST ENTER/EDIT O RDERABLES Final Result Performing Organization Address [facility]/ZIP Co de Phone Number [facility] [address] [place] [phone] * Influenza A (ID NOW Rapid Molecular) (09/12/2024 6:21 PM EST) Pathologist [facility] Influenza A Negative Negative, Indeterminate [facility] Swab 09/12/2024 6:21 PM EST Laura Sharon [employer] POINT OF CARE TEST ENTER/EDIT O RDERABLES Final Result Performing Organization Address [facility] Co de Phone Number [facility] [address] [place] [phone] * POCT rapid strep A manually resulted (09/12/2024 6:15 PM EST) [facility] Rapid Strep A Screen Negative Negative, None Detected Swab 09/12/2024 6:15 PM EST Laura Sharon [employer] POINT OF CARE TEST ENTER/EDIT O RDERABLES Final Result * POCT Rapid COVID Ag (09/12/2024 6:15 PM EST) [facility] Rapid COVID Ag Negative Swab 09/12/2024 6:15 PM EST us Sanchez Sharonm [facility] [employer] POINT OF CARE TEST ENTER/EDIT O RDERABLES Final Result * MR Knee w/o Contrast Right (08/19/2024 5:45 PM EST) Anatomical Region Laterality Modality Magnetic Resonan ce 08/19/2024 5:45 PM EST Narrative 08/23/2024 3:39 PM EST ? [place] [facility] ?[address] ?[place] [address] ? Magnetic Resonance Report ? Signed ? Patient: Fuller Melguizo,Cathy ?MR#: ?? [id number] ? : 1960 ?Acct:[id number] ? Age/Sex: 63 / F ?ADM Date: 08/19/24 ? Loc: HO.MRI ? Attending Dr: Best Marcelo MD ? Ordering Physician: Best Marcelo MD ?? Date of Service: 08/19/24 ?? Procedure(s): MR knee RT wo con ?? Accession Number(s): [id number] ? cc: Best Marcelo MD ? EXAMINATION: [...] MD in OV> ? 08/23/247 ? DD/ 1745 ? TD/TT: 08/19/24 1824 ? Bridal Gown Fitter: DM ? Procedure Note Donotuseinterpreter, Image - 08/23/[address] [address] Magnetic Resonance Report Signed Patient: Gwen Humphryes#: [id number] : 1960Acct:[id number] Age/Sex: 63 / FADM Date: 08/19/24 Loc: HO.MRI Attending Dr: Best Marcelo MD Ordering Physician: Best Marcelo MD Date of Service: 08/19/24 Procedure(s): MR knee RT wo con Accession Number(s): [id number] cc: Best Marcelo MD EXAMINATION: MR KNEE [...] 08/23/24 1537 DD/ 1745 TD/TT: 08/19/24 1824 Bridal Gown Fitter: SHYANNE Best Marcelo MD IMMallorie MRI PROCEDURES Final Result * BI Mammogram Screening Tomosynthesis Bilateral (07/13/2024 2:24 PM EST) Anatomical Region Laterality Modality Breast Bilateral Mammography 07/13/2024 2:24 PM EST Narrative 07/24/2024 9:16 AM EST ? [facility] ? [address] ?[place] [address] ? Mammography Report ? Signed ? Patient: Fuller Melguabao,Cathy ?MR#: ?? [id number] ? : 1960 ?Acct:[id number] ? Age/Sex: 63 / F ?ADM Date: 07/13/24 ? Loc: HO.MAMMO ? Attending Dr: Best Name MD ? Ordering Physician: Name,Best MD ?Results: 1Negative ? Date of Service: 07/13/24 ?Follow Up: 1 Year From Orig ?? inal Mammogram ? Procedure(s): MM tomosynthesis screening BI ?? Accession Number(s): [id number] ? cc: Name,Best ROCA ? EXAMINATION: ?? [...] DD/ 1424 ? TD/TT: 07/13/24 1440 ? Bridal Gown Fitter: ? Procedure Note Felix, Image - 07/24/2024 P[facility] [address] [place] [address] Mammography Report Signed Patient: Adolfo HumphreysR#: [id number] : 1960Acct:[id number] Age/Sex: 63 / FADM Date: 07/13/24 Loc: HOMistyMAMMO Attending Dr: Best Marcelo MD Ordering Physician: Best Marcelo MDResults: 1Negative Date of Service: 07/13/24Follow Up: 1 Year From Orig inal Mammogram Procedure(s): MM tomosynthesis screening BI Accession Number(s): [id number] cc: Best Marcelo MD EXAMINATION: MM SCREENING [...] 07/24/24 0913 DD/ 1424 TD/TT: 07/13/24 1440 Bridal Gown Fitter: Best Marcelo MD [facility] BI PROCEDURES Final Result * HEPATITIS C AB W/REFL TO HCV [...] a test for HCV RNA (test code 85979) is suggested. ?? For additional information please refer to http://[employer]/faq/HPP33n3 (This link is being provided for informational/ educational purposes only.) ?? 07/14/2022 3:30 PM EST Michell Epperson CNM HISTORICAL/NON ORDERABLE LABS Final Result [employer] * THINPREP TIS PAP AND HPV mRNA E6/E7, CT/NG, TRICH (07/14/2022 3:03 PM EST) Chlamydia trachomatis RNA, TMA, Urogenital NOT DETECTED NOT DETECTED [employer]VERT[employer] Clinical Information: NIL NEG 2014 CONVERTED [employer] COMMENT SEE COMMENT TINA D [employer] Comment: The analytical performance characteristics of this assay, when used to test SurePath(TM) specimens have been determined by [employer]. The modifications have not been cleared or approved by the FDA. This assay has been validated pursuant to the CLIA regulations and is used for clinical purposes. ?? For additional information, please refer to https://[employer]Connect.[employer]Fi/faq/XAT008 (This link is being provided for information/ educational purposes only.) ?? COMMENT SEE COMMENT TINA Montgomery [employer] Comment: EXPLANATORY NOTE: ? The Pap is [...] been evaluated with computer assisted technology. CONVERTED [employer] Systems Test Technician: SEE COMMENT [employer] Comment: MSM, CT(ASCP) CT screening location: [address] ??[address] HPV nRNA E6/E7 Not Detected Not Detected CONVERTED LEGACY LABS Comment: Methodology: Bait Packer-Mediated Amplification This assay detects E6/E7 viral messenger RNA (mRNA) from 14 high-risk HPV types (16,18,31,33,35,39,45,51,52,56,58,59,66,68). ? Cervical sources are required for HPV testing. If a vaginal source from a patient who has had a total hysterectomy with removal of cervix was ?? submitted, please contact the testing laboratory for alternative testing options. ?? For additional information, please refer to http://[employer]/faq/ISO974x9 (This link if provided for information/ educational [...] of this assay have been determined by [employer]. The modifications have not been cleared or approved by the FDA. This assay has been validated pursuant to the CLIA regulations and is used for clinical purposes. ?? For additional information, please refer to http://[employer]/ faq/Trichomonastma (This link is being provided for information/ educational purposes only.) ?? 07/14/2022 3:03 PM EST Michell Epperson CNM LAB PATHOLOGY ORDERABLES Final Result CONVERTED LEGACY LABS from Last 3 Months or Most Recently Relevant to Health Maintenance Insurance [address] [place] [address] MEDICARE [facility] STANDARD Care Teams Precision Lens Grinder Apprentice Relationship Specialty Start Date End Date Name, MD Best [address] [place] [address] PCP - General Family Medicine 11/07/15
--- OUTSIDE RECORDS SUMMARY | 2024-11-13 15:04 | XMS_ITS | Encounter Summary ---
Author Organization [employer] Address [address] [facility] [address] [address] [place] [address] Care Team Providers Care Psychiatric Social Worker Name Role Phone Name, Best ROCA Primary Care Provider [phone] Encounter Details Date Type Department Care Team (Late st Contact Info) Description 03/27/2024 Telephone [facility] [address] [place], [place] [phone] Name, MD Best [address] [place], [place] [phone] Social History Tobacco Use Types Packs/Day Years [...] PM EDT FYI T/C to pt. Through [place] id - [id number] for below message, No answer. Not able [...] Description 01/21/2025 2:45 PM EDT Office Visit [facility] [address] [place] [phone] Name, MD Best [address] [place] [address] documented as of this encounter Visit Diagnoses Not on filedocumented in this encounter Additional Health Concerns Assessment Noted Time PHQ-9 Depression Total Score: 0 12/30/19 23 9:03 AM EDT documented as of this encounter Care Teams Psychiatric Social Worker Relationship Specialty Start Date End Date Name, MD Best [address] [place] [address] PCP - General Family Medicine 11/07/15 documented as of this encounter
--- OUTSIDE RECORDS SUMMARY | 2024-11-13 15:04 | XMS_ITS | Encounter Summary ---
Author Organization [email or web address] [facility] Address [address] [facility] 7t [place] [address] Care Team Providers Care Interior Design Professional Name Role Phone Best Marcelo MD Primary Care Provider Reason for Referral * Consultation (Routine) - Authorized Specialty Diagnoses / Procedures Referred By Contac t Referred To Contact Optometry Diagnoses Blurred vision, bilateral Best Marcelo MD [address] [place] [address] Phone: tel: fax: [facility] OPTOMETRY [address] [place] [phone] Phone: tel: fax: Referral ID Status Reason Start Date Expiration Date Visits Requested Visits Authorized [id number] Authorized Consult and Treat 11/06/2024 11/06/2025 1 1 Reason for Visit * Reason Comments Follow-up Encounter Details Date Type Department Care Team (Latest Contact Info) Description 11/06/2024 1:00 PM EST Office Visit [facility] MEDICINE [address] [place] [address] [phone] Best Marcelo MD [address] [place] [phone] Primary hypertension (Primary Dx); Primary osteoarthritis of right knee; On statin therapy; Blurred vision, bilateral Social History Tobacco Use Types Packs/Day Years [...] Mass Index 35.07 11/06/2024 1:06 PM EST documented in this encounter Progress Notes * Best Marcelo MD - 11/06/2024 1:00 PM EST Subjective Patient ID: Cathy Joyner is a 64 y.o. female who presents for Follow-up. Patient comes for a follow-up visit. She feels well. She has been getting Euflexxa right knee injections for treatment of osteoarthritis pain. The injections are helping. The pain has improved and she is walking more. BP is well-controlled today. She agrees to return for fasting blood work for CMP and lipids. She asked me to send refills of pain medication to use as needed for joint pains relatedto DJD. I suggested Celebrex and topical diclofenac. I suggested she try the topical diclofenac first and if that does not work enough she can use the Celebrex sparingly. Review of Systems Constitutional: Negative for chills and fever. HENT: Negative for sore throat. Respiratory: Negative for cough, shortness of breath and wheezing. Cardiovascular: Negative for chest pain, palpitations and leg swelling. Gastrointestinal: Negative for abdominal pain. Visit Vitals BP 116/79 (BP Location: Left arm, Patient Position: Sitting, BP Cuff Size: Adult) Pulse 85 Temp 97.8 ??F (36.6 ??C) (Temporal) Resp 14 Ht 5' 1 (1.549 m) Wt 185 lb 9.6 oz (84.2 kg) SpO2 95% BMI 35.07 kg/m?? Smoking Status Never BSA 1.9 m?? Objective Physical Exam Constitutional: Appearance: Normal appearance. Cardiovascular: Rate and Rhythm: Normal rate and regular rhythm. Heart sounds: No murmur heard. No gallop. Pulmonary: Effort: Pulmonary effort is normal. No respiratory distress. Breath sounds: Normal breath sounds. No wheezing. Musculoskeletal: Right lower leg: No edema. Left lower leg: No edema. Neurological: Mental Status: She is alert. Lab Results Component Value Date WBC 7.4 03/18/2024 HGB 11.5 (L) 03/18/2024 HCT 35.8 (L) 03/18/2024 MCV 84.4 03/18/2024 PLT 243 03/18/2024 Lab Results Component Value Date GLUCOSE 91 03/18/2024 NA 141 03/18/2024 K 3.8 03/18/2024 CO2 27 03/18/2024 CL 104 03/18/2024 BUN 15 03/18/2024 CREATININE 0.84 03/18/2024 Current Outpatient Medications on File Prior to Visit Medication Sig Dispense Refill acetaminophen (Tylenol) 500 MG tablet 2 tablets Q4-6h2 tablets Q4-6h 30 tablet 0 albuterol (2.5 MG/3ML) 0.083% nebulizer solution TAKE 3 ML (2.5 MG) VIA NEBULIZATION EVERY 6 HOURS NEEDED FOR WHEEZE 75 mL 0 albuterol (Ventolin HFA) 108 (90 Base) MCG/ACT inhaler Inhale 2 puffs every 6 (six) hours if neededfor shortness of breath or wheezing. 18 g 1 atorvastatin (Lipitor) 20 MG tablet TAKE 1 TABLET BY MOUTH EVERY DAY IN THE MORNING 90 tablet 1 cetirizine (ZyrTEC) 10 MG tablet TAKE 1 TABLET BY MOUTH EVERY DAY IN THE MORNING 90 tablet 1 cholecalciferol (Vitamin D-3) 25 MCG (1000 UT) tablet Take 1,000 Units by mouth in the morning. clobetasol (Temovate) 0.05 % ointment Apply topically 2 times daily. 30 g 0 cyclobenzaprine (Flexeril) 5 MG tablet 1 tab po at bedtime prn pain italian 20 tablet 0 fluticasone (Flonase) 50 MCG/ACT nasal spray SPRAY 1 SPRAY INTO EACH NOSTRIL ONCE A DAY 48 mL 0 fluticasone furoate (Arnuity Ellipta) 100 MCG/ACT inhaler Inhale 1 puff Once per day. Rinse mouth with water after use to reduce aftertaste and incidence of candidiasis. Do not swallow. 1 each 11 Lidocaine 5 % cream Apply topically bid 30 g 3 losartan-hydroCHLOROthiazide (Hyzaar) 50-12.5 MG tablet TAKE 1 TABLET BY MOUTH EVERY DAY 90 tablet 1 pantoprazole (ProtoNix) 40 MG EC tablet TAKE 1 TABLET BY MOUTH EVERY DAY 90 tablet 0 pyridoxine (Vitamin B-6) 100 MG tablet Take 100 mg by mouth in the morning. sodium chloride ([place] Nasal [place]) 0.65 % nasal spray 1-2 sprays on each nostril every 2-3 hours as needed for nasal congestion 44 mL 1 [DISCONTINUED] pantoprazole (ProtoNix) 40 MG EC tablet TAKE 1 TABLET BY MOUTH EVERY DAY 90 tablet 0 No current facility-administered medications on file prior to visit. Assessment/Plan Diagnoses and all orders for this visit: Primary hypertension Comments: Continue losartan/HCTZ. Recheck CMP. Orders: - Comprehensive Metabolic Panel; Future - Lipid Panel, Standard; Future Primary osteoarthritis of right knee Comments: Continue to follow with [facility]. I recommended topical diclofenac daily for pain. I recommend to use Celebrex currently for knee pain. On statin therapy Comments: Continue atorvastatin for primary prevention and check fasting blood work listed below. Orders: - Comprehensive Metabolic Panel; Future - Lipid Panel, Standard; Future Other orders - At the end of the visit she complained of blurred vision and requested referral to eye exam and Iagreed. celecoxib (CeleBREX) 200 MG capsule; Take 1 capsule (200 mg) by mouth 2 times daily for 20 days. - Diclofenac Sodium 1 % gel; Apply thin layer by topical route (quantity as directed on package insert) to affected area of pain 3 times daily as needed. documented in this encounter Plan of Treatment Upcoming Encounters Date Type Department Care Team (Late st Contact Info) Description 01/21/2025 2:45 PM EDT Office Visit [facility] [address] [place] [phone] Name, MD Best [address] [place] [phone] Scheduled Referrals Name Type Priority Associated Diagnoses Orde r Schedule Referral to [facility] Eye Care Outpatient Referral Routine Blurred vision, bilateral Expected: 11/06/2024 (Approximate), Expires: 11/06/2025 documented as of this encounter Procedures Procedure Name Priority Date/Time Associated Diagnosis Comments LIPID PANEL, STANDARD Routine 11/13/2024 12:31 PM EDT Primary hypertension On statin therapy COMPREHENSIVE METABOLIC PANEL Routine 11/13/2024 12:31 PM EDT Primary hypertension On statin therapy documented in this encounter Results * (ABNORMAL) Lipid Panel, Standard (11/13/2024 12:31 PM EDT) Triglycerides 158(H) <150 mg/dL [facility] Comment:Desirable Triglyceri de: less than 150 mg/dLBorderline High Triglyceride 150-199 mg/dLHigh Triglyceride: 200-499 mg/dLVery High Triglyceride: greater than or equal to 5OO mg/dL Cholesterol 158 <200 mg/dL [facility] Comment:Desirable Cholestero l: less than 200 mg/dLBorderline High Cholesterol: 200-239 mg/dLHigh Cholesterol: greater than 239 mg/dL LDL Cholesterol Calculated 75 <100 mg/dL [facility] Comment:Desirable LDL: less than 100 mg/dLNear Optimal/Above Optimal LDL: 110- 129 mg/dLBorderline High LDL: 130-159 mg/dLHigh LDL: 160-189 mg/dLVery High LDL: greater than or equal to 190 mg/dL HDL Cholesterol 52 >40 mg/dL [facility] Comment:Desirable HDL: great er than 40 mg/dL Note: This HDL assay may give artificially low results in patients with liver disease. Blood Venous blood specimen / Unknown 11/13/2024 12:31 PM EDT 11/13/2024 1:08 PM EDT us Best Name MD LAB BLOOD ORDERABLES Final Resul t [facility] [address] [place], [place] [phone] * (ABNORMAL) Comprehensive Metabolic Panel (11/13/2024 12:31 PM EDT) Sodium 141 135 - 145 mmol/L [facility] Potassium 4.5 3.3 - 5.1 mmol/L [facility] Chloride 106 96 - 108 mmol/L [facility] Carbon Dioxide 28 22 - 29 mmol/L [facility] Anion Gap 12 12 - 20 [facility] Urea Nitrogen (BUN) 22(H) 9 - 16 mg/dL [facility] Creatinine, Serum 0.81 0.5 - 1.4 mg/dL [facility] Estimated Glomerular Filt Rate >60 [facility] Comment:Chronic Kidney Disea se: Estimated GFR < 60 mL/min/1.91s6Lruigv Kidney Disease: Estimated GFR < 15 mL/min/1.73m2 Glucose 87 60 - 115 mg/dL [facility] Calcium 9.7 8.4 - 10.2 mg/dL [facility] Bilirubin, Total 0.6 0.0 - 1.0 mg/dL [facility] Aspartate Amino Transferase 17 5 - 31 U/L [facility] Alanine Aminotransferase 27 0 - 31 U/L [facility] Total Protein 7.3 6.5 - 8.0 g/dL [facility] Albumin Level 4.0 3.5 - 5.0 g/dL [facility] Alkaline Phosphatase 125(H) 39 - 117 U/L [facility] Blood Venous blood specimen / Unknown 11/13/2024 12:31 PM EDT 11/13/2024 1:08 PM EDT us Best Marcelo MD LAB BLOOD ORDERABLES Final Resul t [facility] [address] [place] [phone] documented in this encounter Visit Diagnoses Diagnosis Primary hypertension- Primary Unspecified essential hypertension Primary osteoarthritis of right knee On statin therapy Blurred vision, bilateral Other specified visual disturbances documented in this encounter Additional Health Concerns Assessment Noted Time PHQ-9 Depression Total Score: 6 06/22/20 24 1:53 PM EDT documented as of this encounter Care Teams Interior Design Professional Relationship Specialty Start Date End Date Name, MD Best [address] [place] [address] PCP - General Family Medicine 11/07/15 documented as of this encounter
--- OUTSIDE RECORDS SUMMARY | 2024-11-13 15:04 | XMS_ITS | Encounter Summary ---
Author Organization [employer] Address [address] [facility] 7t [place] [address] Care Team Providers Care Tobacco Curer Name Role Phone Name, Best ROCA Primary Care Provider [phone] Reason for Visit * Reason Onset Date Comments triage 10/19/2022 Encounter Details Date Type Department Care Team ([facility] st Contact Info) Description 10/19/2022 Telephone [facility] MEDICINE [address] [place], [place] [phone] Name, MD Best [address] [place] [address] triage Social History Tobacco Use Types Packs/Day [...] question The caller accepted this outcome speaks south korean documented in this encounter Plan of Treatment Upcoming Encounters Date Type Department Care Team (Late st Contact Info) Description 01/21/2025 2:45 PM EDT Office Visit [facility] MEDICINE [address] [place] [address] Name, MD Best [address] [place] [address] documented as of this encounter Visit Diagnoses Not on filedocumented in this encounter Care Teams Tobacco Curer Relationship Specialty Start Date End Date Name, MD Best [address] [place] [phone] PCP - General Family Medicine 11/07/15 documented as of this encounter
--- OUTSIDE RECORDS SUMMARY | 2024-11-13 15:04 | XMS_ITS | Encounter Summary ---
Author Organization [employer] [facility] Address [address] [facility] 7t [place] [address] Care Team Providers Care Supervisor [employer] Name Role Phone Name, Best ROCA Primary Care Provider [phone] Encounter Details Date Type Department Care Team (Late st Contact Info) Description 02/28/2023 Abstract [facility] ADULT DENTAL [address] [place], [place] [phone] Misty Fitzgerald [address] [place], [place] [phone] Social History Tobacco Use Types Packs/Day Years [...] Upcoming Encounters Date Type Department Care Team ([facility] Contact Info) Description 01/21/2025 2:45 PM EDT Office Visit [facility] MEDICINE [address] [place], [place] [phone] Name, MD Best [address] [place] [address] documented as of this encounter Visit Diagnoses Not on filedocumented in this encounter Additional Health Concerns Assessment Noted Time PHQ-9 Depression Total Score: 0 12/30/19 23 9:03 AM EDT documented as of this encounter Care Teams Supervisor [employer] Relationship Specialty Start Date End Date Name, MD Best [address] [place] [address] PCP - General Family Medicine 11/07/15 documented as of this encounter
--- OUTSIDE RECORDS SUMMARY | 2024-11-13 15:04 | XMS_ITS | Encounter Summary ---
Author Organization [employer] [facility] Address [address] [facility] [address] h [address] [place] [phone] Care Team Providers Care Salesperson Flowers Name Role Phone Name, Best ROCA Primary Care Provider [phone] Encounter Details Date Type Department Care Team (Late st Contact Info) Description 02/28/2023 Abstract [facility] ADULT DENTAL [address] [place], [place] [phone] Alex Yusuf DDS [address] [place], [place] [phone] Social History Tobacco Use Types Packs/Day Years [...] Description 01/21/2025 2:45 PM EDT Office Visit [facility] MEDICINE [address] [place], [place] [phone] Name, MD Best [address] [place], [place] [phone] documented as of this encounter Visit Diagnoses Not on filedocumented in this encounter Additional Health Concerns Assessment Noted Time PHQ-9 Depression Total Score: 0 12/30/19 23 9:03 AM EDT documented as of this encounter Care Teams Salesperson Flowers Relationship Specialty Start Date End Date Name, MD Best [address] [facility] [place] [address] PCP - General Family Medicine 11/07/15 documented as of this encounter
--- OUTSIDE RECORDS SUMMARY | 2024-11-13 15:04 | XMS_ITS | Encounter Summary ---
Author Organization [employer] [facility] Address [address] [facility] 7t [place] [address] Care Team Providers Care Singing Teacher Name Role Phone Name, Best ROCA Primary Care Provider [phone] Encounter Details Date Type Department Care Team (Latest Contact Info) Description 10/19/2018 Abstract [facility] CONVERSIONS Dental, Provider, DDS Social [...] Description 01/21/2025 2:45 PM EDT Office Visit [facility] MEDICINE [address] [place] [address] Name, MD Best [address] [place] [address] documented as of this encounter Visit Diagnoses Not on filedocumented in this encounter Care Teams Singing Teacher Relationship Specialty Start Date End Date Name, MD Bets [address] [place] [address] PCP - General Family Medicine 11/07/15 documented as of this encounter
== END 2024-11-13 12:30 | disposition home or self-care (01) ==
LOC: HO.HHCL 12:29
PROVIDERS: Visit Provider Internal Medicine Geriatric Medicine
DX: I10 Essential (primary) hypertension (principal); Z79.899 Other long term (current) drug therapy
CPT/HCPCS: 36415; 80053; 80061

== ENCOUNTER 2024-12-10 13:06 | Outpatient (AMB) | payer MEDICARE, MEDICAID, SELFPAY ==
--- NOTE | 2024-12-10 13:20 | A.OFFVIS_ITS ---
Intake Visit Reasons: 3m/US Intake Note: Patient presents today for a 3 month follow-up/US Urology medications: Vitamin B6 Blood thinners: none Outreach Rep Required: Yes Outreach Rep Language: Maxillofacial Prosthetics Dentist Name: GREGORIA Jernigan/REESE DANIELS Information Interpreted: non-clinical & clinical Accompanied by: Self / Same As Patient Allergies acetaminophen [From Excedrin Back and Body] Allergy (Verified 12/10/24 13:26) Unknown aspirin [From Excedrin Back and Body] Allergy (Verified 12/10/24 13:26) Unknown calcium carbonate [From Excedrin Back and Body] Allergy (Verified 12/10/24 13:26) Unknown Medication List - Last Reconciled 12/10/24 by Priscilla Mills MD acetaminophen (Tylenol Extra Strength) 500 mg PO Q6H PRN albuterol sulfate 90 mcg/actuation (Ventolin HFA) 2 puffs inhalation Q6H PRN atorvastatin 20 mg PO DAILY cholecalciferol (vitamin D3) 25 mcg PO DAILY fluticasone propionate 50 mcg/actuation 1 spray intranasal DAILY losartan-hydrochlorothiazide 50-12.5 mg 1 tab PO DAILY pantoprazole 40 mg PO DAILY pyridoxine (vitamin B6) 100 mg PO DAILY sodium chloride 0.65% (Saline Nasal) 1 - 2 sprays intranasal Q2-3H PRN HPI Comments Details: 12/10/24--Cathy is a 63-year-old female patient here for followup for history of kidney stones. Pt states she is drinking alot of water at home and watching the sodium in the diet. She add lemon to the water. Urinalysis negative for bladder leukocytes. Patient has no lower urinary tract complaints. Low salt diet. Low oxalate diet. Vitamin B6 100 mg daily. Results: Ultrasound renal no recurrent kidney stones-kidneys within normal limits. Plan continue to monitor renal ultrasound in 11 months telehealth follow-up 11/11/23---Telehealth FU for h/o kidney stones. Renal US reviewed--10/26/23--WNL -no stones visual Advised to consume adequate amount of water. Low salt diet. Low oxalate diet. Vitamin B6 100 mg daily 10/12/23--Cathy is a 63-year-old female patient here for followup for history of kidney stones. Pt states she is drinking alot of water at home and watching the sodium in the diet. She has had some left flank pain and is concerned about another kidney stone. She denies gross hematuria. She denies fever. Plan discussed --Advised to consume adequate amount of water. Low salt diet. Low oxalate diet. Monitor kidneys with Renal ultrasound. Vitamin B6 100 mg daily 12/10/2022--Telehealth visit Renal US results reviewed?11/29/22-- Kidneys: WNL, no renal calculi visualized. [facility] Medical History History of renal calculi Left flank discomfort COVID-19 High cholesterol High blood pressure Asthma HTN (hypertension) Surgical History History of back surgery History of esophagogastroduodenoscopy (EGD) H/O colonoscopy Family History Father No problems noted. Mother No problems noted. Social History Alcohol intake: never Patient Tobacco Use Status: Never used Tobacco Current occupational status: retired Current occupation: right hand dominant Review of Systems Const All systems reviewed & are unremarkable except as noted in HPI and below Reports no additional complaints Eyes Reports no additional complaints ENT Reports no additional complaints Card Reports no additional complaints Resp Reports no additional complaints GI Reports no additional complaints Reports as per HPI Musc Reports no additional complaints Skin/Breast Reports system reviewed and no additional complaints, except as documented Neuro Reports no additional complaints Psych Reports no additional complaints Endo Reports no additional complaints Ben/Lymph Reports no additional complaints Aller/Immun Reports no additional complaints Results Reviewed Results Reviewed: Date of Service: 10/24/24 CLINICAL HISTORY: N20.0 - Calculus of kidney US Renal Comparison: None Findings: Right kidney normal size and echotexture, 11 cm length. Left kidney normal size and echotexture, 9.9cm length. Query duplicated right renal collecting system. Otherwise unremarkable kidneys without evidence of stone or hydronephrosis. IMPRESSION: 1. Normal kidneys. Date of Service: 10/26/23 EXAMINATION: US RETROPERITONEAL LIMITED (RENAL ONLY) CLINICAL INFORMATION: Personal history of urinary calculi. COMPARISON: Renal ultrasound 11/29/2022 and 07/06/2022. X-ray abdomen KUB 09/19/2019 and 09/07/2017. CT abdomen and pelvis 08/23/2016. MR abdomen without and with contrast 07/02/2016. TECHNIQUE: Real-time imaging of the kidneys. FINDINGS: RIGHT KIDNEY: 12.1 x 5.5 x 4.4 cm (SAG x AP x TRV). The kidney is normal in size, contour, and echogenicity. Renal cortical thickness is normal. No calculi or focal parenchymal lesions. There is mild pelviectasis, without nhi hydronephrosis. LEFT KIDNEY: 10.7 x 3.4 x 4.4 cm (SAG x AP x TRV). The kidney is normal in size, contour, and echogenicity. Renal cortical thickness is normal. No calculi or focal parenchymal lesions. There is mild pelviectasis, without nhi hydronephrosis. IMPRESSION: Unremarkable examination. No renal calculus or nhi hydronephrosis is noted bilaterally. Assessment & Plan Assessment & Plan (1) History of renal calculi: Code(s): Z87.442 - Personal history of urinary calculi Category: Medical (2) Nephrolithiasis: Code(s): N20.0 - Calculus of kidney Category: Medical Plan renal US. Low salt diet. Low oxalate diet. Vitamin B6 100 mg daily Orders: Orders US renal BI 11 Months Z87.442 - Personal history of urinary calculi Medications: Refilled pyridoxine (vitamin B6) 100 mg PO DAILY 90 tabs 3RF Patient Instructions: The patient had an opportunity to ask questions regarding treatment plan. The patient expressed understanding and agreement with the above treatment plan. The patient is aware they should contact our office by phone for worsening of their current condition or the appearance of new symptoms. Compliance is encouraged with any medications and followup testing that is ordered. It is a privilege to be allowed the opportunity to participate in the urologic care of your patient. If you have any questions or concerns regarding treatment for the above conditions please do not hesitate to contact me. The office telephone contact is [phone]. This note is constructed in part using voice recognition software. While every effort has been made to ensure accuracy astronautical engineer errors may have been included. Yours sincerely, Priscilla Mills MD Coding Level of Care Code Est Pt Level 3 (15879) Diagnoses History of renal calculi Z87.442 Nephrolithiasis N20.0
--- OUTSIDE RECORDS SUMMARY | 2024-12-10 15:32 | XMS_ITS | Encounter Summary ---
Author Organization [employer] Address [address] [facility] 7t [place] [address] Care Team Providers Care Lock Plater Name Role Phone Name, Best ROCA Primary Care Provider [phone] Reason for Visit * Reason Onset Date Comments triage 10/19/2022 Encounter Details Date Type Department Care Team ([facility] st Contact Info) Description 10/19/2022 Telephone [facility] MEDICINE [address] [place], [place] [phone] Name, MD Best [address] [place] [address] triage Social History Tobacco Use Types Packs/Day [...] question The caller accepted this outcome speaks dominican documented in this encounter Plan of Treatment Upcoming Encounters Date Type Department Care Team (Late st Contact Info) Description 01/21/2025 2:45 PM EDT Office Visit [facility] MEDICINE [address] [place] [address] Name, MD Best [address] [place] [address] documented as of this encounter Visit Diagnoses Not on filedocumented in this encounter Care Teams Lock Plater Relationship Specialty Start Date End Date Name, MD Best [address] [place] [phone] PCP - General Family Medicine 11/07/15 documented as of this encounter
--- OUTSIDE RECORDS SUMMARY | 2024-12-10 15:32 | XMS_ITS | Encounter Summary ---
Author Organization [employer] [facility] Address [address] [facility] [address]t [place] [address] Care Team Providers Care Funeral Home Assistant Name Role Phone Name, Best ROCA Primary Care Provider [phone] Encounter Details Date Type Department Care Team (Latest Contact Info) Description 10/19/2018 Abstract [facility] CONVERSIONS Dental, Provider, DDS Social History [...] Description 01/21/2025 2:45 PM EDT Office Visit [facility] MEDICINE [address] [place] [address] Name, MD Best [address] [place] [address] documented as of this encounter Visit Diagnoses Not on filedocumented in this encounter Care Teams Funeral Home Assistant Relationship Specialty Start Date End Date Name, MD Best [address] [place] [address] PCP - General Family Medicine 11/07/15 documented as of this encounter
--- OUTSIDE RECORDS SUMMARY | 2024-12-10 15:32 | XMS_ITS | Encounter Summary ---
Author Organization [employer] [facility] Address [address] 7t [place] [address] Care Team Providers Care It Systems Engineer Name Role Phone Name, Best ROCA Primary Care Provider [phone] Encounter Details Date Type Department Care Team (Latest Contact Info) Description 01/04/2022 Abstract [facility] CONVERSIONS Dental, Provider, DDS Social History [...] Office Visit [facility] MEDICINE [address] [place] [address] Name, MD Best 230 [place] [address] documented as of this encounter Visit Diagnoses Not on filedocumented in this encounter Care Teams It Systems Engineer Relationship Specialty Start Date End Date Name, MD Best 230 [place] [address] PCP - General Family Medicine 11/07/15 documented as of this encounter
--- OUTSIDE RECORDS SUMMARY | 2024-12-10 15:32 | XMS_ITS | Encounter Summary ---
Author Organization [employer] [facility] Address [address] [facility] 7t h Floor [place] [phone] Care Team Providers Care Youth Services Librarian Name Role Phone Name, Best ROCA Primary Care Provider [phone] Encounter Details Date Type Department Care Team (Late st Contact Info) Description 02/28/2023 Abstract [facility]ULT [facility] [address] [place], [place] [phone] Alex Yusuf DDS [address] [place], [place] [phone] Social History Tobacco Use Types Packs/Day Years [...] EDT Office Visit [facility] MEDICINE [address] [place], [place] [phone] Name, MD Best 230 [place], [place] [phone] documented as of this encounter Visit Diagnoses Not on filedocumented in this encounter Additional Health Concerns Assessment Noted Time PHQ-9 Depression Total Score: 0 12/30/19 23 9:03 AM EDT documented as of this encounter Care Teams Youth Services Librarian Relationship Specialty Start Date End Date Name, MD Best 230 [facility] [place] [address] PCP - General Family Medicine 11/07/15 documented as of this encounter
--- OUTSIDE RECORDS SUMMARY | 2024-12-10 15:32 | XMS_ITS | Encounter Summary ---
Author Organization [facility] [employer] [facility] Address [address] [facility] 7t [place] [address] Care Team Providers Care Health Social Work Professor Name Role Phone Name, Best ORCA Primary Care Provider [phone] Encounter Details Date Type Department Care Team (Latest Contact Info) Description 01/01/2021 Abstract [facility] CONVERSIONS Dental, Provider, DDS Social History [...] 2:45 PM EDT Office Visit [facility] MEDICINE 230 [place] [address] Name, MD Best [address] [place] [address] documented as of this encounter Visit Diagnoses Not on filedocumented in this encounter Care Teams Health Social Work Professor Relationship Specialty Start Date End Date Name, MD Best [address] [place] [address] PCP - General Family Medicine 11/07/15 documented as of this encounter
--- OUTSIDE RECORDS SUMMARY | 2024-12-10 15:32 | XMS_ITS | Encounter Summary ---
Author Organization [employer] [facility] Address [address] [facility] 7t [place] [address] Care Team Providers Care Lumber Scaler Name Role Phone Name, Best ROCA Primary Care Provider [phone] Encounter Details Date Type Department Care Team (Late st Contact Info) Description 02/28/2023 Abstract [facility] ADULT DENTAL [address] [place], [place] [phone] Misty Fitzgerald [address] [place], [place] [phone] Social History Tobacco Use Types Packs/Day Years [...] Upcoming Encounters Date Type Department Care Team ([facility] Contact Info) Description 01/21/2025 2:45 PM EDT Office Visit [facility] MEDICINE [address] [place], [place] [phone] Name, MD Best [address] [place] [address] documented as of this encounter Visit Diagnoses Not on filedocumented in this encounter Additional Health Concerns Assessment Noted Time PHQ-9 Depression Total Score: 0 12/30/19 23 9:03 AM EDT documented as of this encounter Care Teams Lumber Scaler Relationship Specialty Start Date End Date Name, MD Best [address] [place] [address] PCP - General Family Medicine 11/07/15 documented as of this encounter
--- OUTSIDE RECORDS SUMMARY | 2024-12-10 15:33 | XMS_ITS | Encounter Summary ---
Author Organization [employer] Address [address] 7t [place] [address] Care Team Providers Care Miller Supervisor Name Role Phone Name, Best ROCA Primary Care Provider [phone] Reason for Visit * Reason Comments Med Refill Encounter Details Date Type Department Care Team ([facility] st Contact Info) Description 08/20/2023 Refill [facility] 230 [place], [place] [phone] Jason Lopes FNP Viral URI Social History [...] Description 01/21/2025 2:45 PM EDT Office Visit [facility] MEDICINE [address] [place] [address] NameBest MD 230 [place] [address] documented as of this encounter Visit Diagnoses Diagnosis Viral URI Acute upper respiratory infections of unspecified site documented in this encounter Additional Health Concerns Assessment Noted Time PHQ-9 Depression Total Score: 0 12/30/19 23 9:03 AM EDT documented as of this encounter Care Teams Miller Supervisor Relationship Specialty Start Date End Date NameBest MD [address] [place] [address] PCP - General Family Medicine 11/07/15 documented as of this encounter
--- OUTSIDE RECORDS SUMMARY | 2024-12-10 15:33 | XMS_ITS | Clinical Summary ---
Author Organization [employer] Address [address] [facility] 7t [place] [address] Care Team Providers Care Senior Cognos Developer Name Role Phone Name, Best ROCA Primary Care Provider [phone] Allergies Active Allergy Reactions Criticality Noted Date [...] 18 g 1 024 Active sodium chloride (Coffee Nasal [place]) 0.65 % nasal sprayIndications: Mild intermittent asthma [...] THE MORNING 90 tablet 1 024 Active albuterol (2.5 MG/3ML) 0.083% nebulizer solutionIndicatio ns:Mild intermittent asthma with exacerbation TAKE 3 ML (2.5 MG) VIA NEBULIZATION EVERY 6 HOURS NEEDED FOR WHEEZE 75 mL 024 Active acetaminophen (Tylenol) 500 MG tablet 2 tablets Q4-6h2 tablets Q4-6h 30 tablet 024 Active losartan-hydroCHL OROthiazide (Hyzaar) 50-12.5 MG tablet TAKE 1 TABLET BY MOUTH EVERY DAY 90 tablet 1 024 Active atorvastatin (Lipitor) 20 MG tabletIndications :Hyperlipidemia, unspecified hyperlipidemia type TAKE 1 TABLET BY MOUTH EVERY DAY IN THE MORNING 90 tablet 1 025 Active Lidocaine 5 % creamIndications: Acute pain of right shoulder Apply topically bid 30 g 3 025 Active pantoprazole (ProtoNix) 40 MG EC tabletIndications :Heartburn TAKE 1 TABLET BY MOUTH EVERY DAY 90 tablet 025 Active Diclofenac Sodium 1 % gel Apply thin layer by topical route (quantity as directed on package insert) to affected area of pain 3 times daily as needed. 50 g 3 025 Active fluticasone (Flonase) 50 MCG/ACT nasal sprayIndications: Mild intermittent asthma with exacerbation USE 1 SPRAY IN EACH NOSTRIL ONCE A DAY 48 mL 025 Active fluticasone (Flonase) 50 MCG/ACT nasal sprayIndications: Mild intermittent asthma with exacerbation SPRAY 1 SPRAY INTO EACH NOSTRIL ONCE A DAY 48 mL 024 2024 Discontinued celecoxib (CeleBREX) 200 MG capsule Take 1 capsule (200 mg) by mouth 2 times daily for 20 days. 40 capsule 3 025 2024 Active Problems Problem Noted Date [...] Type Department Care Team Description 11/12/2024 Refill [facility] MED[facility]INE 230 [place] [address] NameBest MD Mild intermittent asthma with exacerbation 11/06/2024 1:00 PM EST Office Visit [facility] [address] [place] [address] NameBest MD Primary hypertension (Primary Dx); Primary osteoarthritis of right knee; On statin therapy; Blurred vision, bilateral 11/03/2024 Refill [facility] [address] [place] [address] Monica Russ MD Heartburn 10/25/2024 Telephone [facility] [address] [place] [address] Rochelle Gaona MA Apirl Recalls 10/24/2024 Orders Only [facility] External Provider, [facility] 10/09/2024 8:40 AM EST [facility] [address] [place] [address] Rosa Starkey MD Acute pain of right shoulder (Primary Dx); Radiculopathy, unspecified spinal region 09/24/2024 Refill [facility] [address] [place] [address] Name, MD Best Hyperlipidemia, unspecified hyperlipidemia type 09/12/2024 6:20 PM EST [facility] [address] [place] [address] Laura Don NP Cough in adult patient 09/12/2024 Travel from Last 3 Months Immunizations Name [...] Description 01/21/2025 2:45 PM EDT Office Visit [facility] [address] [place] [address] Name, MD Best [address] [place] [address] Health Maintenance Due Date Last Done Comments [...] 06/22/2025 06/22/2024, 06/22/20 24 Mammogram 07/13/2025 07/13/2024, 1011/2022, 06/07/2023, Additional history exists Pap Smear 07/14/2025 07/14/2022 Tobacco Screening 11/06/2025 11/06/2024 DTaP/Tdap/Td Vaccines (2 - Td or Tdap) 09/10/2026 09/10/2016 Cervical Cancer Screening 07/14/2027 HPV/Cotest 07/14/2027 07/14/2022 Lipid Panel 11/13/2029 11/13/2024, 12/15/2023 Hepatitis B Vaccines Completed 03/06/2013, [...] 6:15 PM EST Cough in adult patient BI MAMMOGRAM SCREENING TOMOSYNTHESIS BILATERAL Routine 07/13/2024 2:24 PM EST BITEWINGS - 4 RADIOGRAPHIC IMAGES Routine 02/24/2023 9:00 AM EDT MIAN HISTORICAL HEPATITIS C AB W/REFL TO HCV [...] 12:31 PM EDT) Triglycerides 158(H) <150 mg/dL [facility] Comment:Desirable Triglyceri de: less than 150 mg/dLBorderline High Triglyceride 150-199 mg/dLHigh Triglyceride: 200-499 mg/dLVery High Triglyceride: greater than or equal to 5OO mg/dL Cholesterol 158 <200 mg/dL [facility] Comment:Desirable Cholestero l: less than 200 mg/dLBorderline High Cholesterol: 200-239 mg/dLHigh Cholesterol: greater than 239 mg/dL LDL Cholesterol Calculated 75 <100 mg/dL [facility] Comment:Desirable LDL: less than 100 mg/dLNear Optimal/Above Optimal LDL: 110- 129 mg/dLBorderline High LDL: 130-159 mg/dLHigh LDL: 160-189 mg/dLVery High LDL: greater than or equal to 190 mg/dL HDL Cholesterol 52 >40 mg/dL [facility] Comment:Desirable HDL: great er than 40 mg/dL Note: This HDL assay may give artificially low results in patients with liver disease. Blood Venous blood specimen / Unknown 11/13/2024 12:31 PM EDT 11/13/2024 1:08 PM EDT us Best Name MD LAB BLOOD ORDERABLES Final Resul t [facility] [address] [place] [address] [phone] * (ABNORMAL) Comprehensive Metabolic Panel (11/13/2024 12:31 PM EDT) Sodium 141 135 - 145 mmol/L [facility] Potassium 4.5 3.3 - 5.1 mmol/L [facility] Chloride 106 96 - 108 mmol/L [facility] Carbon Dioxide 28 22 - 29 mmol/L [facility] Anion Gap 12 12 - 20 [facility] Urea Nitrogen (BUN) 22(H) 9 - 16 mg/dL [facility] Creatinine, Serum 0.81 0.5 - 1.4 mg/dL [facility] Estimated Glomerular Filt Rate >60 [facility] Comment:Chronic Kidney Disea se: Estimated GFR < 60 mL/min/1.19k5Dusqwd Kidney Disease: Estimated GFR < 15 mL/min/1.73m2 Glucose 87 60 - 115 mg/dL [facility] Calcium 9.7 8.4 - 10.2 mg/dL [facility] Bilirubin, Total 0.6 0.0 - 1.0 mg/dL [facility] Aspartate Amino Transferase 17 5 - 31 U/L [facility] Alanine Aminotransferase 27 0 - 31 U/L [facility] Total Protein 7.3 6.5 - 8.0 g/dL [facility] Albumin Level 4.0 3.5 - 5.0 g/dL [facility] Alkaline Phosphatase 125(H) 39 - 117 U/L [facility] Blood Venous blood specimen / Unknown 11/13/2024 12:31 PM EDT 11/13/2024 1:08 PM EDT us Best Name MD LAB BLOOD ORDERABLES Final Resul t [facility] [address] [place] [address] [phone] * US RENAL BI (10/25/2024 12:01 PM EST) Anatomical Region Laterality Modality Abdomen Ultrasound 10/25/2024 12:0 1 PM EST Narrative 10/25/2024 12:02 PM EST ? [facility] ?[address] ?[place] [address] ? Ultrasound Report ? Signed ? Patient: Cathy Humphreys ?MR#: ?? [id number] ? : 1960 ?Acct:[id number] ? Age/Sex: 64 / F ?ADM Date: 10/24/24 ? Loc: HO.US ? Attending Dr: Priscilla Mills MD ? Ordering Physician: Priscilla Mills MD ?? Date of Service: 10/24/24 ?? Procedure(s): US renal BI ?? Accession Number(s): [id number] ? cc: Priscilla Mills MD; Name,Best ROCA [...] by Evelia Smith MD in OV> ? 10/25/241200 ? DD/ 00 ? TD/TT: 10/25/241200 ? Credit Control Clerk: ? Procedure Note Donmonica, Leandra - 10/25/2024 [place] [address] Ultrasound Report Signed Patient: Adolfo HumphreysR#: [id number] : 1960Acct:[id number] Age/Sex: 64 / FADM Date: 10/24/24 Loc: HO.US Attending Dr: Priscilla Mills MD Ordering Physician: Priscilla Mills MD Date of Service: 10/24/24 Procedure(s): US renal BI Accession Number(s): [id number] cc: Priscilla Mills MD; Name,Best ROCA CLINICAL [...] 10/25/24 1201 DD/ 1201 TD/TT: 10/25/24 1201 Credit Control Clerk: us [facility] External Provider IMG US PROCEDURES Final Result * XR Shoulder 2+ Views Right (10/09/2024 9:10 AM EST) Anatomical Region Laterality Modality Upper Extremities, Shoulder Right Radi ographic Imaging 10/09/2024 9:10 AM EST Narrative 10/09/2024 9:50 AM EST ? [facility] ?[address] ?[place] [address] ?XRay Report ? Signed ? Patient: Fuller Melguizo,Cathy ?MR#: ?? [id number] ? : 1960 ?Acct:[id number] ? Age/Sex: 64 / F ?ADM Date: 10/05/24 ? Loc: HO.SSS ? Attending Dr: Tiffani Portillo MD ? Ordering Physician: Rosa Starkey MD ?? Date of Service: 10/09/24 ?? Procedure(s): XR shoulder RT min 2V ?? Accession Number(s): [id number] ? cc: Rosa Starkey MD; Name,Best ROCA [...] ? DD/ 0910 ? TD/TT: 10/09/2430 ? Credit Control Clerk: ? Procedure Note Felix, Leandra - 10/09/[address] [address] XRay Report Signed Patient: Adolfo HumphreysR#: [id number] : 1960Acct:[id number] Age/Sex: 64 / FADM Date: 10/05/24 Loc: HO.SSS Attending Dr: Tiffani Portillo MD Ordering Physician: Rosa Starkey MD Date of Service: 10/09/24 Procedure(s): XR shoulder RT min 2V Accession Number(s): [id number] cc: Rosa Starkey MD; Best Marcelo MD EXAMINATION: XR SHOULDER 2 OR MORE VIEWS [...] Alejo Bravo MD in OV> 10/09/2447 DD/ 9 TD/TT: 10/09/24929 Credit Control Clerk: Rosa Starkey MD IMG XR PROCEDURES Edited R esult - Final * Influenza B (ID NOW Rapid Molecular) (09/12/2024 6:22 PM EST) Influenza B Negative Negative, Indeterminate [facility] Swab 09/12/2024 6:22 PM EST [facility] MANUFACTURING INSPECTOR POINT OF CARE TEST ENTER/EDIT O RDERABLES Final Result Performing Organization Address [facility] de Phone Number [facility] [address] [place] [phone] * Influenza A (ID NOW Rapid Molecular) (09/12/2024 6:21 PM EST) Influenza A Negative Negative, Indeterminate [facility] Swab 09/12/2024 6:21 PM EST [facility] MANUFACTURING INSPECTOR POINT OF CARE TEST ENTER/EDIT O RDERABLES Final Result Performing Organization Address [facility] Co de Phone Number [facility] [address] [place] [phone] * POCT rapid strep A manually resulted (09/12/2024 6:15 PM EST) [facility] Rapid Strep A Screen Negative Negative, None Detected Swab 09/12/2024 6:15 PM EST us Laura Don MANUFACTURING INSPECTOR POINT OF CARE TEST ENTER/EDIT O RDERABLES Final Result * POCT Rapid COVID Ag (09/12/2024 6:15 PM EST) [facility] Rapid COVID Ag Negative Swab 09/12/2024 6:15 PM EST us Laura Don MANUFACTURING INSPECTOR POINT OF CARE TEST ENTER/EDIT O RDERABLES Final Result * BI Mammogram Screening Tomosynthesis Bilateral (07/13/2024 2:24 PM EST) Anatomical Region Laterality Modality Breast Bilateral Mammography 07/13/2024 2:24 PM EST Narrative 07/24/2024 9:16 AM EST ? [facility] ? [address] ?[place] [address] ? Mammography Report ? Signed ? Patient: Jonny Melguabao,Cathy ?MR#: ?? [id number] ? : 1960 ?Acct:[id number] ? Age/Sex: 63 / F ?ADM Date: 11/ ? Loc: HO.MAMMO ? Attending : Best Name MD ? Ordering Physician: Name,Best MD ?Results: 1Negative ? Date of Service: 11/08/24 ?Follow Up: 1 Year From Orig ?? inal Mammogram ? Procedure(s): MM tomosynthesis screening BI ?? Accession Number(s): [id number] ? cc: Name,Best ROCA ? EXAMINATION: ?? [...] DD/ 1424 ? TD/TT: 07/13/24 1440 ? Credit Control Clerk: ? Procedure Note Felix, Image - 07/24/2024 [place] [facility] [address] [place], [place] [address] Mammography Report Signed Patient: Gwen Humphreys#: [id number] : 1960Acct:[id number] Age/Sex: 63 / FADM Date: 07/13/24 Loc: HO.MAMMO Attending Dr: Best Marcelo MD Ordering Physician: Best Marceloesults: 1Negative Date of Service: 07/13/24Follow Up: 1 Year From Orig inal Mammogram Procedure(s): MM tomosynthesis screening BI Accession Number(s): [id number] cc: Best Marcelo MD EXAMINATION: MM SCREENING [...] 07/24/24 0913 DD/ 1424 TD/TT: 07/13/24 1440 Credit Control Clerk: Best Marcelo MD IM BI PROCEDURES Final Result * HEPATITIS C [...] a test for HCV RNA (test code 99158) is suggested. ?? For additional information please refer to http://Lifecrow[employer].Klout/faq/VEI85k9 (This link is being provided for informational/ educational purposes only.) ?? 07/14/2022 3:30 PM EST us Michell Epperson CNM HISTORICAL/NON ORDERABLE LABS Final Result CONVERTED [employer] * THINPREP TIS PAP AND HPV mRNA E6/E7, CT/NG, TRICH (07/14/2022 3:03 PM EST) Chlamydia trachomatis RNA, TMA, Urogenital NOT DETECTED NOT DETECTED CONVERTED [facility] Clinical Information: NIL NEG 2014 CONVERTED [facility] COMMENT SEE COMMENT TINA D [employer] Comment: The analytical performance characteristics of this assay, when used to test SurePath(TM) specimens have been determined by [employer]. The modifications have not been cleared or approved by the FDA. This assay has been validated pursuant to the CLIA regulations and is used for clinical purposes. ?? For additional information, please refer to https://Lifecrowd.Klout/faq/WMU773 (This link is being provided for information/ educational purposes only.) ?? COMMENT SEE COMMENT TINA Montgomery [employer] Comment: EXPLANATORY NOTE: ? The Pap is [...] been evaluated with computer assisted technology. CONVERTED [employer] On Awake Counselor: SEE COMMENT [employer] Comment: MSM, CT(ASCP) CT screening location: [address] ??[address] HPV nRNA E6/E7 Not Detected Not Detected CONVERTED [facility] Comment: Methodology: Scouring Train Operator-Mediated Amplification This assay detects E6/E7 viral messenger RNA (mRNA) from 14 high-risk HPV types (16,18,31,33,35,39,45,51,52,56,58,59,66,68). ? Cervical sources are required for HPV testing. If a vaginal source from a patient who has had a total hysterectomy with removal of cervix was ?? submitted, please contact the testing laboratory for alternative testing options. ?? For additional information, please refer to http://Lifecrowd.Klout/faq/EJF443b5 (This link if provided for information/ educational [...] of this assay have been determined by [employer]. The modifications have not been cleared or approved by the FDA. This assay has been validated pursuant to the CLIA regulations and is used for clinical purposes. ?? For additional information, please refer to http://[employer]ec[employer].Klout/ faq/Trichomonastma (This link is being provided for information/ educational purposes only.) ?? 07/14/2022 3:03 PM EST Michell Epperson CNM LAB PATHOLOGY ORDERABLES Final Result [facility]VERTED [facility] from Last 3 Months or Most Recently Relevant to Health Maintenance Insurance [facility] Care Teams Senior Cognos Developer Relationship Specialty Start Date End Date Name, MD Best [address] [place] [phone] PCP - General Family Medicine 11/07/15
--- OUTSIDE RECORDS SUMMARY | 2024-12-10 15:33 | XMS_ITS | Encounter Summary ---
Author Organization [employer] Address [address] [facility] [address] 7t [place] [address] Care Team Providers Care Belt Brander Name Role Phone Name, Best ROCA Primary Care Provider [phone] Encounter Details Date Type Department Care Team (Late st Contact Info) Description 03/27/2024 Telephone [facility] [address] [place], [place] [phone] Name, MD Best [address] [place], [place] [phone] Social History Tobacco Use Types Packs/Day Years [...] PM EDT FYI T/C to pt. Through [employer] [place] id - [id number] for below message, No answer. Not able [...] Description 01/21/2025 2:45 PM EDT Office Visit [facility] [address] [place] [address] Name, MD Best [address] [place] [address] documented as of this encounter Visit Diagnoses Not on filedocumented in this encounter Additional Health Concerns Assessment Noted Time PHQ-9 Depression Total Score: 0 12/30/19 23 9:03 AM EDT documented as of this encounter Care Teams Belt Brander Relationship Specialty Start Date End Date Name, MD Best [address] [place] [phone] PCP - General Family Medicine 11/07/15 documented as of this encounter
--- OUTSIDE RECORDS SUMMARY | 2024-12-10 15:33 | XMS_ITS | Encounter Summary ---
Author Organization [employer] Address [address] [facility] 7t [place] [address] Care Team Providers Care Professor Of Art Name Role Phone Name, Best ROCA Primary Care Provider [phone] Reason for Visit * Reason Onset Date Comments Medication Question 07/26/2023 Encounter Details Date Type Department Care Team ([facility] st Contact Info) Description 07/26/2023 Telephone [facility] 230 [place], [place] [phone] Mikael Olivares MD 230 [place], [place] [phone] Medication Question Social History Tobacco Use Types [...] by her PCP Please contact pt at [phone] Palestinian Speaker documented in this encounter Plan of Treatment Upcoming Encounters Date Type Department Care Team (Late st Contact Info) Description 01/21/2025 2:45 PM EDT Office Visit [facility] [address] [place] [phone] Name, MD Best [address] [place] [address] documented as of this encounter Visit Diagnoses Not on filedocumented in this encounter Additional Health Concerns Assessment Noted Time PHQ-9 Depression Total Score: 0 12/30/19 23 9:03 AM EDT documented as of this encounter Care Teams Professor Of Art Relationship Specialty Start Date End Date Name, MD Best [address] [place] [phone] PCP - General Family Medicine 11/07/15 documented as of this encounter
--- OUTSIDE RECORDS SUMMARY | 2024-12-10 15:33 | XMS_ITS | Encounter Summary ---
Author Organization [email or web address] Address [address] [facility] [address] [place] [address] Care Team Providers Care Architecture Instructor Name Role Phone Name, Best ROCA Primary Care Provider [phone] Reason for Visit * Reason Onset Date Comments Appointment Request 06/12/2024 Encounter Details Date Type Department Care Team ([facility] st Contact Info) Description 06/12/2024 Telephone [facility] [address] [place], [place] [id number] Name, MD Best [address] [place], [place] [phone] Appointment Request Social History Tobacco Use Types [...] to r/s today's follow up. No availability. Laser Printing Operator advised will send a message. Contact pt at [phone] documented in this encounter Plan of Treatment Upcoming Encounters Date Type Department Care Team (Late st Contact Info) Description 01/21/2025 2:45 PM EDT Office Visit [facility] [address] [place] [address] Name, MD Best [address] [place] [address] documented as of this encounter Visit Diagnoses Not on filedocumented in this encounter Additional Health Concerns Assessment Noted Time PHQ-9 Depression Total Score: 0 12/30/19 23 9:03 AM EDT documented as of this encounter Care Teams Architecture Instructor Relationship Specialty Start Date End Date Name, MD Best [address] [place] [address] PCP - General Family Medicine 11/07/15 documented as of this encounter
== END 2024-12-10 13:43 | disposition home or self-care (01) ==
LOC: HO.HUSH 13:07
PROVIDERS: PCP Internal Medicine Geriatric Medicine; Visit Provider Urology
DX: Z87.442 Personal history of urinary calculi (principal); N20.0 Calculus of kidney; Z13.9 Encounter for screening, unspecified
CPT/HCPCS: 99213

== ENCOUNTER → 2024-12-10 13:06 | Outpatient (BNVA) | payer MEDICARE, SELFPAY | PROVIDERS: PCP Internal Medicine Geriatric Medicine; Visit Provider Urology | DX: N20.0 Calculus of kidney (principal); Z87.442 Personal history of urinary calculi | CPT/HCPCS: 81003; 99212 ==

== ENCOUNTER 2025-02-04 13:52 | Outpatient (AMB) | payer MEDICARE, SELFPAY ==
[2025-02-04 13:54] VITALS: BMI 35.5
--- NOTE | 2025-02-04 13:54 | A.OFFVIS_ITS ---
Vital Signs 02/04/25 13:54 Height 5 ft 1 in Weight 188 lb BMI 35.5 Intake Visit Reasons: OV- Right Knee F/U 3M s/p Euflexxa Intake Note: Cathy is a 64 year old Female who is here for her 3 month follow of her right knee, ST right knee Euflexxa series. Patient states that she only received mild relief from injections. Stockroom Inventory Clerk Required: Yes Stockroom Inventory Clerk Services: Stockroom Inventory Clerk Offered & Declined (Daughter) Allergies acetaminophen [From Excedrin Back and Body] Allergy (Verified 02/04/25 14:02) Unknown aspirin [From Excedrin Back and Body] Allergy (Verified 02/04/25 14:02) Unknown calcium carbonate [From Excedrin Back and Body] Allergy (Verified 02/04/25 14:02) Unknown HPI HPI OV- Right Knee F/U 3M s/p Euflexxa: Details: Cathy is a 64 year old Female who is here for her 3 month follow of her right knee, ST right knee Euflexxa series. Patient states that she only received mild relief from injections. She has a [id number] ambulatory capacity and is able to walk 20-30 minutes but with pain. She limps when she walks. She does not use a cane. Most her pain is medial and pain with stairs. [facility] Medical History History of renal calculi Left flank discomfort COVID-19 High cholesterol High blood pressure Asthma HTN (hypertension) Surgical History History of back surgery History of esophagogastroduodenoscopy (EGD) H/O colonoscopy Family History Father No problems noted. Mother No problems noted. Social History Alcohol intake: never Patient Tobacco Use Status: Never used Tobacco Current occupational status: retired Current occupation: right hand dominant Physical Exam Vital Signs: BMI result Body Mass Index 35.5 Extrem Other: Retropatellar tenderness to palpation palpation medial compartment with a mild effusion. 5-125 degrees of motion. Assessment & Plan Assessment & Plan (1) Localized osteoarthritis of right knee: Code(s): M17.11 - Unilateral primary osteoarthritis, right knee Category: Medical Plan: Patient states the viscosupplementation was somewhat helpful although still with pain. She does not really want surgery and she does have some risk factors but she does have severe patellofemoral OA. I discussed this with her. At this point in time she is able to continue activity as tolerated. No additional intervention warranted. Coding Level of Care Code Est Pt Level 3 (60348) Diagnoses Localized osteoarthritis of right knee M17.11
--- OUTSIDE RECORDS SUMMARY | 2025-02-04 15:07 | XMS_ITS | Encounter Summary ---
Author Organization [employer] [facility] Address [address] [facility] [address] [place] [address] Care Team Providers Care Utility Tech Name Role Phone Name, Best ROCA Primary Care Provider [phone] Encounter Details Date Type Department Care Team [...] Care Team (Late st Contact Info) Description 02/14/2025 1:45 PM EDT Office Visit [facility] [address] [place] [address] Seble Walden, OD [address] [place] [address] documented as of this encounter Visit Diagnoses Not on filedocumented in this encounter Care Teams Utility Tech Relationship Specialty Start Date End Date Name, MD Best [address] [place] [address] PCP - General Family Medicine 11/07/15 documented as of this encounter
== END 2025-02-04 14:51 | disposition home or self-care (01) ==
LOC: HO.HOS 13:53
PROVIDERS: PCP Internal Medicine Geriatric Medicine; Visit Provider Orthopaedic Surgery
DX: M17.11 Unilateral primary osteoarthritis, right knee (principal)
CPT/HCPCS: 99213

== ENCOUNTER → 2025-02-04 13:52 | Outpatient (BNVA) | payer MEDICARE, SELFPAY | PROVIDERS: PCP Internal Medicine Geriatric Medicine; Visit Provider Orthopaedic Surgery | DX: M17.11 Unilateral primary osteoarthritis, right knee (principal) | CPT/HCPCS: 99212 ==